=== PATIENT | male | born 1935 | race Caucasian/White ===

== ENCOUNTER 2020-03-06 10:40 | Observation (INO) ==
[2020-03-06] MEDS ORDERED: DiphenhydrAMINE HCL 50 MG/ML VIAL IV STA (11:07)
[2020-03-06] MEDS ORDERED: methylPREDNISolone 125 MG/2 ML VIAL IV STA (11:07)
[2020-03-06] MEDS ORDERED: FAMOTIDINE 20 MG in SYRINGE 3 ML IV STA (11:07)
[2020-03-06] MEDS ORDERED: SODIUM CHLORIDE 0.9% 500 ML IV ONE (11:07)
[2020-03-06 11:32] LABS: Basophils # (auto) 0.02 K/uL (0-0.2); Basophils % (auto) 0.3 %; Eosinophils # (auto) 0.12 K/uL (0-0.5); Eosinophils % (auto) 1.9 %; Hematocrit (blood only) 39.2 % (42-52); Hemoglobin 12.9 g/dL (14.0-18.0); Lymphocytes # (auto) 1.38 K/uL (1.2-3.4); Lymphocytes % (auto) 22.1 %; Mean Corpuscular Hemoglobin 30.6 pg (25-34); Mean Corpuscular Hgb Conc 32.9 g/dL (32-36); Mean Corpuscular Volume 92.9 fL (80-100); Mean Platelet Volume 10.5 fL (7.4-10.4); Monocytes # (auto) 0.48 K/uL (0.11-0.59); Monocytes % (auto) 7.7 %; Neutrophils # (auto) 4.25 K/uL (1.4-6.5); Platelet Count 204 K/uL (130-400); RDW Coefficient of Variation 13.6 % (11.5-14.5); Red Blood Count 4.22 M/uL (4.7-6.1); White Blood Count 6.25 K/uL (4.8-10.8)
[2020-03-06 11:41] LABS: Appearance Urine Clear (Clear); Bacteria Urine Automated Negative (Negative); Bilirubin Urine Negative (Negative); Blood Urine Negative (Negative); Color Urine Yellow; Epithelial Cell Urine Auto 0-5 /lpf (0-5); Glucose Urine UA 3+ (Negative); Ketones Urine Trace (Negative); Leukocyte Esterase Urine Negative (Negative); Nitrite Urine Negative (Negative); Protein Urine Trace (Negative); RBC Urine Automated 0-4 /hpf (0-4); Specific Gravity Urine 1.027 (1.000-1.030); Urobilinogen Urine Negative (Negative)
[2020-03-06 11:43] LABS: Partial Thromboplastin Ratio 0.7; Partial Thromboplastin Time 20.1 Seconds (21.0-31.0); Prothrombin Time 10.9 Seconds (9.0-12.0)
[2020-03-06 11:54] LABS: Alanine Aminotransferase 24 U/L (12-78); Albumin Globulin Ratio 0.9 (0.9-2); Albumin Level 3.5 gm/dl (3.4-5.0); Alkaline Phosphatase 71 U/L (45-117); Aspartate Aminotransferase 24 U/L (15-37); BUN Creatinine Ratio 12.2 (10-20); Bilirubin,Total 0.5 mg/dl (0.2-1); Blood Urea Nitrogen 14 mg/dl (7-18); Calcium 9.2 mg/dl (8.5-10.1); Carbon Dioxide 27 mmol/L (21-32); Chloride 107 mmol/L (98-107); Creatinine Clr Calc Pharmacy 43.5 ml/min; Est GFR (African American) 68.1; Est GFR (Non-African American) 58.7; Globulin 4.1 gm/dl (2.5-4.0); Glucose 173 mg/dl (70-99); Magnesium 1.6 mg/dl (1.8-2.4); Potassium 4.5 mmol/L (3.5-5.1); Sodium 139 mmol/L (136-145); Total Protein 7.6 gm/dl (6.4-8.2); Troponin I < 0.015 ng/ml (0-0.045)
[2020-03-06] MEDS ORDERED: FAMOTIDINE 20MG/5ML IV PUSH IV ONE (11:55)
--- NOTE | 2020-03-06 12:00 | XRay Report ---
XR chest 1V portable HISTORY: 84 years-old Male Pt c/o AMS acutely altered mental status COMPARISON: CT abdomen pelvis 03/03/2020 TECHNIQUE: Portable AP view of the chest FINDINGS: Cardiomegaly. Prior median sternotomy. Left subclavian pacer. Minimal bibasilar atelectasis, left gre ater than right. No pneumothorax, large pleural effusion, overt pulmonary edema or airspace consolida tion typical for pneumonia. Degenerative changes of the shoulders and spine. IMPRESSION: Cardiomegaly without acute process. ACT 112: Negative or not required by law. The above report was generated using voice recognition software. It may contain grammatical, syntax o r spelling errors. Electronically signed by: Jasen Garcia M.D. 03/06/2020 11:59 AM
[2020-03-06] MEDS ORDERED: MAGNESIUM SULFATE / D5W 1 GM/100 ML BAG IV STA (12:04)
[2020-03-06] MEDS ORDERED: OPTIRAY 320 125ml IV PRN (12:23)
--- NOTE | 2020-03-06 12:43 | CT Scan Report ---
CT SCAN OF THE BRAIN WITHOUT IV CONTRAST CLINICAL HISTORY: Strokelike symptoms. Change in mental status. COMPARISON STUDY: No priors. TECHNIQUE: Unenhanced axial CT scan of the brain is performed from the vertex to the skull base. A do se lowering technique was utilized adhering to the principles of ALARA. CT DOSE: 1101.86 mGy.cm FINDINGS: Brain parenchyma: There are age-related involutional changes noting mild to moderate subcortical and periventricular microangiopathic change. There is no hemorrhage, mass effect, or evidence of acute t erritorial ischemia by CT criteria. Lgoan-white matter differentiation is preserved. No extra-axial fl uid collection is seen. Ventricles, sulci, cisterns: Prominent secondary to involutional change. Intracranial vasculature: There is atherosclerotic calcification of the cavernous carotid and vertebr al arteries. Calvarium: Unremarkable. Sinuses and mastoids: Trace mucosal thickening is seen in the left maxillary antrum. The remaining vi sualized paranasal sinuses are clear. The mastoid air cells are well pneumatized. Orbits: The bony orbits are grossly intact. There are bilateral ocular lens implants. IMPRESSION: There is no hemorrhage, mass effect, or evidence of acute territorial ischemia by CT dez way. ACT 112: Negative or not required by law. Electronically signed by: Art Platt M.D. 03/06/2020 12:42 PM
--- NOTE | 2020-03-06 12:43 | CT Scan Report ---
NECK CTA HISTORY: Confusion. Stroke evaluation TECHNIQUE: Multiaxial CT images of the neck were performed following the intravenous administration o f contrast to evaluate the major cervical vessels. Maximum intensity projection images were also obta ined. All measurements were calculated based on NASCET criteria. A dose lowering technique was utili zed adhering to the principles of ALARA. COMPARISON STUDY: None. FINDINGS: The aortic arch and proximal great vessels are widely patent. There is no significant sten osis, occlusion, or dissection identified within the bilateral common carotid or vertebral arteries. Left-sided pacemaker wires and poststernotomy changes are noted. There is a 4.1 cm left thyroid nodul e. There is also a 1.7 cm substernal midline nodule which is also likely of thyroid origin. Mild calc ified plaque at the aortic arch/proximal great vessels. Mild calcified plaque within the proximal patience ateral internal carotid arteries. This results in up to 50% focal stenosis at the proximal left inter nal carotid artery and 20% stenosis of the proximal right internal carotid artery. IMPRESSION: 1. Mild calcified plaque within the bilateral carotid bifurcations. This results in 50% focal stenosi s of the proximal left internal carotid artery and 20% stenosis of the proximal right and throughout carotid artery. 2. A 4.1 cm left thyroid nodule as well as a 1.7 cm substernal area nodule. ACT 112: Negative or not required by law. Electronically signed by: Javi Hernandez M.D. 03/06/2020 12:42 PM
--- NOTE | 2020-03-06 12:44 | CT Scan Report ---
CT angio head w con CLINICAL HISTORY: 84 years-old Male with Stroke evaluation . Acute strokelike symptoms COMPARISON STUDY: Head CT of same day TECHNIQUE: Following the IV administration of 119 cc of Optiray 320, CT angiogram of the brain was pe rformed from the skull base to the vertex. Images are reviewed in the axial, sagittal, and coronal pl anes. 3-D MIPS images are created and assessed. IV contrast was administered without complication. Al l measurements were obtained according to NASCET criteria. A dose lowering technique was utilized adh ering to the principles of ALARA. FINDINGS: CT ANGIOGRAM OF THE BRAIN: The imaged bilateral internal carotid arteries are patent. Moderate calcified plaque of the cavernous and supraclinoid segments. The bilateral anterior and middle cerebral arteries are also patent. The vertebrobasilar system and posterior cerebral arteries are patent with mild multifocal luminal narrow ing of the posterior cerebral arteries. There is no aneurysm, high-grade stenosis, or proximal branch occlusion identified. Dural sinuses appear patent. Prior bilateral lens replacement. Age-related inv olutional changes. Minimal mucosal thickening of the maxillary sinuses and ethmoid air cells. IMPRESSION: Unremarkable CTA of the head without aneurysm, dissection, high-grade stenosis or proxima l branch occlusion. ACT 112: Negative or not required by law. The above report was generated using voice recognition software. It may contain grammatical, syntax o r spelling errors. Electronically signed by: Jasen Garcia M.D. 03/06/2020 12:43 PM
--- NOTE | 2020-03-06 12:50 | Electrocardiogram Report ---
Test Reason : Blood Pressure : / mmHG Vent. Rate : 062 BPM Atrial Rate : 062 BPM P-R Int : 154 ms QRS Dur : 202 ms QT Int : 458 ms P-R-T Axes : 016 -58 124 degrees QTc Int : 464 ms Poor data quality, interpretation may be adversely affected Atrial-sensed ventricular-paced rhythm Abnormal ECG When compared with ECG of 03-MAR-2020 14:12, Vent. rate has increased BY 2 BPM Confirmed by Ruiz Wheeler ([id number]) on 03/06/2020 12:50:13 PM Referred By: Confirmed By:Ruiz Wheeler
[2020-03-06 12:52] LABS: Lyme Ab IgM w/WB Rflx Negative (Negative)
[2020-03-06] MEDS ORDERED: cefTRIAXone SODIUM 2,000 MG/70 ML BAG IV STA (13:09)
[2020-03-06 13:16] LABS: Lyme Ab IgG w/WB Rflx Positive (Negative)
[2020-03-06] MEDS ORDERED: DOXYCYCLINE HYCLATE 100 MG CAP PO STA (13:27)
--- NOTE | 2020-03-06 14:38 | History & Physical Report ---
Date of Service March 06, 2020 Assessment & Plan (1) Altered mental status: Pt is 84 y/o M with PMH CAD s/p CABG, stent, PAF s/p watchman procedure in 2018 no longer on Coumadin, h/o carotid artery stenosis with 70% stenosis of LICA with failed previous attempt at stent now on aspirin and Plavix, SSS s/p pacemaker, HTN, HLD, DM II, h/o thyroid nodule, COPD, anxiety, depression, insomnia, h/o bladder stimulator for urinary incontinence placed in 2004, inguinal hernia presented to ER with c/o increased agitation and confusion x 2 weeks. 02/13/2020 Zoloft and Trazodone were started and lorazepam was discontinued. Reports only took Zoloft for approx 2 weeks and stopped. Lorazepam restarted by PCP on 03/01/2020 secondary to pt's increased anxiety and agitation. Pt also taking hydrocodone for lower abdominal pain from hernia and bladder stimulator. In ER pt afebrile, vitals stable. No leukocytosis, magnesium: 1.6, otherwise no significant electrolyte abnormality, UA not consistent with UTI CT HEAD: There is no hemorrhage, mass effect, or evidence of acute territorial ischemia by CT criteria. CTA HEAD: Unremarkable CTA of the head without aneurysm, dissection, high-grade stenosis or proximal branch occlusion. CTA NECK:1. Mild calcified plaque within the bilateral carotid bifurcations. This results in 50% focal stenosis of the proximal left internal carotid artery and 20% stenosis of the proximal right and throughout carotid artery. 2. A 4.1 cm left thyroid nodule as well as a 1.7 cm substernal area nodule. CXR: Cardiomegaly without acute process. CT's head without acute finding of stroke. No focal deficits on exam. Will hold on MRI at this time as pt has pacemaker. Symptoms may be secondary to medication withdrawal of ativan, medication interaction with ativan, hydrocodone or new medication side effect. No signs of acute infection at this time In ER pt currently calm and cooperative and appears oriented tox screen pending Continue pt's ativan. Will continue hydrocodone prn with careful spacing to try to avoid ativan and hydrocodone being given similar times PT/OT consult Will continue pt's statin, Plavix and aspirin Monitor for further AMS, delirium If worsening symptoms consider neurology consult (2) Hypomagnesemia: Magnesium: 1.6 In ER given magnesium 1GM IV Monitor magnesium and BMP in am (3) Rash: Pt with noted erythematous, non-pruritic rash to back and chest when in ER Pt with h/o Lyme disease in 2014 and had reported bulls-eye rash at that time Today in ER given Rocephin and doxycycline in case this was tick borne related rash At this time rash does not appear to be consistent with erythema migrans or consistent with other tick borne illnesses. Pt without any fevers, myalgias, arthralgias. No leukocytosis or leukopenia, no thrombopenia and normal LFTs Lyme IGG positive with Western blot pending. Anaplasmosis PCR pending Pt received solumedrol, benadryl, pepcid in ER for the contrast CT as has h/o hives with IVP dye and since rash has improved Rash may be drug reaction Continue to monitor rash and if reoccurs consider secondary to new medication he is on (trazodone, pt no longer taking zoloft) (4) Anxiety and depression: Recent med changes with d/c Ativan on 02/13/2020 (Unsure if pt had some remaining from prior prescription and was still taking, but fairly sure pt did not have any for approx 2 weeks). Was restarted 03/01/2020 secondary to increased anxiety and agitation Trazodone and Zoloft started on 02/13/2020. Took Zoloft for 2 weeks and self discontinued. Continue ativan prn, continue trazodone for now (5) Abdominal hernia: H/O inguinal hernia with lower abdominal pain. Following with general surgery. Consideration of hernia repair in the future Continue hydrocodone prn (6) CAD (coronary artery disease): S/P Stent and CABG No CP or SOB Continue aspirin, atorvastatin, metoprolol (7) SSS (sick sinus syndrome): S/P pacemaker Paced rhythm on EKG (8) Paroxysmal atrial fibrillation: s/p watchman procedure in 2018 no longer on Coumadin Continue metoprolol (9) Diabetes mellitus, type II: A1c: 6.8 on 02/14/2020 Hold metformin Novolog sliding scale per protocol (10) COPD (chronic obstructive pulmonary disease): No signs of exacerbation Continue home inhalers (11) HTN (hypertension): Stable Continue amlodipine, metoprolol (12) Carotid stenosis: h/o carotid artery stenosis with 70% stenosis of LICA with failed previous attempt at stent now on aspirin and Plavix Todays CTA neck: Mild calcified plaque within the bilateral carotid bifurcations. This results in 50% focal stenosis of the proximal left internal carotid artery and 20% stenosis of the proximal right and throughout carotid artery. Continue aspirin and Plavix (13) Thyroid nodule: Known thyroid nodule Today's CTA neck: 4.1 cm left thyroid nodule as well as a 1.7 cm substernal area nodule (14) Urinary incontinence: H/O urinary incontinence with bladder stimulator placed in 2004. Reported stimulator no longer working. Has upcoming appointment with urology in [place] next week -Pt is able to urinate DVT Prophylaxis -Lovenox SQ DNR/DNI as per discussion with pt Follows with Dr Joey Gutierrez for routine care Pt was seen and care coordinated with Dr Rodas. See addendum History of Present Illness Chief Complaint: AMS Primary Care Provider: Kori Gutierrez MD Pt is 84 y/o M with PMH CAD s/p CABG, stent, PAF s/p watchman procedure in 2017 no longer on coumadin, h/o carotid artery stenosis with 70% stenosis of LICA with failed previous attempt at stent now on aspirin and Plavix, SSS s/p pacemaker, HTN, HLD, DM II, h/o thyroid nodule, COPD, anxiety, depression, insomnia, h/o bladder stimulator for urinary incontinence placed in 2004, inguinal hernia presented to ER with c/o altered mental status. History assistance from pt's daughter. Pt with reported increased anxiety and depression since staying at home with the current pandemic. on 02/13/2020 Zoloft and Trazodone were started and lorazepam was discontinued. Daughter is unsure if pt had any lorazepam left over but does believe pt hasn't take for at least two weeks until it was restarted by PCP on 03/01/2020 secondary to pt's increased anxiety and agitation. Reports only took zoloft for approx 2 weeks and stopped. Daughter reports PCP was unaware that pt had been taking lorazepam 1-2 tabs daily and reports has been on for 30 years. Pt also taking hydrocodone for lower abdominal pain from hernia and bladder stimulator. Pt to have upcoming appointment with urology as stimulator no longer working. Pt able to urinate. Did count his pills and he has only taken 8 hydrocodone pills in the last 6 days. Unsure if pt taking lorazepam and hydrocodone too close together. Reports past 2 weeks pt has been more agitated and accusing of having an affair and being very agitated with which is very unusual. Yesterday reports thought pt may have had some slurred speech but pt had no extremity weakness, no facial drooping. Daughter states noticed decline over past 2 weeks and hasn't been able to have full conversation with pt. Have been taking temperature regularly at home and no fevers reported. Denies cough, SOB, CP, N/V/D. Was unaware of any rash however when took pt's shirt off in ER today noticed a red rash to back and upper chest that was non-pruritic. H/O lyme disease in 2014 requiring hospitalization at [facility]. Denies any known recent tick bites or insect bites. Pt has been staying mostly indoors. Denies ill contacts. Denies SCHMITT, dizziness, syncope, vision changes, neck pain, CP, SOB, orthopnea, palpit ations, cough, sore throat, choking, otalgia, rhinorrhea, paresthesias, weakness, extremity weakness, extremity edema, dysuria, hematuria. Allergies Allergy/AdvReac Type Severity Reaction Status Date / Time isosorbide Allergy Severe GI SYMPTOMS Verified 03/06/20 12:28 IODINE CONTRAST Allergy Severe HIVES Uncoded 03/06/20 12:28 SULFA Allergy Severe RASH Uncoded 03/06/20 12:28 Home Medications Home Medications Medication Instructions Recorded Confirmed Type albuterol sulfate 2.5 mg INHALATION Q4H PRN 03/03/20 03/06/20 History amlodipine 5 mg PO DAILY 03/03/20 03/06/20 History aspirin [Aspirin Low Dose] 81 mg PO DAILY 03/03/20 03/06/20 History atorvastatin 20 mg PO PM 03/03/20 03/06/20 History budesonide-formoterol [Symbicort] 2 puff INHALATION BID 03/03/20 03/06/20 History clopidogrel 75 mg PO DAILY 03/03/20 03/06/20 History fluticasone propionate 2 spray INTRANASAL DAILY 03/03/20 03/06/20 History hydrocodone-acetaminophen 1 tab PO Q8H PRN 03/03/20 03/06/20 History lorazepam 1 mg PO Q8H PRN 03/03/20 03/06/20 History metformin 500 mg PO BID 03/03/20 03/06/20 History metoprolol tartrate 50 mg PO BID 03/03/20 03/06/20 History omeprazole 20 mg PO BID 03/03/20 03/06/20 History sertraline 25 mg PO DAILY 03/06/20 03/06/20 History trazodone 50 mg PO DAILY 03/06/20 03/06/20 History Past Med/Surg History Medical History (Updated 03/06/20 @ 16:11 by Zuly Mays PA-C) Abdominal hernia Anxiety and depression Bronchiectasis CAD (coronary artery disease) Carotid stenosis COPD (chronic obstructive pulmonary disease) Diabetes (Inactive) Diabetes mellitus, type II GERD (gastroesophageal reflux disease) Heart disease (Inactive) HLD (hyperlipidemia) HTN (hypertension) Insomnia Pacemaker Paroxysmal atrial fibrillation SSS (sick sinus syndrome) Thyroid nodule Surgical History (Updated 03/06/20 @ 15:12 by Zuly Mays PA-C) History of bladder surgery Has bladder stimulator History of heart artery stent Hx of CABG Social History (Updated 03/03/20 @ 12:53 by Robbie Moses MD) Smoking Status: Never smoker Hx Alcohol Use: No Hx Substance Use: No Preferred Language: Fijian Communication Ability: Effective Beliefs That Will Affect Care: None Current Living Situation: Spouse Current [facility] Situation Comment[email or web address] current occupational status: retired Other Information That Helps Us Care for You: No Feels Safe at Home: Yes Safety Concerns: Feels Safe At This Time Review of Systems Review of Systems: All systems reviewed & are unremarkable except as noted in HPI & below Physical Exam Physical Exam: General: no distress, WDWN Head: normocephalic, atraumatic Eyes: Very Hard of hearing, PERRL, EOM's intact, conjunctiva non-injected, anicteric ENT: normal inspection external ears, nose, mucous membranes moist Neck: supple, trachea midline Lungs: clear, no respiratory distress, no wheezing/rhonchi/rales CV: RRR, no murmur, no pretibial edema Abd: normal BS, soft, non-tender Ext: no cyanosis, no calf tenderness, able to move extremities, sensation to light touch intact Neuro: A&O to person, place, knows president, no focal deficits noted, normal affect Skin: warm, dry, faint pink macules to upper back, no significant rash to chest and no rash noted to extremities Results & Data Results & Data ([facility]) Vital Signs (Past 12 Hours) Vital Signs Temp Pulse Pulse Resp BP BP Pulse Ox 03/06/20 14:24 60 16 147/78 H 93 03/06/20 13:31 60 16 163/64 H 95 03/06/20 12:04 60 22 120/70 97 03/06/20 10:49 36.5 C 61 16 125/72 98 Laboratory Results Short CBC 03/06/20 Range/Units 11:22 WBC 6.25 (4.8-10.8) K/uL Hgb 12.9 L (14.0-18.0) g/dL Hct 39.2 L (42-52) % Plt Count 204 (130-400) K/uL BMP 03/06/20 11:22 Sodium 139 Potassium 4.5 Chloride 107 Carbon Dioxide 27 BUN 14 Creatinine 1.14 Glucose 173 H Calcium 9.2 Cardiac Enzymes 03/06/20 Range/Units 11:22 Troponin I < 0.015 (0-0.045) ng/ml Liver Function 03/06/20 Range/Units 11:22 Total Bilirubin 0.5 (0.2-1) mg/dl AST 24 (15-37) U/L ALT 24 (12-78) U/L Alkaline Phosphatase 71 (45-117) U/L Albumin 3.5 (3.4-5.0) gm/dl Urine 03/06/20 Range/Units 11:22 Urine Color Yellow Urine Appearance Clear (Clear) Urine pH 5.0 (4.5-7.5) Ur Specific [place] 1.027 (1.000-1.030) Urine Protein Trace H (Negative) Urine Glucose (UA) 3+ H (Negative) Diagnostic Findings CT HEAD: IMPRESSION: There is no hemorrhage, mass effect, or evidence of acute territorial ischemia by CT criteria. CTA HEAD: IMPRESSION: Unremarkable CTA of the head without aneurysm, dissection, high- grade stenosis or proximal branch occlusion. CTA NECK: IMPRESSION: 1. Mild calcified plaque within the bilateral carotid bifurcations. This results in 50% focal stenosis of the proximal left internal carotid artery and 20% stenosis of the proximal right and throughout carotid artery. 2. A 4.1 cm left thyroid nodule as well as a 1.7 cm substernal area nodule. CXR: IMPRESSION: Cardiomegaly without acute process. ECG Findings: + paced rhythm Supervising Physician Co-Signing Physician Notes I saw this patient with the physician delivery driver assistant, I participated in the history, physical, review of systems, and physical exam. I reviewed the medications with the patient and the physician delivery driver assistant and helped reconcile the medications. I helped take a detailed family and social history as well. I formulated the assessment and plan personally with the physician delivery driver assistant and went over it with the patient. ROS-No Headache, No Visual Changes, No Nausea, No Vomiting, No Fever, No Chills, No Neck Pain or Stiffness, No Chest Pain, No Palpitations, No SOB, No VALE, No Cough, No Sputum, No Wheezing, No Abdominal Pain, No Diarrhea, No Hematemesis, No Hemoptysis, No Unexpected Weight Loss, No Flank pain, No Melena, No Hematochezia, No Frequency, No Urgency, No Burning, No Hematuria, No Rashes, No Diaphoresis. Appetite is Normal Physical Exam Gen-AAO x 3, NAD, Afebrile Head-NCAT, EOMI, PERRLA, Anicteric Sclera, No Posterior Pharyngeal Erythema Neck-Supple, No JVD, No Thyromegaly, No Masses, No LAD, No Bruits Lungs-Clear to Auscultation Bilaterally, No Rales, No Rhonchi, No Wheezing, No Crepitus Chest-No S4, +S1, +S2, No S3, No Murmurs, No Rubs, No Gallops, No Ectopy Abdomen-Soft, Bowel Sounds Present, Non Tender, Non Distended, No Hepatomegaly, No Splenomegaly, No Palpable Masses, No Rebound, No Rigidity, No Guarding Musculoskeletal-Full Range of Motion Bilaterally, No CVAT Extremities-No Cyanosis, No Clubbing, No Edema Nuero-Cranial Nerves II-XII grossly intact, Motor WNL, DTRs WNL, Strength WNL, Non Focal Psych-Normal Mood
[2020-03-06] MEDS ORDERED: ALBUTEROL 0.083% NEBU SOLN 3 ML VIAL INH PRN (15:52)
[2020-03-06] MEDS ORDERED: GLUCOSE 40% GEL 15 GM TUBE PO PRN (15:52)
[2020-03-06] MEDS ORDERED: ACETAMINOPHEN 325 MG TAB PO PRN (15:52)
[2020-03-06] MEDS ORDERED: GLUCAGON FOR INJ 1 MG VIAL SQ PRN (15:52)
[2020-03-06] MEDS ORDERED: DEXTROSE 50% 50 ML SYRINGE IV PRN (15:52)
[2020-03-06] MEDS ORDERED: CARBOHYDRATES FOR HYPOGLYCEMIA PO PRN (15:52)
[2020-03-06] MEDS ORDERED: GLUCOSE 10 TABS/TUBE PO PRN (15:52)
[2020-03-06] MEDS ORDERED: POLYETHYLENE (MIRALAX) 17 GM PACK PO PRN (15:52)
[2020-03-06] MEDS ORDERED: HYDROCODONE/ACETAMOPHEN 5/325MG TAB PO PRN (16:18)
[2020-03-06] MEDS ORDERED: LORazepam 1 MG TAB PO PRN (16:19)
[2020-03-06] MEDS: INSULIN ASPART 100 UNITS/ML 3 ML PEN SC SCH ×2 (17:37→21:18)
[2020-03-06 18:41] LABS: Amphetamines+Metham, Urine Neg (Neg); Barbiturates, Urine Neg (Neg); Benzodiazepine, Urine Neg (Neg); Cocaine, Urine Neg (Neg); MDMA (Ecstacy), Urine Neg (Neg); Methadone, Urine Neg (Neg); Opiate, Urine Pos (Neg); Phencyclidine, Urine Neg (Neg)
[2020-03-06] MEDS: PANTOprazole 40 MG TAB PO SCH (20:23)
[2020-03-06] MEDS: METOPROLOL TARTRATE 50 MG TAB PO SCH (20:23)
[2020-03-06] MEDS ORDERED: TRAZODONE HCL 50 MG TAB PO SCH (21:00)
[2020-03-06] MEDS ORDERED: ENOXAPARIN INJ 30 MG/0.3 ML SYR SQ SCH (21:00)
[2020-03-06] MEDS ORDERED: ATORVASTATIN 20 MG TAB PO SCH (21:00)
[2020-03-07] MEDS: PANTOprazole 40 MG TAB PO SCH (07:30)
[2020-03-07] MEDS: METOPROLOL TARTRATE 50 MG TAB PO SCH (07:30)
[2020-03-07 08:12] LABS: Hematocrit (blood only) 37.2 % (42-52); Hemoglobin 12.2 g/dL (14.0-18.0); Mean Corpuscular Hemoglobin 29.8 pg (25-34); Mean Corpuscular Hgb Conc 32.8 g/dL (32-36); Mean Platelet Volume 9.3 fL (7.4-10.4); Platelet Count 252 K/uL (130-400); RDW Coefficient of Variation 13.4 % (11.5-14.5); RDW Standard Deviation 44.4 fL (36.4-46.3); Red Blood Count 4.09 M/uL (4.7-6.1); White Blood Count 8.63 K/uL (4.8-10.8)
[2020-03-07 08:48] LABS: BUN Creatinine Ratio 15.7 (10-20); Calcium 9.2 mg/dl (8.5-10.1); Creatinine Clr Calc Pharmacy 43.1 ml/min; Est GFR (African American) 67.4; Est GFR (Non-African American) 58.1; Magnesium 1.9 mg/dl (1.8-2.4); Potassium 4.3 mmol/L (3.5-5.1)
[2020-03-07] MEDS: INSULIN ASPART 100 UNITS/ML 3 ML PEN SC SCH ×3 (08:52→16:53)
[2020-03-07] MEDS ORDERED: CLOPIDOGREL BISULFATE 75 MG TAB PO SCH (09:00)
[2020-03-07] MEDS ORDERED: SERTRALINE HCL 50 MG TABLET PO SCH (09:00)
[2020-03-07] MEDS ORDERED: FLUTICASONE/VILANTEROL 100/25MCG 14 PUFFS/INHALER INH SCH (09:00)
[2020-03-07] MEDS ORDERED: ASPIRIN 81 MG ECTAB PO SCH (09:00)
[2020-03-07] MEDS ORDERED: AMLODIPINE BESYLATE 5 MG TAB PO SCH (09:00)
[2020-03-07] MEDS ORDERED: FLUTICASONE PROPIONATE NA SPR 16 GM BTL NAE SCH (09:00)
--- NOTE | 2020-03-07 10:37 | Emergency Department Note ---
History of Present Illness General Chief complaint: Confusion Stated complaint: SENT BY FOR CT HEAD CONFUSION, Time Seen by Provider: 03/06/20 10:57 Source: patient, family (daughter), RN notes reviewed and old records reviewed Mode of arrival: ambulatory Limitations: altered mental status History of Present Illness Provider complaint: Altered mental status Onset (ago): week(s) 2 Maximum Pain Intensity: 5 Associated symptoms: + confusion and + other (rash); no chest pain, no diaphoresis, no fever/chills, no headaches, no nausea/vomiting and no shortness of breath Treatments prior to arrival: none This is an 84-year-old male who presents the emergency department complaining of altered mental status. The patient was at a routine cardiology appointment today which she was going to for a hernia repair. The mine production engineer was concerned about the patient's change in mentation therefore sent the patient to the emergency department. Patient's daughter relates that he had multiple medication changes about 2 weeks ago including being taking off lorazepam and being started on 2 psychiatric medications. Since that time the patient has become increasingly agitated. In addition the patient has a diffuse rash present on his chest extremities and back. The patient does have a history of Lyme disease. Patient denies any pain. Home Medications Home Medications Medication Instructions Recorded Confirmed Type albuterol sulfate 2.5 mg INHALATION Q4H PRN 03/03/20 03/06/20 History amlodipine 5 mg PO DAILY 03/03/20 03/06/20 History aspirin [Aspirin Low Dose] 81 mg PO DAILY 03/03/20 03/06/20 History atorvastatin 20 mg PO PM 03/03/20 03/06/20 History budesonide-formoterol [Symbicort] 2 puff INHALATION BID 03/03/20 03/06/20 History clopidogrel 75 mg PO DAILY 03/03/20 03/06/20 History fluticasone propionate 2 spray INTRANASAL DAILY 03/03/20 03/06/20 History hydrocodone-acetaminophen 1 tab PO Q8H PRN 03/03/20 03/06/20 History lorazepam 1 mg PO Q8H PRN 03/03/20 03/06/20 History metformin 500 mg PO BID 03/03/20 03/06/20 History metoprolol tartrate 50 mg PO BID 03/03/20 03/06/20 History omeprazole 20 mg PO BID 03/03/20 03/06/20 History sertraline 25 mg PO DAILY 03/06/20 03/06/20 History trazodone 50 mg PO DAILY 03/06/20 03/06/20 History Allergies Allergy/AdvReac Type Severity Reaction Status Date / Time isosorbide Allergy Severe GI SYMPTOMS Verified 03/06/20 12:28 IODINE CONTRAST Allergy Severe HIVES Uncoded 03/06/20 12:28 SULFA Allergy Severe RASH Uncoded 03/06/20 12:28 Past Med/Surg History Medical History Abdominal hernia Anxiety and depression Bronchiectasis CAD (coronary artery disease) Carotid stenosis COPD (chronic obstructive pulmonary disease) Diabetes (Inactive) Diabetes mellitus, type II GERD (gastroesophageal reflux disease) Heart disease (Inactive) HLD (hyperlipidemia) HTN (hypertension) Insomnia Pacemaker Paroxysmal atrial fibrillation SSS (sick sinus syndrome) Thyroid nodule Surgical History History of bladder surgery Has bladder stimulator History of heart artery stent Hx of CABG Social History Smoking Status: Never smoker Hx Alcohol Use: No Hx Substance Use: No Preferred Language: Bengali Communication Ability: Effective Beliefs That Will Affect Care: None Current Living Situation: Spouse Current Living Situation Comment: [facility] [employer] current occupational status: retired Other Information That Helps Us Care for You: No Feels Safe at Home: Yes Safety Concerns: Feels Safe At This Time Review of Systems A total of 10 systems reviewed and were otherwise negative Physical Exam Vital Signs Vital Signs - 24 hr 03/06/20 12:04 03/06/20 13:31 Pulse Rate [Left Finger] 60 60 Respiratory Rate 22 16 Blood Pressure [Left Arm] 120/70 163/64 H Blood Pressure Mean [Left Arm] 86 97 Pulse Oximetry 97 95 Oxygen Delivery Method Room Air VITAL SIGNS - Vital signs and nursing notes were reviewed. GENERAL - 84-year-old male appearing stated age who is in no acute distress. Communicates well with provider and answers questions appropriately. SKIN - diffuse petechial like rash to back and front HEAD - NC/AT. EYES - PERRL with EOMI bilaterally. Sclera anicteric. Palpebral conjunctiva pink and moist with no injection noted. EARS - No deformities of external structures noted on gross examination bilaterally. No pain elicited with palpation of the tragus bilaterally. External auditory canals without discharge or otorrhea. Tympanic membranes pearly logan without retraction or bulging. No fluid or purulent material visualized behind the TM. Handle of malleus, umbo, cone of light, pars tensa/flaccid all easily visualized. NOSE - Midline and without cyanosis. No epistaxis or purulent drainage noted. Septum midline without deviation or septal hematoma noted. MOUTH/OROPHARYNX - Without perioral cyanosis. Buccal mucosa pink and moist and without leukoplakia. Tongue midline with equal elevation of palate bilaterally. No tonsillar hypertrophy, erythema, or exudates noted. dentition noted. NECK - Neck with FROM. Supple to palpation. lymphadenopathy noted. No nuchal rigidity. LUNGS - Chest wall symmetric without accessory muscle use, intercostals retractions, or central cyanosis. Normal vesicular breath sounds CTA B/L. No wheezes, rales, or rhonchi appreciated. CARDIAC - RRR with S1/S2. No murmur, rubs, or gallops appreciated. ABDOMEN - Abdominal contour without pulsations or visible masses. BS normoactive all four quadrants. No tenderness, palpable masses, hepatosplenomegaly, or ascites noted. EXTREMITIES - No clubbing or peripheral cyanosis. No pretibial edema present. +3/5 radial, posterior tibial, and dorsalis pedis pulses palpated throughout. +5/5 strength noted in UE/LE bilaterally. NEUROLOGIC - Cranial nerves II through XII grossly intact. Sensory intact to light touch throughout. Patellar reflexes +2/4. PSYCH - A&Ox3 and cooperates fully with examiner. Pt is very pleasant and interacts well with examiner. Course Administered Medications Acetaminophen (Tylenol) 650 mg PO Q4H PRN PRN Reason: Pain or Fever Stop: 04/05/20 15:51 Last Admin: 03/07/20 07:31 Dose: 650 mg Documented by: [id number] Hydrocodone Bitart/Acetaminophen ([place] 5/325) 1 tab PO Q8H PRN PRN Reason: Pain Stop: 03/20/20 16:17 Last Admin: 03/06/20 23:15 Dose: 1 tab Documented by: [id number] Albuterol (Ventolin 0.083% 2.5mg/3ml) 2.5 mg INH Q4H PRN PRN Reason: Shortness Of Breath Or Wheezing Stop: 04/05/20 15:51 Last Admin: 03/06/20 20:37 Dose: 2.5 mg Documented by: [id number] Amlodipine Besylate (Norvasc) 5 mg PO DAILY [facility] Stop: 04/06/20 08:59 Last Admin: 03/07/20 07:30 Dose: 5 mg Documented by: [id number] Aspirin (Ecotrin Ectab) 81 mg PO DAILY [facility] Stop: 04/06/20 08:59 Last Admin: 03/07/20 07:29 Dose: 81 mg Documented by: [id number] Atorvastatin Calcium (Lipitor) 20 mg PO PM [facility] Stop: 04/05/20 20:59 Last Admin: 03/06/20 20:23 Dose: 20 mg Documented by: [id number] Clopidogrel Bisulfate (Plavix) 75 mg PO DAILY [facility] Stop: 04/06/20 08:59 Last Admin: 03/07/20 07:30 Dose: 75 mg Documented by: [id number] Enoxaparin Sodium (Lovenox) 30 mg SQ Q24H [facility] Stop: 04/05/20 15:51 Last Admin: 03/06/20 20:23 Dose: 30 mg Documented by: [id number] Fluticasone Propionate (Flonase) 2 sprays ALEXUS DAILY [facility] Stop: 04/06/20 08:59 Last Admin: 03/07/20 07:29 Dose: 2 sprays Documented by: [id number] Fluticasone/Vilanterol (Breo Ellipta 100/25 Mcg Inh) 1 puffs INH DAILY [facility] Stop: 04/06/20 08:59 Last Admin: 03/07/20 07:29 Dose: 1 puffs Documented by: [id number] Insulin Aspart (Novolog Flexpen) 0 units SC ACHS [facility] Stop: 04/05/20 16:29 Last Admin: 03/07/20 08:52 Dose: 4 units Documented by: [id number] Cosigned by: [id number] Admin: 03/06/20 21:18 Dose: 1 units Documented by: [id number] Cosigned by: [id number] Admin: 03/06/20 17:37 Dose: 2 units Documented by: [id number] Cosigned by: [id number] Metoprolol Tartrate (Lopressor) 50 mg PO BID [facility] Stop: 04/05/20 20:59 Last Admin: 03/07/20 07:30 Dose: 50 mg Documented by: [id number] Admin: 03/06/20 20:23 Dose: 50 mg Documented by: [id number] Pantoprazole Sodium (Protonix) 40 mg PO BID [facility] Stop: 04/05/20 20:59 Last Admin: 03/07/20 07:30 Dose: 40 mg Documented by: [id number] Admin: 03/06/20 20:23 Dose: 40 mg Documented by: [id number] Sertraline HCl (Zoloft) 25 mg PO DAILY [facility] Stop: 04/06/20 08:59 Last Admin: 03/07/20 07:30 Dose: 25 mg Documented by: [id number] Trazodone HCl (Desyrel) 50 mg PO HS [facility] Stop: 04/05/20 20:59 Last Admin: 03/06/20 20:22 Dose: 50 mg Documented by: [id number] Discontinued Medications Diphenhydramine HCl (Benadryl) 25 mg IV NOW STA Stop: 03/06/20 11:08 Last Admin: 03/06/20 11:57 Dose: 25 mg Documented by: [id number] Diphenhydramine HCl (Benadryl Capsule) 25 mg PO NOW ONE Stop: 03/07/20 04:16 Last Admin: 03/07/20 04:30 Dose: Not Given Documented by: [id number] Diphenhydramine HCl (Benadryl Capsule) Confirm Administered Dose 25 mg .ROUTE .STK-MED ONE Stop: 03/07/20 04:25 Last Admin: 03/07/20 04:30 Dose: 25 mg Documented by: [id number] Doxycycline Hyclate (Vibramycin) 100 mg PO NOW STA Stop: 03/06/20 13:28 Last Admin: 03/06/20 13:52 Dose: 100 mg Documented by: [id number] Famotidine (Pepcid 20mg Iv Push) Confirm Administered Dose 20 mg IV .STK-MED ONE Stop: 03/06/20 11:56 Last Admin: 03/06/20 11:57 Dose: 20 mg Documented by: [id number] Famotidine 20 mg/ Syringe 5 mls @ 2.5 mls/min IV NOW STA Stop: 03/06/20 11:08 Last Admin: 03/06/20 11:57 Dose: Not Given Documented by: [id number] Sodium Chloride (Nss) 500 mls @ 999 mls/hr IV .Q31M ONE Stop: 03/06/20 11:37 Last Infusion: 03/06/20 12:30 Dose: 0 mls/hr Documented by: [id number] Admin: 03/06/20 11:58 Dose: 999 mls/hr Documented by: [id number] Magnesium Sulfate/Dextrose (Magnesium Sulfate / D5w) 1 gm in 100 mls @ 100 mls/hr IV NOW STA Stop: 03/06/20 13:03 Last Infusion: 03/06/20 13:03 Dose: 0 mls/hr Documented by: [id number] Admin: 03/06/20 12:08 Dose: 100 mls/hr Documented by: [id number] Ceftriaxone Sodium (Rocephin) 2,000 mg in 70 mls @ 140 mls/hr IV NOW STA Stop: 03/06/20 13:38 Last Infusion: 03/06/20 14:10 Dose: 0 mls/hr Documented by: [id number] Admin: 03/06/20 13:35 Dose: 140 mls/hr Documented by: [id number] Ioversol (Optiray 320 125ml) 119 ml IV ONCE PRN PRN Reason: Interaction Checking Stop: 03/10/20 12:22 Last Admin: 03/06/20 12:23 Dose: 119 ml Documented by: [id number] Methylprednisolone (Solumedrol) 125 mg IV NOW STA Stop: 03/06/20 11:08 Last Admin: 03/06/20 11:57 Dose: 125 mg Documented by: [id number] Medical Decision Making Differential Diagnosis Infection, dehydration, metabolic abnormality, hypo/hyperglycemia, electrolyte disturbance, anemia, hypoxia, cardiac sources, intracerebral event, toxicologic, neurologic, as well as other pathologies. Medical Records Attestation: I reviewed the patient's medical records. Home Medications Current Medication List: was personally reviewed by me Laboratory Data Attestation: I reviewed the patient's lab results. Result diagrams: 03/07/20 07:42 03/07/20 07:42 Lab Results 03/06/20 03/06/20 03/06/20 Range/Units 11:22 11:22 11:22 WBC 6.25 (4.8-10.8) K/uL RBC 4.22 L (4.7-6.1) M/uL Hgb 12.9 L (14.0-18.0) g/dL Hct 39.2 L (42-52) % MCV 92.9 (80-100) fL MCH 30.6 (25-34) pg MCHC 32.9 (32-36) g/dL RDW Std Deviation 46.0 (36.4-46.3) fL RDW Coeff of Ashley 13.6 (11.5-14.5) % Plt Count 204 (130-400) K/uL MPV 10.5 H (7.4-10.4) fL Immature Gran % (Auto) 0.0 % Neut % (Auto) 68.0 % Lymph % (Auto) 22.1 % [place] % (Auto) 7.7 % Eos % (Auto) 1.9 % Baso % (Auto) 0.3 % Neut # (Auto) 4.25 (1.4-6.5) K/uL Lymph # (Auto) 1.38 (1.2-3.4) K/uL [place] # (Auto) 0.48 (0.11-0.59) K/uL Eos # (Auto) 0.12 (0-0.5) K/uL Baso # (Auto) 0.02 (0-0.2) K/uL Immature Gran # (Auto) 0.00 (0.00-0.02) K/uL PT 10.9 (9.0-12.0) Seconds INR 1.0 (0.9-1.1) APTT 20.1 L (21.0-31.0) Seconds PTT Ratio 0.7 Sodium (136-145) mmol/L Potassium (3.5-5.1) mmol/L Chloride (98-107) mmol/L Carbon Dioxide (21-32) mmol/L Anion Gap (3-11) BUN (7-18) mg/dl Creatinine (0.6-1.4) mg/dl Est Cr Clr Drug Dosing ml/min Est GFR ( Amer) Est GFR (Non-Af Amer) BUN/Creatinine Ratio (10-20) Glucose (70-99) mg/dl POC Glucose (70-99) mg/dl Calcium (8.5-10.1) mg/dl Magnesium (1.8-2.4) mg/dl Total Bilirubin (0.2-1) mg/dl AST (15-37) U/L ALT (12-78) U/L Alkaline Phosphatase (45-117) U/L Troponin I (0-0.045) ng/ml Total Protein (6.4-8.2) gm/dl Albumin (3.4-5.0) gm/dl Globulin (2.5-4.0) gm/dl Albumin/Globulin Ratio (0.9-2) Specimen Hemolysis Urine Color Urine Appearance (Clear) Urine pH (4.5-7.5) Ur Specific [employer] (1.000-1.030) Urine Protein (Negative) Urine Glucose (UA) (Negative) Urine Ketones (Negative) Urine Blood (Negative) Urine Nitrite (Negative) Urine Bilirubin (Negative) Urine Urobilinogen (Negative) Ur Leukocyte Esterase (Negative) Urine WBC (Auto) (0-5) /hpf Urine RBC (Auto) (0-4) /hpf U Hyaline Cast (Auto) (0-5) /lpf U Epithel Cells (Auto) (0-5) /lpf Urine Bacteria (Auto) (Negative) Urine Opiates Screen (Neg) Ur Methadone, Qual (Neg) Urine Barbiturates (Neg) Ur Phencyclidine (PCP) (Neg) U Amphetamin/Meth Scrn (Neg) MDMA (Ecstasy) Screen (Neg) U Benzodiazepines Scrn (Neg) Ur Cocaine Metabolite (Neg) U Marijuana (THC) Screen (Neg) Lyme Disease IgG Ab Positive A (Negative) Lyme Disease IgM Ab Negative (Negative) 03/06/20 03/06/20 03/06/20 Range/Units 11:22 11:22 11:28 WBC (4.8-10.8) K/uL RBC (4.7-6.1) M/uL Hgb (14.0-18.0) g/dL Hct (42-52) % MCV (80-100) fL MCH (25-34) pg MCHC (32-36) g/dL RDW Std Deviation (36.4-46.3) fL RDW Coeff of Ashley (11.5-14.5) % Plt Count (130-400) K/uL MPV (7.4-10.4) fL Immature Gran % (Auto) % Neut % (Auto) % Lymph % (Auto) % [place] % (Auto) % Eos % (Auto) % Baso % (Auto) % Neut # (Auto) (1.4-6.5) K/uL Lymph # (Auto) (1.2-3.4) K/uL [place] # (Auto) (0.11-0.59) K/uL Eos # (Auto) (0-0.5) K/uL Baso # (Auto) (0-0.2) K/uL Immature Gran # (Auto) (0.00-0.02) K/uL PT (9.0-12.0) Seconds INR (0.9-1.1) APTT (21.0-31.0) Seconds PTT Ratio Sodium 139 (136-145) mmol/L Potassium 4.5 (3.5-5.1) mmol/L Chloride 107 (98-107) mmol/L Carbon Dioxide 27 (21-32) mmol/L Anion Gap 5.0 (3-11) BUN 14 (7-18) mg/dl Creatinine 1.14 (0.6-1.4) mg/dl Est Cr Clr Drug Dosing 43.5 ml/min Est GFR ( Amer) 68.1 Est GFR (Non-Af Amer) 58.7 BUN/Creatinine Ratio 12.2 (10-20) Glucose 173 H (70-99) mg/dl POC Glucose 170 H (70-99) mg/dl Calcium 9.2 (8.5-10.1) mg/dl Magnesium 1.6 L (1.8-2.4) mg/dl Total Bilirubin 0.5 (0.2-1) mg/dl AST 24 (15-37) U/L ALT 24 (12-78) U/L Alkaline Phosphatase 71 (45-117) U/L Troponin I < 0.015 (0-0.045) ng/ml Total Protein 7.6 (6.4-8.2) gm/dl Albumin 3.5 (3.4-5.0) gm/dl Globulin 4.1 H (2.5-4.0) gm/dl Albumin/Globulin Ratio 0.9 (0.9-2) Specimen Hemolysis Urine Color Yellow Urine Appearance Clear (Clear) Urine pH 5.0 (4.5-7.5) Ur Specific [employer] 1.027 (1.000-1.030) Urine Protein Trace H (Negative) Urine Glucose (UA) 3+ H (Negative) Urine Ketones Trace H (Negative) Urine Blood Negative (Negative) Urine Nitrite Negative (Negative) Urine Bilirubin Negative (Negative) Urine Urobilinogen Negative (Negative) Ur Leukocyte Esterase Negative (Negative) Urine WBC (Auto) 1-5 (0-5) /hpf Urine RBC (Auto) 0-4 (0-4) /hpf U Hyaline Cast (Auto) 1-5 (0-5) /lpf U Epithel Cells (Auto) 0-5 (0-5) /lpf Urine Bacteria (Auto) Negative (Negative) Urine Opiates Screen (Neg) Ur Methadone, Qual (Neg) Urine Barbiturates (Neg) Ur Phencyclidine (PCP) (Neg) U Amphetamin/Meth Scrn (Neg) MDMA (Ecstasy) Screen (Neg) U Benzodiazepines Scrn (Neg) Ur Cocaine Metabolite (Neg) U Marijuana (THC) Screen (Neg) Lyme Disease IgG Ab (Negative) Lyme Disease IgM Ab (Negative) 03/06/20 Range/Units 12:35 WBC (4.8-10.8) K/uL RBC (4.7-6.1) M/uL Hgb (14.0-18.0) g/dL Hct (42-52) % MCV (80-100) fL MCH (25-34) pg MCHC (32-36) g/dL RDW Std Deviation (36.4-46.3) fL RDW Coeff of Ashley (11.5-14.5) % Plt Count (130-400) K/uL MPV (7.4-10.4) fL Immature Gran % (Auto) % Neut % (Auto) % Lymph % (Auto) % [place] % (Auto) % Eos % (Auto) % Baso % (Auto) % Neut # (Auto) (1.4-6.5) K/uL Lymph # (Auto) (1.2-3.4) K/uL [place] # (Auto) (0.11-0.59) K/uL Eos # (Auto) (0-0.5) K/uL Baso # (Auto) (0-0.2) K/uL Immature Gran # (Auto) (0.00-0.02) K/uL PT (9.0-12.0) Seconds INR (0.9-1.1) APTT (21.0-31.0) Seconds PTT Ratio Sodium (136-145) mmol/L Potassium (3.5-5.1) mmol/L Chloride (98-107) mmol/L Carbon Dioxide (21-32) mmol/L Anion Gap (3-11) BUN (7-18) mg/dl Creatinine (0.6-1.4) mg/dl Est Cr Clr Drug Dosing ml/min Est GFR ( Amer) Est GFR (Non-Af Amer) BUN/Creatinine Ratio (10-20) Glucose (70-99) mg/dl POC Glucose (70-99) mg/dl Calcium (8.5-10.1) mg/dl Magnesium (1.8-2.4) mg/dl Total Bilirubin (0.2-1) mg/dl AST (15-37) U/L ALT (12-78) U/L Alkaline Phosphatase (45-117) U/L Troponin I (0-0.045) ng/ml Total Protein (6.4-8.2) gm/dl Albumin (3.4-5.0) gm/dl Globulin (2.5-4.0) gm/dl Albumin/Globulin Ratio (0.9-2) Specimen Hemolysis Urine Color Urine Appearance (Clear) Urine pH (4.5-7.5) Ur Specific [employer] (1.000-1.030) Urine Protein (Negative) Urine Glucose (UA) (Negative) Urine Ketones (Negative) Urine Blood (Negative) Urine Nitrite (Negative) Urine Bilirubin (Negative) Urine Urobilinogen (Negative) Ur Leukocyte Esterase (Negative) Urine WBC (Auto) (0-5) /hpf Urine RBC (Auto) (0-4) /hpf U Hyaline Cast (Auto) (0-5) /lpf U Epithel Cells (Auto) (0-5) /lpf Urine Bacteria (Auto) (Negative) Urine Opiates Screen Pos H (Neg) Ur Methadone, Qual Neg (Neg) Urine Barbiturates Neg (Neg) Ur Phencyclidine (PCP) Neg (Neg) U Amphetamin/Meth Scrn Neg (Neg) MDMA (Ecstasy) Screen Neg (Neg) U Benzodiazepines Scrn Neg (Neg) Ur Cocaine Metabolite Neg (Neg) U Marijuana (THC) Screen Neg (Neg) Lyme Disease IgG Ab (Negative) Lyme Disease IgM Ab (Negative) Imaging Data Radiologist's Impression: [place], [place] [phone] CT Scan Report Patient: INDIO GEORGEAdmit Date: 03/06/20 MR#: [id number]: Aurelia ROBLES Acct ID:[id number]: [address] [facility] Zip: [place] [address] Age: 84Location: ED Sex: M Room/Bed: Att Phy:Diagnosis: SENT BY FOR CT HEAD CONFUSION, Maura Phy: Kori Clarke, MDService Date: 03/06/20 Fam Phy:Interpreting Phy: Art Platt MD Admit Phy: Ordering Phy: Mayco Hernandez MD cc: ~ CT SCAN OF THE BRAIN WITHOUT IV CONTRAST CLINICAL HISTORY: Strokelike symptoms. Change in mental status. COMPARISON STUDY: No priors. TECHNIQUE: Unenhanced axial CT scan of the brain is performed from the vertex to the skull base. A dose lowering technique was utilized adhering to the principles of ALARA. CT DOSE: 1101.86 mGy.cm FINDINGS: Brain parenchyma: There are age-related involutional changes noting mild to moderate subcortical and periventricular microangiopathic change. There is no hemorrhage, mass effect, or evidence of acute territorial ischemia by CT criteria. Logan-white matter differentiation is preserved. No extra-axial fluid collection is seen. Ventricles, sulci, cisterns: Prominent secondary to involutional change. Intracranial vasculature: There is atherosclerotic calcification of the cavernous carotid and vertebral arteries. Calvarium: Unremarkable. Sinuses and mastoids: Trace mucosal thickening is seen in the left maxillary antrum. The remaining visualized paranasal sinuses are clear. The mastoid air ce lls are well pneumatized. Orbits: The bony orbits are grossly intact. There are bilateral ocular lens implants. IMPRESSION: There is no hemorrhage, mass effect, or evidence of acute territorial ischemia by CT criteria. ACT 112: Negative or not required by law. Electronically signed by: Art Platt M.D. 03/06/2020 12:42 PM Dictated: 03/06/20 1239 Transcribed: 03/06/20 1239 [place], [place] [phone] CT Scan Report Patient: INDIO GEORGEAdmit Date: 03/06/20 MR#: [id number]: Aurelia ROBLES Acct ID:[id number]: [address] Date: 5City Zip: [place] [address] Age: 84Location: ED Sex: M Room/Bed: Att Phy:Diagnosis: SENT BY DR FOR CT HEAD CONFUSION, Maura Phy: Kori Clarke, MDService Date: 03/06/20 Fam Phy:Interpreting Phy: Ivan Garcia Admit Phy: Ordering Phy: Mayco Hernandez MD cc: ~ CT angio head w con CLINICAL HISTORY: 84 years-old Male with Stroke evaluation . Acute strokelike symptoms COMPARISON STUDY: Head CT of same day TECHNIQUE: Following the IV administration of 119 cc of Optiray 320, CT angiogram of the brain was performed from the skull base to the vertex. Images are reviewed in the axial, sagittal, and coronal planes. 3-D MIPS images are created and assessed. IV contrast was administered without complication. All measurements were obtained according to NASCET criteria. A dose lowering technique was utilized adhering to the principles of ALARA. FINDINGS: CT ANGIOGRAM OF THE BRAIN: The imaged bilateral internal carotid arteries are patent. Moderate calcified plaque of the cavernous and supraclinoid segments. The bilateral anterior and mi ddle cerebral arteries are also patent. The vertebrobasilar system and posterior cerebral arteries are patent with mild multifocal luminal narrowing of the posterior cerebral arteries. There is no aneurysm, high-grade stenosis, or proximal branch occlusion identified. Dural sinuses appear patent. Prior bilateral lens replacement. Age-related involutional changes. Minimal mucosal thickening of the maxillary sinuses and ethmoid air cells. IMPRESSION: Unremarkable CTA of the head without aneurysm, dissection, high- grade stenosis or proximal branch occlusion. ACT 112: Negative or not required by law. The above report was generated using voice recognition software. It may contain grammatical, syntax or spelling errors. Electronically signed by: Jasen Garcia M.D. 03/06/2020 12:43 PM Dictated: 03/06/20 1238 Transcribed: 03/06/20 1238 [facility], [place] [phone] CT Scan Report Patient: INDIO GEORGEAdmit Date: 03/06/20 MR#: [id number]: Aurelia ROBLES Acct ID:[id number]: [address] Date: 5City Zip: [place] [id number] Age: 84Location: ED Sex: M Room/Bed: Att Phy:Diagnosis: SENT BY DR FOR CT HEAD CONFUSION, Maura Phy: Kori Clarke, MDService Date: 03/06/20 Fam Phy:Interpreting Phy: Javi Hernandez MD Admit Phy: Ordering Phy: Mayco Hernandez MD cc: ~ NECK CTA HISTORY: Confusion. Stroke evaluation TECHNIQUE: Multiaxial CT images of the neck were performed following the intravenous administration of contrast to evaluate the major cervical vessels. Maximum intensity projection images were also obtained. All measurements were calculated based on NASCET criteria. A dose lowering technique was utilized adhering to the principles of ALARA. COMPARISON STUDY: None. FINDINGS: The aortic arch and proximal great vessels are widely patent. There is no significant stenosis, occlusion, or dissection identified within the bilateral common carotid or vertebral arteries. Left-sided pacemaker wires and poststernotomy changes are noted. There is a 4.1 cm left thyroid nodule. There is also a 1.7 cm substernal midline nodule which is also likely of thyroid origin. Mild calcified plaque at the aortic arch/proximal great vessels. Mild calcified plaque within the proximal bilateral internal carotid arteries. This results in up to 50% focal stenosis at the proximal left internal carotid artery and 20% stenosis of the proximal right internal carotid artery. IMPRESSION: 1. Mild calcified plaque within the bilateral carotid bifurcations. This results in 50% focal stenosis of the proximal left internal carotid artery and 20% stenosis of the proximal right and throughout carotid artery. 2. A 4.1 cm left thyroid nodule as well as a 1.7 cm substernal area nodule. ACT 112: Negative or not required by law. Electronically signed by: Javi Hernandez M.D. 03/06/2020 12:42 PM Dictated: 03/06/20 1236 Transcribed: 03/06/20 1236 [facility], [place] [phone] XRay Report Patient: INDIO GEORGEAdmit Date: 03/06/20 MR#: [id number]: [id number] Acct ID:[id number]: [address] [facility] Zip: [place] [address] Age: 84Location: ED Sex: M Room/Bed: Att Phy:Diagnosis: SENT BY DR FOR CT HEAD CONFUSION, Maura Phy: Kori Clarke MDService Date: 03/06/20 Fam Phy:Interpreting Phy: Ivan Garcia Admit Phy: Ordering Phy: Mayco Hernandez MD cc: ~ XR chest 1V portable HISTORY: 84 years-old Male Pt c/o AMS acutely altered mental status COMPARISON: CT abdomen pelvis 03/03/2020 TECHNIQUE: Portable AP view of the chest FINDINGS: Cardiomegaly. Prior median sternotomy. Left subclavian pacer. Minimal bibasilar atelectasis, left greater than right. No pneumothorax, large pleural effusion, overt pulmonary edema or airspace consolidation typical for pneumonia. Degenerative changes of the shoulders and spine. IMPRESSION: Cardiomegaly without acute process. ACT 112: Negative or not required by law. The above report was generated using voice recognition software. It may contain grammatical, syntax or spelling errors. Electronically signed by: Jasen Garcia M.D. 03/06/2020 11:59 AM Dictated: 03/06/20 1158 Transcribed: 03/06/20 1158 ECG Data Attestation: I personally reviewed and interpreted this ECG as follows: Indication: + SOB/dyspnea Rate (beats per minute): 62 Rhythm: + other (paced rhythm) ECG Intervals/blocks: + Normal QT-c (464) ECG Freedom: + Normal ECG ST segments: no ST depression and no ST elevation Comparison ECG Date: from (03/03/2020) Change: no significant change MDM Narrative Patient was seen and evaluated as above in room B9. Review was performed of nursing notes and vital signs. I did review pertinent previous visits and patient history. After obtaining a thorough history and physical examination the above work up was performed. This is an 84-year-old male who has a history of Lyme encephalopathy who presents emergency department agitated after several medication changes were made approximately 2 weeks ago. The patient has a diffuse rash on his body therefore was started on IV Rocephin and will be continued on doxycycline. Because the patient continues to be altered I did discuss the case with the hospitalist service who did agree to admit the patient. Patient family are in agreement with the treatment plan. An order was placed for continuous cardiac monitoring. The monitor shows a rate of 60 with paced rhythm. The patient was evaluated during the global COVID-19 pandemic, and that diagnosis was suspected/considered upon their initial presentation. Their evaluation, treatment and testing was consistent with current guidelines for patients who present with complaints or symptoms that may be related to COVID- 19. Impression & Plan Altered mental status, Rash, Pacemaker Discharge Plan Visit Data *Final* Discharge Date/Time: 03/06/20 14:52 Chief Complaint: Confusion Stated Complaint: SENT BY FOR CT HEAD CONFUSION, ED Provider: Mayco Hernandez Discharge Problem: Altered mental status, Rash, Pacemaker Patient Disposition: Admitted As Inpatient Discharge Instructions Interventions: ED Discharge Assessment Last Done: 03/06/20 14:52 Discharge Problem: Altered mental status Qualifiers: Altered mental status type: unspecified Qualified Code(s): R41.82 - Altered mental status, unspecified
--- NOTE | 2020-03-07 14:53 | Discharge Summary ---
Date of Service March 07, 2020 Admission HPI Per Admitting Provider Pt is 84 y/o M with PMH CAD s/p CABG, stent, PAF s/p watchman procedure in 2018 no longer on coumadin, h/o carotid artery stenosis with 70% stenosis of LICA with failed previous attempt at stent now on aspirin and Plavix, SSS s/p pacemaker, HTN, HLD, DM II, h/o thyroid nodule, COPD, anxiety, depression, insomnia, h/o bladder stimulator for urinary incontinence placed in 2004, inguinal hernia presented to ER with c/o altered mental status. History assistance from pt's daughter. Pt with reported increased anxiety and depression since staying at home with the current pandemic. on 02/13/2020 Zoloft and Trazodone were started and lorazepam was discontinued. Daughter is unsure if pt had any lorazepam left over but does believe pt hasn't take for at least two weeks until it was restarted by PCP on 03/01/2020 secondary to pt's increased anxiety and agitation. Reports only took zoloft for approx 2 weeks and stopped. Daughter reports PCP was unaware that pt had been taking lorazepam 1-2 tabs daily and reports has been on for 30 years. Pt also taking hydrocodone for lower abdominal pain from hernia and bladder stimulator. Pt to have upcoming appointment with urology as stimulator no longer working. Pt able to urinate. Did count his pills and he has only taken 8 hydrocodone pills in the last 6 days. Unsure if pt taking lorazepam and hydrocodone too close together. Reports past 2 weeks pt has been more agitated and accusing of having an affair and being very agitated with which is very unusual. Yesterday reports thought pt may have had some slurred speech but pt had no extremity weakness, no facial drooping. Daughter states noticed decline over past 2 weeks and hasn't been able to have full conversation with pt. Have been taking temperature regularly at home and no fevers reported. Denies cough, SOB, CP, N/V/D. Was unaware of any rash however when took pt's shirt off in ER today noticed a red rash to back and upper chest that was non-pruritic. H/O lyme disease in 2014 requiring hospitalization at [facility]. Denies any known recent tick bites or insect bites. Pt has been staying mostly indoors. Denies ill contacts. Denies SCHMITT, dizziness, syncope, vision changes, neck pain, CP, SOB, orthopnea, palpitations, cough, sore throat, choking, otalgia, rhinorrhea, paresthesias, weakness, extremity weakness, extremity edema, dysuria, hematuria. Admission Exam Per Admitting Provider General: no distress, WDWN Head: normocephalic, atraumatic Eyes: Very Hard of hearing, PERRL, EOM's intact, conjunctiva non-injected, anicteric ENT: normal inspection external ears, nose, mucous membranes moist Neck: supple, trachea midline Lungs: clear, no respiratory distress, no wheezing/rhonchi/rales CV: RRR, no murmur, no pretibial edema Abd: normal BS, soft, non-tender Ext: no cyanosis, no calf tenderness, able to move extremities, sensation to light touch intact Neuro: A&O to person, place, knows president, no focal deficits noted, normal affect Skin: warm, dry, faint pink macules to upper back, no significant rash to chest and no rash noted to extremities Principal Diagnosis PolyRx Discharge Exam See below Discharge Data Allergies Allergy/AdvReac Type Severity Reaction Status Date / Time isosorbide Allergy Severe GI SYMPTOMS Verified 03/06/20 12:28 IODINE CONTRAST Allergy Severe HIVES Uncoded 03/06/20 12:28 SULFA Allergy Severe RASH Uncoded 03/06/20 12:28 Consultations 03/06/20 13:38 ED Decision to Admit Stat 03/06/20 15:52 Consult Case Management - Discharge Planning Routine Ordered Studies 03/06/20 11:07 CT angio head w con Stat CT angio neck with con Stat CT head/brain wo con Stat Current Diagnoses Nontoxic single thyroid nodule (03/06/20) Type 2 diabetes mellitus without complications (03/06/20) Hypomagnesemia (03/06/20) Major depressive disorder, single episode, unspecified (03/06/20) Anxiety disorder, unspecified (03/06/20) Essential (primary) hypertension (03/06/20) Atherosclerotic heart disease of [place] coronary artery without angina pectoris (03/06/20) Paroxysmal atrial fibrillation (03/06/20) Sick sinus syndrome (03/06/20) Occlusion and stenosis of unspecified carotid artery (03/06/20) Chronic obstructive pulmonary disease, unspecified (03/06/20) Unspecified abdominal hernia without obstruction or gangrene (03/06/20) Rash and other nonspecific skin eruption (03/06/20) Unspecified urinary incontinence (03/06/20) Altered mental status, unspecified (03/06/20) Allergies isosorbide Allergy (Severe, Verified 03/06/20 12:28) GI SYMPTOMS IODINE CONTRAST Allergy (Severe, Uncoded 03/06/20 12:28) HIVES SULFA Allergy (Severe, Uncoded 03/06/20 12:28) RASH Height/Weight/Isolation Height 5 ft 6 in Weight 67.1 kg Chemistry 03/06/20 03/07/20 11:22 07:42 Sodium 139 137 Potassium 4.5 4.3 Chloride 107 103 Carbon Dioxide 27 26 Anion Gap 5.0 8.0 BUN 14 18 Creatinine 1.14 1.15 Glucose 173 H 151 H Urinalysis 03/06/20 11:22 Urine Color Yellow Urine Appearance Clear Urine pH 5.0 Ur Specific [place] 1.027 Urine Protein Trace H Urine Glucose (UA) 3+ H Urine Ketones Trace H Urine Blood Negative Urine Nitrite Negative Urine Bilirubin Negative Hospital Course (1) Altered mental status: Pt is 84 y/o M with PMH CAD s/p CABG, stent, PAF s/p watchman procedure in 2018 no longer on Coumadin, h/o carotid artery stenosis with 70% stenosis of LICA with failed previous attempt at stent now on aspirin and Plavix, SSS s/p pacemaker, HTN, HLD, DM II, h/o thyroid nodule, COPD, anxiety, depression, insomnia, h/o bladder stimulator for urinary incontinence placed in 2004, inguinal hernia presented to ER with c/o increased agitation and confusion x 2 weeks. 02/13/2020 Zoloft and Trazodone were started and lorazepam was discontinued. Reports only took Zoloft for approx 2 weeks and stopped. Lorazepam restarted by PCP on 03/01/2020 secondary to pt's increased anxiety and agitation. Pt also taking hydrocodone for lower abdominal pain from hernia and bladder stimulator. In ER pt afebrile, vitals stable. No leukocytosis, magnesium: 1.6, otherwise no significant electrolyte abnormality, UA not consistent with UTI CT HEAD: There is no hemorrhage, mass effect, or evidence of acute territorial ischemia by CT criteria. CTA HEAD: Unremarkable CTA of the head without aneurysm, dissection, high-grade stenosis or proximal branch occlusion. CTA NECK:1. Mild calcified plaque within the bilateral carotid bifurcations. This results in 50% focal stenosis of the proximal left internal carotid artery and 20% stenosis of the proximal right and throughout carotid artery. 2. A 4.1 cm left thyroid nodule as well as a 1.7 cm substernal area nodule. Thyrpoid nodules are being monitored CXR: Cardiomegaly without acute process. CT's head without acute finding of stroke. No focal deficits on exam. Will hold on MRI at this time as pt has pacemaker. Symptoms may be secondary to medication withdrawal of ativan, medication interaction with ativan, hydrocodone or new medication side effect. No signs of acute infection at this time In ER pt currently calm and cooperative and appears oriented Continue pt's ativan. Will continue hydrocodone prn with careful spacing to try to avoid ativan and hydrocodone being given similar times DC today- stets he's 100% better Meds likely cause of AMS (2) Hypomagnesemia: Magnesium: 1.6 In ER given magnesium 1GM IV (3) Rash: Pt with noted erythematous, non-pruritic rash to back and chest when in ER Pt with h/o Lyme disease in 2014 and had reported bulls-eye rash at that time Today in ER given Rocephin and doxycycline in case this was tick borne related rash At this time rash does not appear to be consistent with erythema migrans or consistent with other tick borne illnesses. Pt without any fevers, myalgias, arthralgias. No leukocytosis or leukopenia, no thrombopenia and normal LFTs Lyme IGG positive with Western blot pending. Anaplasmosis PCR pending Pt received solumedrol, benadryl, pepcid in ER for the contrast CT as has h/o hives with IVP dye and since rash has improved (4) Anxiety and depression: Recent med changes with d/c Ativan on 02/13/2020 (Unsure if pt had some remaining from prior prescription and was still taking, but fairly sure pt did not have any for approx 2 weeks). Was restarted 03/01/2020 secondary to increased anxiety and agitation Trazodone and Zoloft started on 02/13/2020. Took Zoloft for 2 weeks and self discontinued. Continue ativan prn, continue trazodone for now (5) Abdominal hernia: H/O inguinal hernia with lower abdominal pain. Following with general surgery. Consideration of hernia repair in the future Continue hydrocodone prn (6) CAD (coronary artery disease): S/P Stent and CABG No CP or SOB Continue aspirin, atorvastatin, metoprolol (7) SSS (sick sinus syndrome): S/P pacemaker Paced rhythm on EKG (8) Paroxysmal atrial fibrillation: s/p watchman procedure in 2018 no longer on Coumadin Continue metoprolol (9) Diabetes mellitus, type II: A1c: 6.8 on 02/14/2020 Hold metformin Novolog sliding scale per protocol (10) COPD (chronic obstructive pulmonary disease): No signs of exacerbation Continue home inhalers (11) HTN (hypertension): Stable Continue amlodipine, metoprolol (12) Carotid stenosis: h/o carotid artery stenosis with 70% stenosis of LICA with failed previous a ttempt at stent now on aspirin and Plavix Todays CTA neck: Mild calcified plaque within the bilateral carotid bifurcations. This results in 50% focal stenosis of the proximal left internal carotid artery and 20% stenosis of the proximal right and throughout carotid artery. Continue aspirin and Plavix (13) Thyroid nodule: Known thyroid nodule Today's CTA neck: 4.1 cm left thyroid nodule as well as a 1.7 cm substernal area nodule (14) Urinary incontinence: H/O urinary incontinence with bladder stimulator placed in 2004. Reported stimulator no longer working. Has upcoming appointment with urology in [place] next week -Pt is able to urinate DVT Prophylaxis -Lovenox SQ DNR/DNI as per discussion with pt Follows with Dr Joey Gutierrez for routine care ROS-No Headache, No Visual Changes, No Nausea, No Vomiting, No Fever, No Chills, No Neck Pain or Stiffness, No Chest Pain, No Palpitations, No SOB, No VALE, No Cough, No Sputum, No Wheezing, No Abdominal Pain, No Diarrhea, No Hematemesis, No Hemoptysis, No Unexpected Weight Loss, No Flank pain, No Melena, No Hematochezia, No Frequency, No Urgency, No Burning, No Hematuria, No Rashes, No Diaphoresis. Appetite is Normal Physical Exam Gen-AAO x 3, NAD, Afebrile Head-NCAT, EOMI, PERRLA, Anicteric Sclera, No Posterior Pharyngeal Erythema Neck-Supple, No JVD, No Thyromegaly, No Masses, No LAD, No Bruits Lungs-Clear to Auscultation Bilaterally, No Rales, No Rhonchi, No Wheezing, No Crepitus Chest-No S4, +S1, +S2, No S3, No Murmurs, No Rubs, No Gallops, No Ectopy Abdomen-Soft, Bowel Sounds Present, Non Tender, Non Distended, No Hepatomegaly, No Splenomegaly, No Palpable Masses, No Rebound, No Rigidity, No Guarding Musculoskeletal-Full Range of Motion Bilaterally, No CVAT Extremities-No Cyanosis, No Clubbing, No Edema Nuero-Cranial Nerves II-XII grossly intact, Motor WNL, DTRs WNL, Strength WNL, Non Focal Psych-Normal Mood Total Time Total Time Spent Total Time Spent (In Minutes): 45 mins Total Time Includes: Examination of the Patient, Discharge Planning, Medication Reconciliation and Communication With Other Providers Discharge Plan Discharge Items Patient Disposition: Home - Self-Care Reason For Visit: AMS Discharge Diagnosis: PolyRx Condition on Discharge: Good Health Concerns: taking anxiety meds close to pain meds Activity: Resume your previous activity Lifting: None and Gradually increase as tolerated Bathing: No limitations Sexual Activity: When tolerated Exercise/Sports: Rest today Driving/Machine Use: none Weightbearing: Full weightbearing Non-emergency contact: Primary Care Provider Call non-emergency contact if: you have any medication questions Follow-up/Referrals: Kori Clarke MD [Primary Care Provider] - Diet: Carb Consistent or DM2 Addtl Attending Provider Instructions: I Stopped Lorazepam in favor of Xanax (Alprazolam). Be careful when you take Alprazolam close to hydrocodone Pending Studies at Discharge: No Stand-Alone Forms: My [employer], Smoking Cessation Medications and DC Order Prescriptions: New alprazolam [Xanax] 0.25 mg tablet 0.25 mg PO BID PRN (Reason: anxiety) Qty: 30 RF: 0 Continued metformin 500 mg Tablet 500 mg PO BID RF: 0 atorvastatin 20 mg tablet 20 mg PO PM RF: 0 albuterol sulfate 2.5 mg /3 mL (0.083 %) Solution For Nebulization 2.5 mg INHALATION Q4H PRN (Reason: Shortness Of Breath Or Wheezing) RF: 0 hydrocodone-acetaminophen 5-325 mg tablet 1 tab PO Q8H PRN (Reason: Pain) RF: 0 clopidogrel 75 mg tablet 75 mg PO DAILY RF: 0 amlodipine 5 mg tablet 5 mg PO DAILY RF: 0 aspirin [Aspirin Low Dose] 81 mg Tablet,Delayed Release (Dr/Ec) 81 mg PO DAILY RF: 0 metoprolol tartrate 50 mg tablet 50 mg PO BID RF: 0 omeprazole 20 mg capsule,delayed release(DR/EC) 20 mg PO BID RF: 0 fluticasone propionate 50 mcg/actuation spray,suspension 2 spray INTRANASAL DAILY RF: 0 budesonide-formoterol [Symbicort] 80-4.5 mcg/actuation Hfa Aerosol Inhaler 2 puff INHALATION BID RF: 0 trazodone 50 mg tablet 50 mg PO DAILY RF: 0 Discontinued lorazepam 1 mg tablet 1 mg PO Q8H PRN (Reason: Anxiety) RF: 0 sertraline 25 mg tablet 25 mg PO DAILY RF: 0 Discharge Orders: Discharge Order (Routine); Ordered 03/07/20 Ordered By: Rafi Rodas Admission Data Admit Date/Time: 03/06/20 14:01 Attending Provider: Rafi Rodas Admit Provider: Rafi Rodas Primary Care Provider: Kori Clarke Other Providers: Rafi Rodas
[2020-03-09 23:59] LABS: Codeine Urine NEGATIVE ng/mL (<50); Hydrocodone Urine NEGATIVE ng/mL (<50); Hydromor Urine NEGATIVE ng/mL (<50); Morphine Urine NEGATIVE ng/mL (<50); Norhydrocodone Conf Ur 90 ng/mL (<50); Noroxycodone Urine NEGATIVE ng/mL (<50); Oxycodone Urine NEGATIVE ng/mL (<50); Oxymorph Urine NEGATIVE ng/mL (<50)
[2020-03-11 18:33] LABS: 18KDIGG Band REACTIVE; 23KDIGG Band REACTIVE; 23KDIGM Band NON-REACTIVE; 28KDIGG Band REACTIVE; 30KDIGG Band NON-REACTIVE; 39KDIGG Band NON-REACTIVE; 39KDIGM Band NON-REACTIVE; 41KDIGG Band REACTIVE; 41KDIGM Band NON-REACTIVE; 45KDIGG Band NON-REACTIVE; 58KDIGG Band NON-REACTIVE; 66KDIGG Band NON-REACTIVE; 93KDIGG Band REACTIVE; Lyme Antibodies, WB IgG POSITIVE (NEGATIVE); Lyme Antibodies, WB IgM NEGATIVE (NEGATIVE)
[2020-03-11 20:39] LABS: Ehrlichia chaff IgG Ab <1:64 (<1:64); Ehrlichia chaff IgM Ab <1:20 (<1:20)
== END 2020-03-07 17:20 | disposition home health service (06) ==
LOC: 2N 10:40 → ED 10:40 → 2N 14:52

== ENCOUNTER 2021-08-27 16:31 | Observation (INO) ==
--- NOTE | 2021-08-27 16:38 | Emergency Department Note ---
Impression & Plan COVID-19, Leukopenia, Weakness, Acute confusion, Pneumonitis ED Provider Note NAME: INDIO GEORGE AGE: 86 SEX: M : 1935 ARRIVES VIA: Ambulance INFORMANT: Patient, ED PROVIDER(S): Robbie Moses MD Chief Complaint: Confusion, decreased responsiveness HPI: Does present from [facility] where he resides with his where reportedly the family had noted that the patient was more confused and slow to respond upon awakening this morning. Last known well last night. No reported trauma or falls. BSG was in the 100s prior to arrival. Patient denies any head pain cough or fever. The patient does have some upper abdominal pain which he states has been there is since before yesterday but is unsure as to the true onset. Patient denies any numbness tingling or focal weakness. The patient has no neck pain. Patient denies any vomiting or diarrhea. The patient states he has had a UTI before but does not believe that he has had similar symptoms. ROS: See HPI for pertinent positives and negatives. A total of 10 systems were reviewed and otherwise negative. Past medical history: See below Surgical history: See below Social history: See below Physical Exam: GENERAL: NAD, wearing glasses, wearing a mask, non-toxic. EYE EXAM: Normal conjunctiva. PERRL, no anisocoria and EOM's grossly intact w/o pain. NECK: Supple, no nuchal rigidity, no adenopathy, non-tender. No signs of meningismus. FROM of the neck with good chin to chest and neck extension. No stridor. LUNGS: Clear to auscultation. Normal chest wall mechanics. HEART: NSR, no MRG. ABDOMEN: Abdomen soft, non-tender, normo-active bowel sounds, no masses, no rebound or guarding. BACK: No CVA TTP. SKIN: No rashes and no bruising. UPPER EXTREMITIES: Upper extremities are grossly normal. LOWER EXTREMITIES: Grossly normal, no edema. NEURO EXAM: Awake and alert, oriented to person but not to year, follows commands, cranial nerves II-XII grossly intact, slow deliberate speech but without obvious dysarthria, moves all 4 extremities on command w/o issue. Good finger to nose, no drift, no sensory deficits. Differential diagnoses: Infection, dehydration, metabolic abnormality, hypo/hyperglycemia, electrolyte disturbance, anemia, hypoxia, cardiac sources, intracerebral event, toxicologic, neurologic, as well as other pathologies. Course: Patient was seen and evaluated the bedside. Full history physical exam was performed. EKG interpreted by me Imaging Studies: See Below Cardiac monitoring: An order was placed for continuous cardiac monitoring. The monitor shows a rate of 65 with paced rhythm. MDM: Patient was seen due to concern for decreased responsiveness and intermittent confusion. Blood work is obtained along with COVID and the patient did have a CT abdomen pelvis and CT of the head completed along with chest x-ray. Patient has mild leukopenia and mild anemia with a hemoglobin 11.7 and normal platelet count. The patient's kidney function is unremarkable. Mild hyponatremia at 134. Magnesium slightly low at 1.6. Patient's urinalysis does not show obvious infection. Patient is COVID-positive. Chest x-ray shows cardiomegaly with interstitial coarsening which may represent atelectasis versus pneumonitis. This may be consistent with the patient's viral COVID illness. CT of the head is negative. CT abdomen pelvis does show again possible pneumonitis. There is no bowel obstruction. Patient does have a left inguinal hernia but without obstruction. No other acute findings noted. Given the patient's confusion and COVID illness I do not think it reasonable to send the patient back to his [facility] as this was the initial reason for the patient's presentation. I did speak with the [facility] hospitalist Dr. Lopez and the patient was to be admitted to the medicine service. I was informed by the unit clerk that the patient's daughter wanted to speak with a physician. I subsequently did speak with the daughter who is the power of trademark attorney. She cannot believe that the patient has COVID as the patient has been by himself with his in his apartment. She wants to know the treatment plan. I stated that the patient did not have an oxygen requirement but that he would be continued on his medications. She was concerned about dehydration and nausea. I stated that fluids and nausea medication could be ordered. The daughter believes that COVID is a conspiracy and stated that she will stay in the hospital regardless of where the patient goes. I tried to explain to the daughter that there were visitor hours and that she could be with him provided he was still in the emergency department but may not be allowed visitation except during certain hours during the day as this was hospital policy. Patient further stated that she thought that this was all "bullshit we have all been going through for the last 2 years." She further was concerned about the patient receiving a rapid test and I stated that initially he received this for confusion and generalized weakness. He had not complained of any upper respiratory symptoms. She stated that she she knows that these are not a good tests. The daughter then stated, "So you're telling me that my mother has COVI D." I stated that I was not insinuating this, and that I do not know the current COVID status of her mother as she was not a patient here. I did speak with the patient's son Santiago in [place] who also stated that he was very "anti- COVID." They wanted to make sure that he did not receive any Regeneron. They are comfortable with him potentially staying for further treatment with IV fluids, antiemetics and monitoring. I did suggest that the patient may benefit from PT and OT if possible. Past Med/Surg History Medical History Anemia HX Anxiety and depression Bronchiectasis MONITORED BY PULM CAD (coronary artery disease) S/p 3 vessel CABG in 1985; s/p two stents - most recent stent 2009 Carotid stenosis On ASA and Plavix- follows with cardio- stable COPD (chronic obstructive pulmonary disease) WELL CONTROLLED, USUALLY WORSE IN WINTER Diabetes mellitus, type II NIDDM DVT (deep venous thrombosis) OVER 10 YRS AGO > FROM AN INJURY > RIGHT LEG GERD (gastroesophageal reflux disease) Hard of hearing GIVING HX HLD (hyperlipidemia) HTN (hypertension) Insomnia Ischemic cardiomyopathy EF previous 30%- did improve to 50% Kidney stones HX AND ALSO HAS SOME CURRENTLY Pacemaker PLACED 2010 SECONDARY TO SSS. LAST CHECKED LAST WEEK AT HOSPITAL PER PT. > [facility] Paroxysmal atrial fibrillation WATCHMAN PUT IN FOR THIS IN 2018 NO CARDIOVERSIONS> NO AC NEEDED Presence of Watchman left atrial appendage closure device 2018> [facility] > DR. CANTU Thyroid nodule Urinary frequency BLADDER STIMULATOR TO BE REPLACED WITHIN NEXT MONTH Surgical History Abdominal hernia WITH REPAIR H/O inguinal hernia repair X2 History of bladder surgery Has bladder stimulator, PLACED 8 YRS AGO> FOLLOWS A DR ANA FRANCO FOR THIS, History of cardiac cath X2, SEE STENT INFO History of cataract surgery BILAT History of colonoscopy History of esophagogastroduodenoscopy (EGD) History of heart artery stent 2 STENTS > LAST ONE OVER 10 YRS AGO History of lithotripsy History of prostate surgery IS UNSURE OF WHAT EXACTLY WAS DONE> YEARS AGO History of tonsillectomy History of tooth extraction Hx of CABG 1985 TRIPLE> FOLLOWS DR. 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 Beliefs That Will Affect Care: None Current Living Situation: Spouse Current Living Situation Comment: [facility] current occupational status: retired Feels Safe at Home: Yes Assistive Devices: Glasses, Hearing Aid - Bilateral and Walker Allergies Allergies Allergy/AdvReac Type Severity Reaction Status Date / Time isosorbide Allergy Severe GI SYMPTOMS Verified 08/27/21 17:48 sertraline [From Zoloft] Allergy Unknown Verified 08/27/21 17:48 IODINE CONTRAST Allergy Severe HIVES Uncoded 08/27/21 17:48 SULFA Allergy Severe RASH Uncoded 08/27/21 17:48 Home Meds Home Medications Medication Instructions Recorded Confirmed albuterol sulfate 2.5 mg INHALATION DIRECTED PRN 03/03/20 08/27/21 amlodipine 5 mg tablet 5 mg PO QAM 03/03/20 08/27/21 atorvastatin 20 mg tablet 20 mg PO PM 03/03/20 08/27/21 clopidogrel 75 mg tablet 75 mg PO QAM 03/03/20 08/27/21 hydrocodone 5 mg-acetaminophen 325 1 tab PO Q8H PRN 03/03/20 08/27/21 mg tablet metformin 500 mg tablet 1,000 mg PO BID 03/03/20 08/27/21 metoprolol tartrate 50 mg tablet 50 mg PO BID 03/03/20 08/27/21 omeprazole 20 mg capsule,delayed 20 mg PO BID 03/03/20 08/27/21 release ascorbic acid (vitamin C) 500 mg 500 mg PO DAILY 08/27/21 08/27/21 tablet (Vitamin C) aspirin 81 mg tablet,delayed 81 mg PO DAILY 08/27/21 08/27/21 release fluticasone furoate 200 1 ea INHALATION DAILY 08/27/21 08/27/21 mcg-vilanterol 25 mcg/dose inhalation powder (Breo Ellipta) lorazepam 1 mg tablet 1 mg PO Q8 PRN 08/27/21 08/27/21 Results & Data (ED) Vital Signs Vital Signs - 24 hr 08/27/21 16:42 08/27/21 16:56 08/27/21 17:00 Temperature 37 C Temperature Source Oral Pulse Rate 74 72 Pulse Rate [Apical] Pulse Rate from SpO2 Sensor Respiratory Rate 18 21 Respiratory Effort / Characteristics Non-Labored Respiratory Depth Normal Blood Pressure 144/74 H 153/71 H Blood Pressure [Right Arm] Blood Pressure Mean 97 98 Blood Pressure Mean [Right Arm] Pulse Oximetry 96 95 Oxygen Delivery Method Room Air Room Air Sepsis Recent Fever Within 48 Hours No Sepsis New/Unexplained Change in Mental Status No Sepsis Action Taken by Nursing No Action Required 08/27/21 17:27 08/27/21 17:30 08/27/21 18:00 Temperature Temperature Source Pulse Rate 70 69 Pulse Rate [Apical] Pulse Rate from SpO2 Sensor 70 Respiratory Rate 25 H 16 Respiratory Effort / Characteristics Respiratory Depth Blood Pressure 115/65 Blood Pressure [Right Arm] Blood Pressure Mean 81 Blood Pressure Mean [Right Arm] Pulse Oximetry 94 Oxygen Delivery Method Room Air Room Air Sepsis Recent Fever Within 48 Hours Sepsis New/Unexplained Change in Mental Status Sepsis Action Taken by Nursing 08/27/21 18:30 08/27/21 19:00 08/27/21 20:00 Temperature Temperature Source Pulse Rate 76 68 Pulse Rate [Apical] 73 Pulse Rate from SpO2 Sensor 73 64 Respiratory Rate 23 22 18 Respiratory Effort / Characteristics Respiratory Depth Blood Pressure 136/70 Blood Pressure [Right Arm] 144/73 H Blood Pressure Mean 92 Blood Pressure Mean [Right Arm] 96 Pulse Oximetry 96 97 95 Oxygen Delivery Method Room Air Room Air Room Air Sepsis Recent Fever Within 48 Hours Sepsis New/Unexplained Change in Mental Status Sepsis Action Taken by Assisted Medications Current Medication List: was personally reviewed by me Laboratory Data Attestation: I reviewed the patient's lab results. Result diagrams: 08/27/21 17:12 08/27/21 17:12 Lab Results 08/27/21 08/27/21 08/27/21 Range/Units 17:12 17:12 17:12 WBC 4.32 L (4.8-10.8) K/uL RBC 3.92 L (4.7-6.1) M/uL Hgb 11.7 L (14.0-18.0) g/dL Hct 35.5 L (42-52) % MCV 90.6 (80-100) fL MCH 29.8 (25-34) pg MCHC 33.0 (32-36) g/dL RDW Std Deviation 44.2 (36.4-46.3) fL RDW Coeff of Ashley 13.4 (11.5-14.5) % Plt Count 159 (130-400) K/uL MPV 10.3 (7.4-10.4) fL Immature Gran % (Auto) 0.0 % Neut % (Auto) 67.1 % Lymph % (Auto) 19.9 % Webster % (Auto) 12.5 % Eos % (Auto) 0.5 % Baso % (Auto) 0.0 % Neut # (Auto) 2.90 (1.4-6.5) K/uL Lymph # (Auto) 0.86 L (1.2-3.4) K/uL Webster # (Auto) 0.54 (0.11-0.59) K/uL Eos # (Auto) 0.02 (0-0.5) K/uL Baso # (Auto) 0.00 (0-0.2) K/uL Immature Gran # (Auto) 0.00 (0.00-0.02) K/uL Sodium 134 L (136-145) mmol/L Potassium 4.0 (3.5-5.1) mmol/L Chloride 100 (98-107) mmol/L Carbon Dioxide 21 (21-32) mmol/L Anion Gap 13 H (3-11) BUN 17 (6-23) mg/dl Creatinine 1.12 (0.6-1.4) mg/dl Est Cr Clr Drug Dosing 43.9 ml/min Est GFR ( Amer) 68.6 ml/min Est GFR (Non-Af Amer) 59.2 ml/min BUN/Creatinine Ratio 15.2 (10-20) Glucose 116 H (70-99) mg/dl Calcium 9.0 (8.5-10.1) mg/dl Magnesium (1.7-2.4) mg/dl Total Bilirubin 0.5 (0.2-1.0) mg/dl AST 26 (13-39) U/L ALT 16 (7-52) U/L Alkaline Phosphatase 57 (34-104) U/L Troponin I 0.03 (0-0.04) ng/ml Total Protein 7.2 (6.0-8.3) gm/dl Albumin 4.2 (3.4-5.0) gm/dl Globulin 3.0 (2.5-4.0) gm/dl Albumin/Globulin Ratio 1.4 (0.9-2) TSH 1.396 (0.300-4.500) uIu/ml Urine Color Urine Appearance (Clear) Urine pH (4.5-7.5) Ur Specific [place] (1.000-1.030) Urine Protein (Negative) Urine Glucose (UA) (Negative) Urine Ketones (Negative) Urine Blood (Negative) Urine Nitrite (Negative) Urine Bilirubin (Negative) Urine Urobilinogen (Negative) Ur Leukocyte Esterase (Negative) Urine WBC (Auto) (0-5) /hpf Urine RBC (Auto) (0-4) /hpf U Hyaline Cast (Auto) (0-5) /lpf U Epithel Cells (Auto) (0-5) /lpf Urine Bacteria (Auto) (Negative) SARS-CoV-2, RNA, NAAT (NEGATIVE) 08/27/21 08/27/21 08/27/21 Range/Units 17:12 17:12 17:31 WBC (4.8-10.8) K/uL RBC (4.7-6.1) M/uL Hgb (14.0-18.0) g/dL Hct (42-52) % MCV (80-100) fL MCH (25-34) pg MCHC (32-36) g/dL RDW Std Deviation (36.4-46.3) fL RDW Coeff of Ashley (11.5-14.5) % Plt Count (130-400) K/uL MPV (7.4-10.4) fL Immature Gran % (Auto) % Neut % (Auto) % Lymph % (Auto) % Webster % (Auto) % Eos % (Auto) % Baso % (Auto) % Neut # (Auto) (1.4-6.5) K/uL Lymph # (Auto) (1.2-3.4) K/uL Webster # (Auto) (0.11-0.59) K/uL Eos # (Auto) (0-0.5) K/uL Baso # (Auto) (0-0.2) K/uL Immature Gran # (Auto) (0.00-0.02) K/uL Sodium (136-145) mmol/L Potassium (3.5-5.1) mmol/L Chloride (98-107) mmol/L Carbon Dioxide (21-32) mmol/L Anion Gap (3-11) BUN (6-23) mg/dl Creatinine (0.6-1.4) mg/dl Est Cr Clr Drug Dosing ml/min Est GFR ( Amer) ml/min Est GFR (Non-Af Amer) ml/min BUN/Creatinine Ratio (10-20) Glucose (70-99) mg/dl Calcium (8.5-10.1) mg/dl Magnesium 1.6 L (1.7-2.4) mg/dl Total Bilirubin (0.2-1.0) mg/dl AST (13-39) U/L ALT (7-52) U/L Alkaline Phosphatase (34-104) U/L Troponin I (0-0.04) ng/ml Total Protein (6.0-8.3) gm/dl Albumin (3.4-5.0) gm/dl Globulin (2.5-4.0) gm/dl Albumin/Globulin Ratio (0.9-2) TSH (0.300-4.500) uIu/ml Urine Color Yellow Urine Appearance Clear (Clear) Urine pH 5.0 (4.5-7.5) Ur Specific [place] 1.010 (1.000-1.030) Urine Protein Trace H (Negative) Urine Glucose (UA) Negative (Negative) Urine Ketones 1+ H (Negative) Urine Blood Negative (Negative) Urine Nitrite Negative (Negative) Urine Bilirubin Negative (Negative) Urine Urobilinogen Negative (Negative) Ur Leukocyte Esterase Negative (Negative) Urine WBC (Auto) 0 (0-5) /hpf Urine RBC (Auto) 0-4 (0-4) /hpf U Hyaline Cast (Auto) 5-10 H (0-5) /lpf U Epithel Cells (Auto) 5-10 H (0-5) /lpf Urine Bacteria (Auto) Negative (Negative) SARS-CoV-2, RNA, NAAT POSITIVE A* (NEGATIVE) Administered Medications Sodium Chloride (Nss 1000ml) 1,000 mls @ 75 mls/hr IV .[id number] ONE Stop: 08/28/21 09:39 Last Admin: 08/27/21 20:51 Dose: 75 mls/hr Documented by: [id number] Discontinued Medications Sodium Chloride (Nss 1000ml) 500 mls @ 999 mls/hr IV .[id number] ONE Stop: 08/27/21 21:13 Last Infusion: 08/27/21 21:36 Dose: 0 mls/hr Documented by: [id number] Admin: 08/27/21 20:51 Dose: 999 mls/hr Documented by: [id number] Ondansetron HCl (Ondansetron Inj 2 Mg/Ml 2 Ml Vial) 4 mg IV NOW STA Stop: 08/27/21 20:44 Last Admin: 08/27/21 20:51 Dose: 4 mg Documented by: [id number] Imaging Data Radiologist's Impression: Abdomen/Pelvis CT 08/27/21 16:[address] WITHOUT CONTRAST HISTORY: Acute upper abdominal pain. COVID Positive. upper ab pain TECHNIQUE: Multiaxial CT images of the abdomen and pelvis were performed without contrast. A dose lowering technique was utilized adhering to the principles of ALARA. COMPARISON STUDY: CT abdomen and pelvis 03/03/2020 FINDINGS: Prior median sternotomy. Moderate cardiomegaly with partially imaged pacer leads. Mild bibasilar groundglass densities. Limited study secondary to upper Ailyn positioning and lack of contrast. No pneumatosis or pneumoperitoneum. The unenhanced spleen, mildly atrophic pancreas, gallbladder and adrenal glands are unremarkable. Liver also appears to be within normal limits. Mild nonspecific bilateral perinephric stranding. There are a few punctate nonobstructing calculi noted within the bilateral kidneys. No ureteral calculi or hydronephrosis. Mild prostamegaly. Possible TURP defect within the central pr ostate. Mild nonspecific urinary bladder wall thickening. Atherosclerosis of the aorta with mild infrarenal ectasia measuring 2 cm. Small left inguinal hernia redemonstrated containing fat and trace fluid with adjacent surgical clips. No bowel obstruction or bowel wall thickening. Colonic diverticulosis without acute diverticulitis. Normal appendix. Unremarkable soft tissues. Degenerative changes of the spine, pelvis and hips. Chronic bilateral L5 pars defects. No acute fracture identified. IMPRESSION: 1. Bibasilar groundglass densities represent atelectasis versus a nonspecific infectious or inflammatory pneumonitis. 2. No bowel obstruction or bowel wall thickening. 3. Colonic diverticulosis. 4. Unchanged small fat and fluid filled left inguinal hernia. 5. Punctate nonobstructing nephrolithiasis. No ureteral calculi or hydronephrosis. 6. Additional findings as above. ACT 112: Negative or not required by law. The above report was generated using voice recognition software. It may contain grammatical, syntax or spelling errors. Electronically signed by: Ivan Garcia M.D. 08/27/2021 6:[address] 08/27/21 16:46 CT head/brain wo con CLINICAL HISTORY: 86 years-old Male with confusion. Acutely altered mental sta tus TECHNIQUE: Multiple axial CT images of the head were obtained without contrast. A dose lowering technique was utilized adhering to the principles of ALARA. CT DOSE: 939.49 mGy.cm COMPARISON: Head CT 03/06/2020 FINDINGS: No acute intracranial hemorrhage, midline shift, intracranial mass, hydrocephalus, territorial ischemia or abnormal extra-axial collection. Age- related involutional changes. White matter hypodensities suggest chronic microvascular ischemic disease. Cerebral vascular calcifications. The calvarium is intact. Mastoid air cells are clear. Mild polypoid mucosal thickening of the maxillary sinuses with moderate to severe mucosal thickening of the ethmoid air cells. Moderate because of thickening of the nasal turbina jad. Rightward bowing and spurring the nasal septum. Prior bilateral lens repair. IMPRESSION: No acute intracranial abnormality. ACT 112: Negative or not required by law. The above report was generated using voice recognition software. It may contain grammatical, syntax or spelling errors. Electronically signed by: Ivan Garcia M.D. 08/27/2021 6:22 PM Chest X-Ray 08/27/21 16:47 XR chest 1V portable HISTORY: 86 years-old Male weakness acute weakness COMPARISON: Chest radiograph 03/06/2020 TECHNIQUE: Portable AP view of the chest FINDINGS: Cardiac silhouette is enlarged. Prior median sternotomy. Left subclavian pacer. No pneumothorax or lobar airspace consolidation. Blunting of the lateral costophrenic angles. Mild interstitial coarsening of the mid to lower lung zones. Degenerative changes of the shoulders and spine. IMPRESSION: Cardiomegaly with mild mid to lower lung zone interstitial coarsening. This may represent atelectasis versus a nonspecific pneumonitis. ACT 112: Negative or not required by law. The above report was generated using voice recognition software. It may contain grammatical, syntax or spelling errors. Electronically signed by: Ivan Garcia M.D. 08/27/2021 5:23 PM Discharge Plan Visit Data Chief Complaint: Altered Mental Status ED Provider: Robbie Moses Discharge Problem: COVID-19, Leukopenia, Weakness, Acute confusion, Pneumonitis Patient Disposition: Admitted As Inpatient Forms Stand Alone Forms: [facility] Prescriptions Prescriptions: No Action metformin 500 mg Tablet 1,000 mg PO BID RF: 0 atorvastatin 20 mg tablet 20 mg PO PM RF: 0 albuterol sulfate 2.5 mg /3 mL (0.083 %) Solution For Nebulization 2.5 mg INHALATION DIRECTED PRN (Reason: Shortness Of Breath Or Wheezing) RF: 0 hydrocodone-acetaminophen 5-325 mg tablet 1 tab PO Q8H PRN (Reason: Pain) RF: 0 clopidogrel 75 mg tablet 75 mg PO QAM RF: 0 amlodipine 5 mg tablet 5 mg PO QAM RF: 0 metoprolol tartrate 50 mg tablet 50 mg PO BID RF: 0 omeprazole 20 mg capsule,delayed release(DR/EC) 20 mg PO BID RF: 0 aspirin 81 mg tablet,delayed release (DR/EC) 81 mg PO DAILY RF: 0 ascorbic acid (vitamin C) [Vitamin C] 500 mg Tablet 500 mg PO DAILY RF: 0 lorazepam 1 mg tablet 1 mg PO Q8 PRN (Reason: Anxiety) RF: 0 Breo Ellipta 200-25 mcg/dose blister with device 1 ea INHALATION DAILY RF: 0 Referrals Referrals: Kori Clarke MD [Primary Care Provider] -
[2021-08-27 17:24] LABS: Eosinophils # (auto) 0.02 K/uL (0-0.5); Eosinophils % (auto) 0.5 %; Hematocrit (blood only) 35.5 % (42-52); Hemoglobin 11.7 g/dL (14.0-18.0); Lymphocytes # (auto) 0.86 K/uL (1.2-3.4); Lymphocytes % (auto) 19.9 %; Mean Corpuscular Hemoglobin 29.8 pg (25-34); Mean Corpuscular Volume 90.6 fL (80-100); Mean Platelet Volume 10.3 fL (7.4-10.4); Monocytes # (auto) 0.54 K/uL (0.11-0.59); Monocytes % (auto) 12.5 %; Neutrophils % (auto) 67.1 %; Platelet Count 159 K/uL (130-400); RDW Coefficient of Variation 13.4 % (11.5-14.5); RDW Standard Deviation 44.2 fL (36.4-46.3); Red Blood Count 3.92 M/uL (4.7-6.1); White Blood Count 4.32 K/uL (4.8-10.8)
--- NOTE | 2021-08-27 17:24 | XRay Report ---
XR chest 1V portable HISTORY: 86 years-old Male weakness acute weakness COMPARISON: Chest radiograph 03/06/2020 TECHNIQUE: Portable AP view of the chest FINDINGS: Cardiac silhouette is enlarged. Prior median sternotomy. Left subclavian pacer. No pneumothorax or lo bar airspace consolidation. Blunting of the lateral costophrenic angles. Mild interstitial coarsening of the mid to lower lung zones. Degenerative changes of the shoulders and spine. IMPRESSION: Cardiomegaly with mild mid to lower lung zone interstitial coarsening. This may represent atelectasis versus a nonspecific pneumonitis. ACT 112: Negative or not required by law. The above report was generated using voice recognition software. It may contain grammatical, syntax o r spelling errors. Electronically signed by: Ivan Garcia M.D. 08/27/2021 5:23 PM
[2021-08-27 17:31] LABS: Appearance Urine Clear (Clear); Bacteria Urine Automated Negative (Negative); Bilirubin Urine Negative (Negative); Blood Urine Negative (Negative); Color Urine Yellow; Glucose Urine UA Negative (Negative); Ketones Urine 1+ (Negative); Leukocyte Esterase Urine Negative (Negative); Nitrite Urine Negative (Negative); Protein Urine Trace (Negative); RBC Urine Automated 0-4 /hpf (0-4); Urobilinogen Urine Negative (Negative); WBC Urine Automated 0 /hpf (0-5)
--- NOTE | 2021-08-27 18:24 | CT Scan Report ---
CT head/brain wo con CLINICAL HISTORY: 86 years-old Male with confusion. Acutely altered mental status TECHNIQUE: Multiple axial CT images of the head were obtained without contrast. A dose lowering tech nique was utilized adhering to the principles of ALARA. CT DOSE: 939.49 mGy.cm COMPARISON: Head CT 03/06/2020 FINDINGS: No acute intracranial hemorrhage, midline shift, intracranial mass, hydrocephalus, territorial ischem ia or abnormal extra-axial collection. Age-related involutional changes. White matter hypodensities s uggest chronic microvascular ischemic disease. Cerebral vascular calcifications. The calvarium is intact. Mastoid air cells are clear. Mild polypoid mucosal thickening of the maxill yara sinuses with moderate to severe mucosal thickening of the ethmoid air cells. Moderate because of thickening of the nasal turbinates. Rightward bowing and spurring the nasal septum. Prior bilateral l ens repair. IMPRESSION: No acute intracranial abnormality. ACT 112: Negative or not required by law. The above report was generated using voice recognition software. It may contain grammatical, syntax o r spelling errors. Electronically signed by: Ivan Garcia M.D. 08/27/2021 6:22 PM
--- NOTE | 2021-08-27 18:46 | CT Scan Report ---
ABDOMEN AND PELVIS CT WITHOUT CONTRAST HISTORY: Acute upper abdominal pain. COVID Positive. upper ab pain TECHNIQUE: Multiaxial CT images of the abdomen and pelvis were performed without contrast. A dose lo wering technique was utilized adhering to the principles of ALARA. COMPARISON STUDY: CT abdomen and pelvis 03/03/2020 FINDINGS: Prior median sternotomy. Moderate cardiomegaly with partially imaged pacer leads. Mild biba silar groundglass densities. Limited study secondary to upper Ailyn positioning and lack of contras t. No pneumatosis or pneumoperitoneum. The unenhanced spleen, mildly atrophic pancreas, gallbladder a nd adrenal glands are unremarkable. Liver also appears to be within normal limits. Mild nonspecific bilateral perinephric stranding. There are a few punctate nonobstructing calculi not ed within the bilateral kidneys. No ureteral calculi or hydronephrosis. Mild prostamegaly. Possible T URP defect within the central prostate. Mild nonspecific urinary bladder wall thickening. Atheroscler osis of the aorta with mild infrarenal ectasia measuring 2 cm. Small left inguinal hernia redemonstra gage containing fat and trace fluid with adjacent surgical clips. No bowel obstruction or bowel wall thickening. Colonic diverticulosis without acute diverticulitis. N ormal appendix. Unremarkable soft tissues. Degenerative changes of the spine, pelvis and hips. Chroni c bilateral L5 pars defects. No acute fracture identified. IMPRESSION: 1. Bibasilar groundglass densities represent atelectasis versus a nonspecific infectious or inflammat ory pneumonitis. 2. No bowel obstruction or bowel wall thickening. 3. Colonic diverticulosis. 4. Unchanged small fat and fluid filled left inguinal hernia. 5. Punctate nonobstructing nephrolithiasis. No ureteral calculi or hydronephrosis. 6. Additional findings as above. ACT 112: Negative or not required by law. The above report was generated using voice recognition software. It may contain grammatical, syntax o r spelling errors. Electronically signed by: Ivan Garcia M.D. 08/27/2021 6:44 PM
[2021-08-27 19:07] LABS: Troponin I 0.03 ng/ml (0-0.04)
[2021-08-27 20:00] LABS: Albumin Level 4.2 gm/dl (3.4-5.0); Bilirubin,Total 0.5 mg/dl (0.2-1.0)
[2021-08-27 20:06] LABS: Albumin Globulin Ratio 1.4 (0.9-2); BUN Creatinine Ratio 15.2 (10-20); Creatinine Clr Calc Pharmacy 43.9 ml/min; Est GFR (African American) 68.6 ml/min; Est GFR (Non-African American) 59.2 ml/min; Total Protein 7.2 gm/dl (6.0-8.3)
[2021-08-27] MEDS ORDERED: SODIUM CHLORIDE 0.9% 1000ML 1,000 ML IV ONE (20:20)
[2021-08-27] MEDS ORDERED: ONDANSETRON INJ 2 MG/ML 2 ML VIAL IV STA (20:43)
[2021-08-27] MEDS ORDERED: SODIUM CHLORIDE 0.9% 1000ML 500 ML IV ONE (20:43)
[2021-08-27] MEDS ORDERED: MAGNESIUM SULFATE / D5W 1 GM/100 ML BAG IV STA (21:29)
--- NOTE | 2021-08-27 21:51 | History & Physical Report ---
Date of Service August 27, 2021 Assessment & Plan (1) Altered mental status: Plan: hx mild cognitive impairment as per records Multifactorial : Dehydration from COVID-19 illness (patient currently without new respiratory symptoms, hx COPD/bronchiectasis as per records) Home narcotics/neuropsychotropic meds contributory hx CAD status post CABG/stent SSS sp PPM, A. fib status post Watchman procedure, paced rhythm DM2 on oral medications, reasonable control as of recent hemoglobin A1c of 8.17 April 2021 past history DVT as per records chronic anemia, at baseline mediastinal mass as per records, possibly thyroid goiter extension as per outpatient CT surgery note. OBS GMF IVF Appropriate to hold narcotics/neuropsychotropic meds until patient mentation back to baseline Supportive management for COVID-19 illness (Patient daughter requesting patient not be told of COVID-19 diagnosis.) Basal insulin, ISS BG goal 1 10-1 40, carb count coverage, update hemoglobin A1c PT OT eval DVT prophylaxis. Lovenox subcu DNR as per patient's prior directives. Patient daughter requesting updates from providers. She requests for providers to call her first prior to giving patient any new medications (e.g. steroids, antiviral Rx for worsening COVID-19 illness) Ms. Luzma Hernandez, contact #[phone]. Text document was generated using [employer] voice recognition software. It may contain grammatical or spelling errors. Kindly contact undersigned for clarification of any documentation item in question. History of Present Illness Chief Complaint: Confusion, decreased responsiveness Primary Care Provider: Kori Gutierrez MD History obtained from patient, family, and records. Patient is a fair historian. Medical history significant for CAD status post CABG/stent, SSS sp PPM, A. 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 Last confinement February 2020 for polypharmacy. Patient noted to be confused and slow to respond this morning. Patient denies chest pain/ shortness of breath/unusual cough symptoms. No known recent COVID- 19 contacts as per family. Patient has not received COVID-19 vaccination. Patient brought to the ER for evaluation. Medical History as above Surgical History : CABG, PPM, watchman device placement, inguinal hernia repair, kidney stone removal Family History : Heart disease Personal/Social history : Non-smoker, no EtOH intake, retired derrick hand, lives with Allergies Allergy/AdvReac Type Severity Reaction Status Date / Time Iodinated Contrast Media Allergy Severe Hives Verified 08/27/21 23:23 Sulfa (Sulfonamide Allergy Severe Rash Verified 08/27/21 23:23 Antibiotics) sertraline [From Zoloft] Allergy Unknown Verified 08/27/21 17:48 isosorbide AdvReac Severe GI SYMPTOMS Verified 08/27/21 23:22 Home Medications Medication Instructions Recorded Confirmed Type albuterol sulfate 2.5 mg INHALATION DIRECTED PRN 03/03/20 08/27/21 History amlodipine 5 mg tablet 5 mg PO QAM 03/03/20 08/27/21 History atorvastatin 20 mg tablet 20 mg PO PM 03/03/20 08/27/21 History clopidogrel 75 mg tablet 75 mg PO QAM 03/03/20 08/27/21 History hydrocodone 5 mg-acetaminophen 325 1 tab PO Q8H PRN 03/03/20 08/27/21 History mg tablet metformin 500 mg tablet 1,000 mg PO BID 03/03/20 08/27/21 History metoprolol tartrate 50 mg tablet 50 mg PO BID 03/03/20 08/27/21 History omeprazole 20 mg capsule,delayed 20 mg PO BID 03/03/20 08/27/21 History release ascorbic acid (vitamin C) 500 mg 500 mg PO DAILY 08/27/21 08/27/21 History tablet (Vitamin C) aspirin 81 mg tablet,delayed 81 mg PO DAILY 08/27/21 08/27/21 History release fluticasone furoate 200 1 ea INHALATION DAILY 08/27/21 08/27/21 History mcg-vilanterol 25 mcg/dose inhalation powder (Breo Ellipta) lorazepam 1 mg tablet 1 mg PO Q8 PRN 08/27/21 08/27/21 History Past Med/Surg History Medical History Anemia HX Anxiety and depression Bronchiectasis MONITORED BY PULM CAD (coronary artery disease) S/p 3 vessel CABG in 1985; s/p two stents - most recent stent 2009 Carotid stenosis On ASA and Plavix- follows with cardio- stable COPD (chronic obstructive pulmonary disease) WELL CONTROLLED, USUALLY WORSE IN WINTER Diabetes mellitus, type II NIDDM DVT (deep venous thrombosis) OVER 10 YRS AGO > FROM AN INJURY > RIGHT LEG GERD (gastroesophageal reflux disease) Hard of hearing GIVING HX HLD (hyperlipidemia) HTN (hypertension) Insomnia Ischemic cardiomyopathy EF previous 30%- did improve to 50% Kidney stones HX AND ALSO HAS SOME CURRENTLY Pacemaker PLACED 2010 SECONDARY TO SSS. LAST CHECKED LAST WEEK AT HOSPITAL PER PT. > [facility] Paroxysmal atrial fibrillation WATCHMAN PUT IN FOR THIS IN 2018 NO CARDIOVERSIONS> NO AC NEEDED Presence of Watchman left atrial appendage closure device 2018> [facility] > DR. CANTU Thyroid nodule Urinary frequency BLADDER STIMULATOR TO BE REPLACED WITHIN NEXT MONTH Surgical History Abdominal hernia WITH REPAIR H/O inguinal hernia repair X2 History of bladder surgery Has bladder stimulator, PLACED 8 YRS AGO> FOLLOWS A DR ANA FRANCO FOR THIS, History of cardiac cath X2, SEE STENT INFO History of cataract surgery BILAT History of colonoscopy History of esophagogastroduodenoscopy (EGD) History of heart artery stent 2 STENTS > LAST ONE OVER 10 YRS AGO History of lithotripsy History of prostate surgery IS UNSURE OF WHAT EXACTLY WAS DONE> YEARS AGO History of tonsillectomy History of tooth extraction Hx of CABG 1985 TRIPLE> FOLLOWS DR. GARCIA WITH [facility] Hx of toe surgery PLASTIC JOINT PLACED RIGHT BIG TOE Family History Father Diabetes Brother Diabetes Social History Smoking Status: Never smoker Second Hand Exposure: No; Hx Alcohol Use: No Hx Substance Use: No Preferred Language: Chinese Communication Ability: Effective Acquisition Marketing Coordinator Required: No Beliefs That Will Affect Care: None Current Living Situation: Spouse Current Living Situation Comment: independent living at [facility] with current occupational status: retired Feels Safe at Home: Yes Safety Concerns: Feels Safe At This Time Assistive Devices: Glasses and Walker Review of Systems Review of Systems: As per HPI, all 10 systems reviewed, all other ROS negative Physical Exam Physical Exam: GENERAL: Slightly anxious, slow response to some questions, oriented to year, no respiratory distress SKIN: Pallor,, warm HEENT: Partial alopecia, pale palpebral conjunctivae, no ptosis, dry buccal mucosa NECK : Supple, no tenderness CHEST : Decreased breath sounds, no tenderness HEART : RRR, no obvious murmurs ABDOMEN: Some distention, nontender EXTREMITIES : Minimal LE swelling, no LE tenderness, no other conspicuous deformities noted NEUROLOGIC : Coherent, slow response to some questions, oriented to year, no facial asymmetry, intention tremors, gait and stance not assessed Results & Data Results & Data ([facility]) Vital Signs (Past 12 Hours) Vital Signs Temp Pulse Pulse Resp BP BP Pulse Ox 08/27/21 20:00 73 18 144/73 H 95 08/27/21 19:00 68 22 136/70 97 08/27/21 18:30 76 23 96 08/27/21 18:00 69 16 115/65 08/27/21 17:30 70 25 H 94 08/27/21 17:00 72 21 153/71 H 95 08/27/21 16:42 37 C 74 18 144/74 H 96 Laboratory Results Laboratory Results WBC 4.32 K/uL (4.8-10.8) L 08/27/21 17:12 RBC 3.92 M/uL (4.7-6.1) L 08/27/21 17:12 Hgb 11.7 g/dL (14.0-18.0) L 08/27/21 17:12 Hct 35.5 % (42-52) L 08/27/21 17:12 MCV 90.6 fL (80-100) 08/27/21 17:12 MCH 29.8 pg (25-34) 08/27/21 17:12 MCHC 33.0 g/dL (32-36) 08/27/21 17:12 RDW Std Deviation 44.2 fL (36.4-46.3) 08/27/21 17:12 RDW Coeff of [place] 13.4 % (11.5-14.5) 08/27/21 17:12 Plt Count 159 K/uL (130-400) 08/27/21 17:12 MPV 10.3 fL (7.4-10.4) 08/27/21 17: Immature Gran % (Auto) 0.0 % 08/27/21 17:12 Neut % (Auto) 67.1 % 08/27/21 17:12 Lymph % (Auto) 19.9 % 08/27/21 17:12 [place] % (Auto) 12.5 % 08/27/21 17:12 Eos % (Auto) 0.5 % 08/27/21 17:12 Baso % (Auto) 0.0 % 08/27/21 17:12 Neut # (Auto) 2.90 K/uL (1.4-6.5) 08/27/21 17:12 Lymph # (Auto) 0.86 K/uL (1.2-3.4) L 08/27/21 17:12 [place] # (Auto) 0.54 K/uL (0.11-0.59) 08/27/21 17:12 Eos # (Auto) 0.02 K/uL (0-0.5) 08/27/21 17:12 Baso # (Auto) 0.00 K/uL (0-0.2) 08/27/21 17:12 Immature Gran # (Auto) 0.00 K/uL (0.00-0.02) 08/27/21 17:12 Sodium 134 mmol/L (136-145) L 08/27/21 17:12 Potassium 4.0 mmol/L (3.5-5.1) 08/27/21 17:12 Chloride 100 mmol/L (98-107) 08/27/21 17:12 Carbon Dioxide 21 mmol/L (21-32) 08/27/21 17:12 Anion Gap 13 (3-11) H 08/27/21 17:12 BUN 17 mg/dl (6-23) 08/27/21 17:12 Creatinine 1.12 mg/dl (0.6-1.4) 08/27/21 17:12 Est Cr Clr Drug Dosing 43.9 ml/min 08/27/21 17:12 Est GFR ( Amer) 68.6 ml/min 08/27/21 17:12 Est GFR (Non-Af Amer) 59.2 ml/min 08/27/21 17:12 BUN/Creatinine Ratio 15.2 (10-20) 08/27/21 17:12 Glucose 116 mg/dl (70-99) H 08/27/21 17:12 Calcium 9.0 mg/dl (8.5-10.1) 08/27/21 17:12 Magnesium 1.6 mg/dl (1.7-2.4) L 08/27/21 17:12 Total Bilirubin 0.5 mg/dl (0.2-1.0) 08/27/21 17:12 AST 26 U/L (13-39) 08/27/21 17:12 ALT 16 U/L (7-52) 08/27/21 17:12 Alkaline Phosphatase 57 U/L (34-104) 08/27/21 17:12 Troponin I 0.03 ng/ml (0-0.04) 08/27/21 17:12 Total Protein 7.2 gm/dl (6.0-8.3) 08/27/21 17:12 Albumin 4.2 gm/dl (3.4-5.0) 08/27/21 17:12 Globulin 3.0 gm/dl (2.5-4.0) 08/27/21 17:12 Albumin/Globulin Ratio 1.4 (0.9-2) 08/27/21 17:12 TSH 1.396 uIu/ml (0.300-4.500) 08/27/21 17:12 Urine Color Yellow 08/27/21 17:12 Urine Appearance Clear (Clear) 08/27/21 17:12 Urine pH 5.0 (4.5-7.5) 08/27/21 17:12 Ur Specific [place] 1.010 (1.000-1.030) 08/27/21 17:12 Urine Protein Trace (Negative) H 08/27/21 17:12 Urine Glucose (UA) Negative (Negative) 08/27/21 17:12 Urine Ketones 1+ (Negative) H 08/27/21 17:12 Urine Blood Negative (Negative) 08/27/21 17:12 Urine Nitrite Negative (Negative) 08/27/21 17:12 Urine Bilirubin Negative (Negative) 08/27/21 17:12 Urine Urobilinogen Negative (Negative) 08/27/21 17:12 Ur Leukocyte Esterase Negative (Negative) 08/27/21 17:12 Urine WBC (Auto) 0 /hpf (0-5) 08/27/21 17:12 Urine RBC (Auto) 0-4 /hpf (0-4) 08/27/21 17:12 U Hyaline Cast (Auto) 5-10 /lpf (0-5) H 08/27/21 17:12 U Epithel Cells (Auto) 5-10 /lpf (0-5) H 08/27/21 17:12 Urine Bacteria (Auto) Negative (Negative) 08/27/21 17:12 SARS-CoV-2, RNA, NAAT POSITIVE (NEGATIVE) A* 08/27/21 17:31 Impressions Abdomen/Pelvis CT 08/27/21 16:[address] WITHOUT CONTRAST HISTORY: Acute upper abdominal pain. COVID Positive. upper ab pain TECHNIQUE: Multiaxial CT images of the abdomen and pelvis were performed without contrast. A dose lowering technique was utilized adhering to the principles of ALARA. COMPARISON STUDY: CT abdomen and pelvis 03/03/2020 FINDINGS: Prior median sternotomy. Moderate cardiomegaly with partially imaged pacer leads. Mild bibasilar groundglass densities. Limited study secondary to upper Ailyn positioning and lack of contrast. No pneumatosis or pneumoperitoneum. The unenhanced spleen, mildly atrophic pancreas, gallbladder and adrenal glands are unremarkable. Liver also appears to be within normal limits. Mild nonspecific bilateral perinephric stranding. There are a few punctate nonobstructing calculi noted within the bilateral kidneys. No ureteral calculi or hydronephrosis. Mild prostamegaly. Possible TURP defect within the central prostate. Mild nonspecific urinary bladder wall thickening. Atherosclerosis of the aorta with mild infrarenal ectasia measuring 2 cm. Small left inguinal hernia redemonstrated containing fat and trace fluid with adjacent surgical clips. No bowel obstruction or bowel wall thickening. Colonic diverticulosis without acute diverticulitis. Normal appendix. Unremarkable soft tissues. Degenerative changes of the spine, pelvis and hips. Chronic bilateral L5 pars defects. No acute fracture identified. IMPRESSION: 1. Bibasilar groundglass densities represent atelectasis versus a nonspecific infectious or inflammatory pneumonitis. 2. No bowel obstruction or bowel wall thickening. 3. Colonic diverticulosis. 4. Unchanged small fat and fluid filled left inguinal hernia. 5. Punctate nonobstructing nephrolithiasis. No ureteral calculi or hydronephrosis. 6. Additional findings as above. ACT 112: Negative or not required by law. The above report was generated using voice recognition software. It may contain grammatical, syntax or spelling errors. Electronically signed by: Ivan Garcia M.D. 08/27/2021 6:[address] 08/27/21 16:46 CT head/brain wo con CLINICAL HISTORY: 86 years-old Male with confusion. Acutely altered mental status TECHNIQUE: Multiple axial CT images of the head were obtained without contrast. A dose lowering technique was utilized adhering to the principles of ALARA. CT DOSE: 939.49 mGy.cm COMPARISON: Head CT 03/06/2020 FINDINGS: No acute intracranial hemorrhage, midline shift, intracranial mass, hydrocephalus, territorial ischemia or abnormal extra-axial collection. Age- related involutional changes. White matter hypodensities suggest chronic microvascular ischemic disease. Cerebral vascular calcifications. The calvarium is intact. Mastoid air cells are clear. Mild polypoid mucosal thickening of the maxillary sinuses with moderate to severe mucosal thickening of the ethmoid air cells. Moderate because of thickening of the nasal turbinates. Rightward bowing and spurring the nasal septum. Prior bilateral lens repair. IMPRESSION: No acute intracranial abnormality. ACT 112: Negative or not required by law. The above report was generated using voice recognition software. It may contain grammatical, syntax or spelling errors. Electronically signed by: Ivan Garcia M.D. 08/27/2021 6:22 PM Chest X-Ray 08/27/21 16:47 XR chest 1V portable HISTORY: 86 years-old Male weakness acute weakness COMPARISON: Chest radiograph 03/06/2020 TECHNIQUE: Portable AP view of the chest FINDINGS: Cardiac silhouette is enlarged. Prior median sternotomy. Left subclavian pacer. No pneumothorax or lobar airspace consolidation. Blunting of the lateral costophrenic angles. Mild interstitial coarsening of the mid to lower lung zones. Degenerative changes of the shoulders and spine. IMPRESSION: Cardiomegaly with mild mid to lower lung zone interstitial coarsening. This may represent atelectasis versus a nonspecific pneumonitis. ACT 112: Negative or not required by law. The above report was generated using voice recognition software. It may contain grammatical, syntax or spelling errors. Electronically signed by: Ivan Garcia M.D. 08/27/2021 5:23 PM Diagnostic Findings EKG as per my interpretation: Rate 75, paced rhythm
[2021-08-27] MEDS ORDERED: ALBUTEROL HFA 8 GM INHALER INH PRN (21:59)
[2021-08-27] MEDS ORDERED: PROMETHAZINE HCL 6.25 MG in SODIUM CHLORIDE 0.9% 50 ML IV PRN (23:19)
[2021-08-27] MEDS ORDERED: GLUCOSE 10 TABS/TUBE PO PRN (23:19)
[2021-08-27] MEDS ORDERED: CARBOHYDRATES FOR HYPOGLYCEMIA PO PRN (23:19)
[2021-08-27] MEDS ORDERED: DEXTROSE 50% 50 ML SYRINGE IV PRN (23:19)
[2021-08-27] MEDS ORDERED: ACETAMINOPHEN 325 MG TAB PO PRN (23:19)
[2021-08-27] MEDS ORDERED: GLUCAGON FOR INJ 1 MG VIAL SQ PRN (23:19)
[2021-08-27] MEDS ORDERED: GLUCOSE 40% GEL 15 GM TUBE PO PRN (23:19)
[2021-08-27] MEDS ORDERED: MELATONIN 3 MG TAB PO PRN (23:58)
[2021-08-28] MEDS: METOPROLOL TARTRATE 50 MG TAB PO SCH ×2 (01:18→08:42)
[2021-08-28] MEDS: INSULIN ASPART PER UNIT SC SCH ×2 (01:18→08:55)
[2021-08-28 04:58] LABS: Eosinophils # (auto) 0.01 K/uL (0-0.5); Eosinophils % (auto) 0.2 %; Hematocrit (blood only) 33.2 % (42-52); Hemoglobin 10.8 g/dL (14.0-18.0); Lymphocytes # (auto) 0.74 K/uL (1.2-3.4); Mean Corpuscular Hgb Conc 32.5 g/dL (32-36); Mean Corpuscular Volume 92.2 fL (80-100); Mean Platelet Volume 9.7 fL (7.4-10.4); Monocytes # (auto) 0.48 K/uL (0.11-0.59); Monocytes % (auto) 11.7 %; Neutrophils # (auto) 2.87 K/uL (1.4-6.5); Neutrophils % (auto) 70.1 %; Platelet Count 158 K/uL (130-400); RDW Coefficient of Variation 13.5 % (11.5-14.5); RDW Standard Deviation 45.5 fL (36.4-46.3)
[2021-08-28 05:27] LABS: BUN Creatinine Ratio 12.6 (10-20); Calcium 8.4 mg/dl (8.5-10.1); Creatinine Clr Calc Pharmacy 51.7 ml/min; Est GFR (African American) 83.7 ml/min; Est GFR (Non-African American) 72.2 ml/min; Magnesium 1.7 mg/dl (1.7-2.4); Potassium 4.3 mmol/L (3.5-5.1)
[2021-08-28 05:54] LABS: Estimated Average Glucose 169 mg/dl; Hemoglobin A1C 7.5 % (4.5-5.6)
[2021-08-28] MEDS ORDERED: ASPIRIN 81 MG ECTAB PO SCH (09:00)
[2021-08-28] MEDS ORDERED: PANTOprazole 40 MG TAB PO SCH (09:00)
[2021-08-28] MEDS ORDERED: ENOXAPARIN INJ 30 MG/0.3 ML SYR SQ SCH (09:00)
[2021-08-28] MEDS ORDERED: amLODIPine BESYLATE 5 MG TAB PO SCH (09:00)
[2021-08-28] MEDS ORDERED: FLUTICASONE/VILANTEROL 200/25MCG 14 PUFFS/INHALER INH SCH (09:00)
[2021-08-28] MEDS ORDERED: INSULIN GLARGINE SOLOSTAR 100 UNITS/ML 3 ML PEN SC SCH (09:00)
[2021-08-28] MEDS ORDERED: CLOPIDOGREL BISULFATE 75 MG TAB PO SCH (09:00)
[2021-08-28] MEDS ORDERED: ATIVAN 1MG HOMEPACK PO PRN (11:28)
[2021-08-28] MEDS ORDERED: LORazepam 0.5 MG TAB PO PRN (11:30)
[2021-08-28 13:08] LABS: Influenza A virus by PCR Negative (Neg); Influenza B virus by PCR Negative (Neg); RSV by PCR Negative (Neg)
[2021-08-28 13:19] LABS: SARS CoV2 RNA(COVID-19) InHosp POSITIVE (Negative)
--- NOTE | 2021-08-28 15:02 | Hospitalist Progress Note ---
Date of Service August 28, 2021 Assessment & Plan (1) Altered mental status: Plan: Altered mental status H/O mild cognitive impairment as per records Likely acute metabolic encephalopathy due to COVID, meds, dehydration -CT head:No acute intracranial abnormality. Mental status seemed to be better today Hold Sedative meds as able Received IV fluids COVID-19 illness -CXR:Cardiomegaly with mild mid to lower lung zone interstitial coarsening. This may represent atelectasis versus a nonspecific pneumonitis. H/O COPD/bronchiectasis as per records Patient is unvaccinated as per family Isolation precautions Explained the risks and complications to the patient's family Despite explaining the risks and consequences of not being monitored or treated, patient's daughter would prefer patient to sign out AGAINST MEDICAL ADVICE CAD S/P CABG/stent SSS sp PPM Continue aspirin, Plavix, statin, metoprolol Hypomagnesemia Replace electrolytes as needed A. fib S/P Watchman procedure Paced rhythm Continue metoprolol DM II Hold oral medications Last HbA1C: 8.17 April 2021 Continue insulin therapy while hospitalized H/O DVT chronic anemia Monitor H/O Mediastinal mass as per records Possibly thyroid goiter extension as per outpatient CT surgery note. Follow up as outpatient DVT Px: Lovenox SQ Code Status DNR/DNI Disposition AGAINST MEDICAL ADVICE Admission and Anticipated Discharge Date Admission Date: August 27, 2021 Subjective Patient is seen and examined at bedside States feeling weak and tired Reports having minimal cough chronically which is unchanged Denies any chest pain, shortness of breath, dizziness, nausea, abdominal pain Discussed with patient's daughter at bedside for prolonged period of time Speech better today as per patient's family Review of Systems Review of Systems: All systems reviewed & are unremarkable except as noted in Subjective Physical Exam Physical Exam: Physical Exam: Vitals signs as noted above General Appearance: Elderly, chronic ill appearing, no apparent distress Head: normocephalic, Atraumatic Eyes: normal inspection, EOMI Neck: supple, Trachea midline Respiratory/Chest: Decreased breath sounds, basal crackles, No accessory muscle use Cardiovascular: S1, S2, No murmur Abdomen/GI:Soft, Non tender, Bowel sounds present Extremities/Musculoskeletal:normal inspection, Trace edema Neurologic/Psych:Alert, awake, oriented, grossly moves all extremities Skin: normal color, warm Results & Data Results & Data ([facility]) Vital Signs (Past 12 Hours) Vital Signs Pulse Resp BP Pulse Ox 08/28/21 13:56 60 20 127/59 L 93 08/28/21 11:54 93 08/28/21 08:09 74 20 111/61 93 08/28/21 06:43 75 16 104/59 L 93 08/28/21 04:09 78 16 104/64 93 Laboratory Results Short CBC 08/27/21 08/28/21 Range/Units 17:12 04:35 WBC 4.32 L 4.10 L (4.8-10.8) K/uL Hgb 11.7 L 10.8 L (14.0-18.0) g/dL Hct 35.5 L 33.2 L (42-52) % Plt Count 159 158 (130-400) K/uL BMP 08/27/21 08/28/21 17:12 04:35 Sodium 134 L 135 L Potassium 4.0 4.3 Chloride 100 103 Carbon Dioxide 21 22 BUN 17 12 Creatinine 1.12 0.95 Glucose 116 H 104 H Calcium 9.0 8.4 L Cardiac Enzymes 08/27/21 Range/Units 17:12 Troponin I 0.03 (0-0.04) ng/ml Liver Function 08/27/21 Range/Units 17:12 Total Bilirubin 0.5 (0.2-1.0) mg/dl AST 26 (13-39) U/L ALT 16 (7-52) U/L Alkaline Phosphatase 57 (34-104) U/L Albumin 4.2 (3.4-5.0) gm/dl Urine 08/27/21 Range/Units 17:12 Urine Color Yellow Urine Appearance Clear (Clear) Urine pH 5.0 (4.5-7.5) Ur Specific [place] 1.010 (1.000-1.030) Urine Protein Trace H (Negative) Urine Glucose (UA) Negative (Negative)
--- NOTE | 2021-08-28 17:00 | Discharge Summary ---
Date of Service August 28, 2021 Admission HPI Per Admitting Provider History obtained from patient, family, and records. Patient is a fair historian. Medical history significant for CAD status post CABG/stent, SSS sp PPM, A. fib status post watchman procedure, valvular heart disease (mild MR/TR, 03/2020), COPD/bronchiectasis as per records, DM2 on oral medications, mild cognitive impairment as per records, past history DVT as per records, chronic anemia (baseline hemoglobin 11-12), mediastinal mass as per records, anxiety/mood disorder. Last confinement February 2020 for polypharmacy. Patient noted to be confused and slow to respond this morning. Patient denies chest pain/ shortness of breath/unusual cough symptoms. No known recent COVID- 19 contacts as per family. Patient has not received COVID-19 vaccination. Patient brought to the ER for evaluation. Medical History as above Surgical History : CABG, PPM, watchman device placement, inguinal hernia repair, kidney stone removal Family History : Heart disease Personal/Social history : Non-smoker, no EtOH intake, retired automotive production worker, lives with Admission Exam Per Admitting Provider Physical Exam Physical Exam: GENERAL: Slightly anxious, slow response to some questions, oriented to year, no respiratory distress SKIN: Pallor,, warm HEENT: Partial alopecia, pale palpebral conjunctivae, no ptosis, dry buccal mucosa NECK : Supple, no tenderness CHEST : Decreased breath sounds, no tenderness HEART : RRR, no obvious murmurs ABDOMEN: Some distention, nontender EXTREMITIES : Minimal LE swelling, no LE tenderness, no other conspicuous deformities noted NEUROLOGIC : Coherent, slow response to some questions, oriented to year, no facial asymmetry, intention tremors, gait and stance not assessed Principal Diagnosis Altered mental status CVOID 19 infection Discharge Data Allergies Allergy/AdvReac Type Severity Reaction Status Date / Time Iodinated Contrast Media Allergy Severe Hives Verified 08/27/21 23:23 Sulfa (Sulfonamide Allergy Severe Rash Verified 08/27/21 23:23 Antibiotics) sertraline [From Zoloft] Allergy Unknown Verified 08/27/21 17:48 isosorbide AdvReac Severe GI SYMPTOMS Verified 08/27/21 23:22 Consultations 08/27/21 19:54 ED Decision to Admit Stat Ordered Studies 08/27/21 16:46 CT abd pelvis wo con Stat CT head/brain wo con Stat Hospital Course (1) Altered mental status: Altered mental status H/O mild cognitive impairment as per records Likely acute metabolic encephalopathy due to COVID, meds, dehydration -CT head:No acute intracranial abnormality. Mental status seemed to be better today Hold Sedative meds as able Received IV fluids COVID-19 illness -CXR:Cardiomegaly with mild mid to lower lung zone interstitial coarsening. This may represent atelectasis versus a nonspecific pneumonitis. H/O COPD/bronchiectasis as per records Patient is unvaccinated as per family Isolation precautions Explained the risks and complications to the patient's family Despite explaining the risks and consequences of not being monitored or treated, patient's daughter would prefer patient to sign out AGAINST MEDICAL ADVICE CAD S/P CABG/stent SSS sp PPM Continue aspirin, Plavix, statin, metoprolol Hypomagnesemia Replace electrolytes as needed A. fib S/P Watchman procedure Paced rhythm Continue metoprolol DM II Hold oral medications Last HbA1C: 8.17 April 2021 Continue insulin therapy while hospitalized H/O DVT chronic anemia Monitor H/O Mediastinal mass as per records Possibly thyroid goiter extension as per outpatient CT surgery note. Follow up as outpatient DVT Px: Lovenox SQ Code Status DNR/DNI Disposition AGAINST MEDICAL ADVICE Total Time Total Time Spent Total Time Spent (In Minutes): 45 minutes Discharge Plan Discharge Items Patient Disposition: Against Medical Advice Reason For Visit: AMS, COVID Discharge Diagnosis: pt being signed out AMA by Luzma daughter PODung Activity: Per Instructions section Non-emergency contact: Primary Care Provider Call non-emergency contact if: you have any medication questions, your symptoms worsen, your pain is unusual for you and your temperature is above 101 Follow-up/Referrals: Kori Clarke MD [Primary Care Provider] - Diet: Carb Consistent or DM2 Addtl Attending Provider Instructions: Follow-up with your primary care physician Dr. Joey Gutierrez in 1 week as advised Pending Studies at Discharge: No Stand-Alone Forms: My [facility], Smoking Cessation Medications and DC Order Prescriptions: Continued metformin 500 mg Tablet 1,000 mg PO BID RF: 0 atorvastatin 20 mg tablet 20 mg PO PM RF: 0 albuterol sulfate 2.5 mg /3 mL (0.083 %) Solution For Nebulization 2.5 mg INHALATION DIRECTED PRN (Reason: Shortness Of Breath Or Wheezing) RF: 0 hydrocodone-acetaminophen 5-325 mg tablet 1 tab PO Q8H PRN (Reason: Pain) RF: 0 clopidogrel 75 mg tablet 75 mg PO QAM RF: 0 amlodipine 5 mg tablet 5 mg PO QAM RF: 0 metoprolol tartrate 50 mg tablet 50 mg PO BID RF: 0 omeprazole 20 mg capsule,delayed release(DR/EC) 20 mg PO BID RF: 0 aspirin 81 mg tablet,delayed release (DR/EC) 81 mg PO DAILY RF: 0 ascorbic acid (vitamin C) [Vitamin C] 500 mg Tablet 500 mg PO DAILY RF: 0 lorazepam 1 mg tablet 1 mg PO Q8 PRN (Reason: Anxiety) RF: 0 Breo Ellipta 200-25 mcg/dose blister with device 1 ea INHALATION DAILY RF: 0 Discharge Orders: Left Against Medical Advice (Routine); Ordered 08/28/21 Ordered By: Devyn Chen/Other Patient Handouts: Managing Type 2 Diabetes Admission Data Admit Date/Time: 08/27/21 21:59 Attending Provider: Devyn Welsh Admit Provider: Kodi Patton Primary Care Provider: Kori Clarke Other Providers: Kodi Patton
--- NOTE | 2021-08-28 18:17 | Electrocardiogram Report ---
Test Reason : Blood Pressure : / mmHG Vent. Rate : 074 BPM Atrial Rate : 074 BPM P-R Int : 154 ms QRS Dur : 198 ms QT Int : 450 ms P-R-T Axes : 028 -72 102 degrees QTc Int : 499 ms Atrial-sensed ventricular-paced rhythm Abnormal ECG When compared with ECG of 06-MAR-2020 11:11, Vent. rate has increased BY 12 BPM Confirmed by Bob Goodrich ([id number]) on 08/28/2021 6:17:01 PM Referred By: Toño Duque Confirmed By:Bob Goodrich
[2021-08-28] MEDS ORDERED: ATORVASTATIN 20 MG TAB PO SCH (21:00)
== END 2021-08-28 15:00 | disposition left against medical advice (07) ==
LOC: ED 16:31 → EDINP 16:31

== ENCOUNTER 2022-11-21 15:44 | Inpatient (IN) ==
--- NOTE | 2022-11-21 16:23 | XRay Report ---
XR chest 1V portable CLINICAL HISTORY: Chest pain, nonspecific COMPARISON STUDY: Chest CT May 19, 2022. Chest radiograph November 19, 2022. FINDINGS: There are median sternotomy wires and a dual-lead left subclavian pacer. No pneumothorax is present. There may be a trace left pleural effusion. Left basilar airspace opacity is present. There may be minimal right basilar opacity. There is no evidence for pulmonary edema. Cardiomediastinal si lhouette is stable. IMPRESSION: 1. Bibasilar opacities, greater on the left. The findings may reflect pneumonia or aspiration pneumon itis. Radiographic follow-up to ensure resolution is recommended. 2. Suspected trace left pleural effusion. ACT 112: Negative or not required by law. Electronically signed by: Saul Harris M.D. 11/21/2022 4:21 PM
--- NOTE | 2022-11-21 16:34 | Emergency Department Note ---
Impression & Plan Pneumonia, Hypomagnesemia, Chest pain, Acute alteration in mental status ED Provider Note NAME: INDIO GEORGE AGE: 87 SEX: M : 1935 ARRIVES VIA: Ambulance INFORMANT: Patient, the patient's family members ED PROVIDER(S): Ruiz Naik DO CHIEF COMPLAINT: Chest pain HPI: The patient is an 87-year-old male who presented to the emergency department for an evaluation of chest pain. The patient presented with family members. The patient apparently has been having similar problems and was seen in our facility 3 days ago. The patient had a complete work-up including laboratory and radiographic studies. No definite cause could be found the patient was felt to be slightly dehydrated. He was feeling better. He was also treated with magnesium. The patient was having some trouble urinating last evening. He feels that he has been urinating more than usual. There is been no reported trauma. There is been no reported headaches. Today when the patient's daughter went to evaluate him at the request of the patient's significant other the patient complained of chest pain. He has had no vomiting. He has had no reported fever. He has been compliant with his outpatient medications. The patient took his own outpatient nitroglycerin with some relief of his pain. ROS: See above HPI for pertinent positives & negatives. A total of 10 systems reviewed and were otherwise negative. PAST MEDICAL HISTORY: See Below PAST SURGICAL HISTORY: See Below FAMILY HISTORY: See Below SOCIAL HISTORY: See Below HOME MEDICATIONS: See Below ALLERGIES: See Below VITALS: See Below PHYSICAL EXAMINATION: GENERAL: The patient is awake and alert. He is resting comfortably. EYES: The conjunctivae are clear. The pupils are round and reactive. EARS, NOSE, MOUTH AND THROAT: The nose is without any evidence of any deformity. NECK: The neck is nontender and supple. RESPIRATORY: Normal respiratory effort is noted there is no evidence of wheezing rhonchi or rales CARDIOVASCULAR: Regular rate and rhythm noted there no murmurs rubs or gallops normal S1 normal S2. GASTROINTESTINAL: The abdomen is soft. Abdomen is nontender. MUSCULOSKELETAL/EXTREMITIES: There is no evidence of gross deformity full range of motion is noted in the hips and shoulders. SKIN: Skin was cool and dry. Skin was pale. There is no significant edema. NEUROLOGIC: Patient is awake alert and oriented x3. Strength was symmetric but diminished. MEDICAL DECISION MAKING: The patient is an 87-year-old male who presented to the emergency department for an evaluation of what the family may be describing his rigors. The patient was seen in our facility recently for similar complaints but no definite cause for his symptoms could be found. I did review his previous CT. He does appear to h ave signs of an infiltrate at the base today. The patient was treated with IV fluids and IV antibiotics. EKG shows no acute ischemic change from previous but he does have a pacemaker. Troponin was negative. Given the patient's age and comorbidities I discussed his condition with the on-call [facility] group. They have agreed to evaluate the patient in the emergency department for further management and disposition. The patient was not felt to be a good candidate for 30 cc/kg bolus given his heart history. Triage Nursing notes reviewed. Prior medical records reviewed Vital Signs: reviewed and remarkable for borderline hypotension. Differential diagnosis: Cardiac ischemia, aortic dissection, pulmonary embolism, pneumothorax, pneumonia, pericarditis, myocarditis, esophageal rupture, GERD, cholecystitis, pancreatitis, musculoskeletal, as well as other pathologies. ER treatment provided: See below Diagnostics interpreted by me: ECG: EKG was obtained in the emergency department. My interpretation is ventricular sensed atrial paced rhythm at 60 bpm. Left bundle branch block pattern was noted. There is no [place] beats. This was compared to a tracing from November 19, 2022. No changes were noted. Cardiac Monitoring: An order was placed for continuous cardiac monitoring. The monitor shows a rate of 62 bpm with pacemaker rhythm. Laboratory studies: As stated above and show below. Imaging studies: See below. Radiographic imaging was reviewed by myself Consultation(s): I discussed this case with Marta who is on-call for the [facility] ED COURSE: The patient was felt to have pneumonia with some signs of sepsis however a full 30 cc/kg bolus was avoided given the patient's cardiac history. Past Med/Surg History Medical History Anemia HX Anxiety and depression Bronchiectasis MONITORED BY PULM CAD (coronary artery disease) S/p 3 vessel CABG in 1985; s/p two stents - most recent stent 2009 Carotid stenosis On ASA and Plavix- follows with cardio- stable COPD (chronic obstructive pulmonary disease) WELL CONTROLLED, USUALLY WORSE IN WINTER Diabetes mellitus, type II NIDDM DVT (deep venous thrombosis) OVER 10 YRS AGO > FROM AN INJURY > RIGHT LEG GERD (gastroesophageal reflux disease) Hard of hearing GIVING HX HLD (hyperlipidemia) HTN (hypertension) Insomnia Ischemic cardiomyopathy EF previous 30%- did improve to 50% Kidney stones HX AND ALSO HAS SOME CURRENTLY Pacemaker PLACED 2010 SECONDARY TO SSS. LAST CHECKED LAST WEEK AT HOSPITAL PER PT. > [facility] Paroxysmal atrial fibrillation WATCHMAN PUT IN FOR THIS IN 2018 NO CARDIOVERSIONS> NO AC NEEDED Presence of Watchman left atrial appendage closure device 2018> [facility] > DR. CANTU Thyroid nodule Urinary frequency BLADDER STIMULATOR TO BE REPLACED WITHIN NEXT MONTH Surgical History Abdominal hernia WITH REPAIR H/O inguinal hernia repair X2 History of bladder surgery Has bladder stimulator, PLACED 8 YRS AGO> FOLLOWS A DR ANA FRANCO FOR THIS, History of cardiac cath X2, SEE STENT INFO History of cataract surgery BILAT History of colonoscopy History of esophagogastroduodenoscopy (EGD) History of heart artery stent 2 STENTS > LAST ONE OVER 10 YRS AGO History of lithotripsy History of prostate surgery IS UNSURE OF WHAT EXACTLY WAS DONE> YEARS AGO History of tonsillectomy History of tooth extraction Hx of CABG 1985 TRIPLE> FOLLOWS DR. GARCIA WITH [facility] Hx of toe surgery PLASTIC JOINT PLACED RIGHT BIG TOE Family History Father Diabetes Brother Diabetes Social History Smoking Status: Never smoker Second Hand Exposure: No; Hx Alcohol Use: No Hx Substance Use: No Preferred Language: Slovak Communication Ability: Effective Pipelines Manager Required: No Beliefs That Will Affect Care: None marital status: Current Living Situation: Spouse Current Living Situation Comment: independent living at [facility] with current occupational status: retired Feels Safe at Home: Yes Assistive Devices: Walker Allergies Allergies Allergy/AdvReac Type Severity Reaction Status Date / Time Iodinated Contrast Media Allergy Severe Hives Verified 11/19/22 22:42 Sulfa (Sulfonamide Allergy Severe Rash Verified 11/19/22 22:42 Antibiotics) melatonin Allergy Unknown Unknown Verified 11/19/22 22:42 sertraline [From Zoloft] Allergy Unknown Verified 11/19/22 22:42 isosorbide AdvReac Severe GI SYMPTOMS Verified 11/19/22 22:42 Home Meds Home Medications Medication Instructions Recorded Confirmed albuterol sulfate 2.5 mg/3 mL 2.5 mg inhalation BID 03/03/20 11/21/22 (0.083 %) solution for nebulization atorvastatin 20 mg tablet 20 mg PO PM 03/03/20 11/21/22 clopidogrel 75 mg tablet 75 mg PO QAM 03/03/20 11/21/22 hydrocodone 5 mg-acetaminophen 325 1 tab PO Q8H PRN Pain 03/03/20 11/21/22 mg tablet metformin 500 mg tablet 1,000 mg PO AMPM 03/03/20 11/21/22 metoprolol tartrate 50 mg tablet 50 mg PO BID 03/03/20 11/21/22 omeprazole 20 mg capsule,delayed 20 mg PO AMPM 03/03/20 11/21/22 release ascorbic acid (vitamin C) 500 mg 500 mg PO DAILY 08/27/21 11/21/22 tablet (Vitamin C) aspirin 81 mg tablet,delayed 81 mg PO DAILY 08/27/21 11/21/22 release fluticasone furoate 200 1 ea inhalation DAILY 08/27/21 11/21/22 mcg-vilanterol 25 mcg/dose inhalation powder (Breo Ellipta) lorazepam 1 mg tablet 1 mg PO Q8 PRN Anxiety 08/27/21 11/21/22 fluticasone propionate 50 2 spray intranasal DAILY 05/19/22 11/21/22 mcg/actuation nasal spray,suspension guaifenesin 600 mg tablet, 600 mg PO Q12H PRN Cough 05/19/22 11/21/22 extended release 12 hr guaifenesin 400 mg tablet 400 mg PO QPM 11/19/22 11/21/22 ketoconazole 2 % topical cream 1 applic topical BID PRN when 11/19/22 11/21/22 flaring nitroglycerin 0.4 mg sublingual 0.4 mg sublingual .EVERY 5 MINUTES 11/19/22 11/21/22 tablet PRN Chest Pain cyanocobalamin (vitamin B-12) 500 500 mcg PO DAILY 11/21/22 11/21/22 mcg tablet Previous Rx's Medication Instructions Recorded magnesium oxide 400 mg PO BID #14 caps 11/19/22 Results & Data (ED) Vital Signs Vital Signs - 24 hr 11/21/22 15:50 11/21/22 15:50 11/21/22 15:57 Pulse Rate 61 61 61 Respiratory Rate 18 18 18 Blood Pressure 112/51 L Blood Pressure Mean 71 Blood Pressure Position Lying Pulse Oximetry 94 94 94 Oxygen Delivery Method Nasal Cannula Nasal Cannula Nasal Cannula Oxygen Flow Rate 2 2 2 Sepsis Recent Fever Within 48 Hours No Sepsis New/Unexplained Change in Mental Status No Sepsis Action Taken by Nursing No Action Required 11/21/22 16:31 Pulse Rate 62 Respiratory Rate Blood Pressure Blood Pressure Mean Blood Pressure Position Pulse Oximetry Oxygen Delivery Method Oxygen Flow Rate Sepsis Recent Fever Within 48 Hours Sepsis New/Unexplained Change in Mental Status Sepsis Action Taken by Fdc Medications Current Medication List: was personally reviewed by me Laboratory Data Attestation: I reviewed the patient's lab results. 11/21/22 16:05 11/21/22 16:05 Lab Results 11/21/22 11/21/22 11/21/22 Range/Units 16:05 16:05 16:05 WBC 13.26 H (4.8-10.8) K/ul RBC 2.96 L (4.70-6.10) M/uL Hgb 9.2 L (14.0-18.0) g/dl Hct 28.1 L (42.0-52.0) % MCV 94.9 (80.0-100.0) fL MCH 31.1 (25.0-34.0) pg MCHC 32.7 (32.0-36.0) g/dL RDW Std Deviation 45.9 (36.4-46.3) fL RDW Coeff of Ashley 13.4 (11.5-14.5) % Plt Count 206 (130-400) K/uL MPV 10.5 (9.4-12.4) fL Immature Gran % (Auto) 0.4 % Neut % (Auto) 84.7 % Lymph % (Auto) 8.6 % Bates % (Auto) 5.9 % Eos % (Auto) 0.2 % Baso % (Auto) 0.2 % Neut # (Auto) 11.23 H (1.40-6.50) K/uL Lymph # (Auto) 1.14 L (1.2-3.4) K/uL Bates # (Auto) 0.78 H (0.11-0.59) K/uL Eos # (Auto) 0.03 (0-0.50) K/uL Baso # (Auto) 0.03 (0-0.2) K/uL Immature Gran # (Auto) 0.05 (0.01-0.20) K/uL PT 10.9 (9.0-12.0) Seconds INR 1.0 (0.9-1.1) APTT 25.0 (21.0-31.0) Seconds PTT Ratio 0.9 Sodium 139 (136-145) mmol/L Potassium 5.0 (3.5-5.1) mmol/L Chloride 106 (98-107) mmol/L Carbon Dioxide 27 (21-32) mmol/L Anion Gap 6 (3-11) BUN 16 (6-23) mg/dl Creatinine 1.01 (0.6-1.4) mg/dl Est Cr Clr Drug Dosing Not Reportable Est GFR ( Amer) 77.2 ml/min Est GFR (Non-Af Amer) 66.6 ml/min BUN/Creatinine Ratio 15.8 (10-20) Glucose 148 H (70-99(Fasting)) mg/dl Lactate (0.4-2.0) mmol/L Calcium 9.0 (8.6-10.3) mg/dl Magnesium 1.3 L (1.7-2.4) mg/dl Total Bilirubin 0.7 (0.2-1.0) mg/dl AST 19 (13-39) U/L ALT 17 (7-52) U/L Alkaline Phosphatase 54 (34-104) U/L Troponin I High Sens 11.9 (0-20) pg/ml Total Protein 6.1 (6.0-8.3) gm/dl Albumin 3.6 (3.4-5.0) gm/dl Globulin 2.5 (2.5-4.0) gm/dl Albumin/Globulin Ratio 1.4 (0.9-2) Lipase 11 (11-82) U/L 11/21/22 Range/Units 17:12 WBC (4.8-10.8) K/ul RBC (4.70-6.10) M/uL Hgb (14.0-18.0) g/dl Hct (42.0-52.0) % MCV (80.0-100.0) fL MCH (25.0-34.0) pg MCHC (32.0-36.0) g/dL RDW Std Deviation (36.4-46.3) fL RDW Coeff of Ashley (11.5-14.5) % Plt Count (130-400) K/uL MPV (9.4-12.4) fL Immature Gran % (Auto) % Neut % (Auto) % Lymph % (Auto) % Bates % (Auto) % Eos % (Auto) % Baso % (Auto) % Neut # (Auto) (1.40-6.50) K/uL Lymph # (Auto) (1.2-3.4) K/uL Bates # (Auto) (0.11-0.59) K/uL Eos # (Auto) (0-0.50) K/uL Baso # (Auto) (0-0.2) K/uL Immature Gran # (Auto) (0.01-0.20) K/uL PT (9.0-12.0) Seconds INR (0.9-1.1) APTT (21.0-31.0) Seconds PTT Ratio Sodium (136-145) mmol/L Potassium (3.5-5.1) mmol/L Chloride (98-107) mmol/L Carbon Dioxide (21-32) mmol/L Anion Gap (3-11) BUN (6-23) mg/dl Creatinine (0.6-1.4) mg/dl Est Cr Clr Drug Dosing Est GFR ( Amer) ml/min Est GFR (Non-Af Amer) ml/min BUN/Creatinine Ratio (10-20) Glucose (70-99(Fasting)) mg/dl Lactate 1.7 (0.4-2.0) mmol/L Calcium (8.6-10.3) mg/dl Magnesium (1.7-2.4) mg/dl Total Bilirubin (0.2-1.0) mg/dl AST (13-39) U/L ALT (7-52) U/L Alkaline Phosphatase (34-104) U/L Troponin I High Sens (0-20) pg/ml Total Protein (6.0-8.3) gm/dl Albumin (3.4-5.0) gm/dl Globulin (2.5-4.0) gm/dl Albumin/Globulin Ratio (0.9-2) Lipase (11-82) U/L Administered Medications Magnesium Sulfate/Dextrose (Magnesium Sulfate / D5w) 1 gm in 100 mls @ 100 mls/hr IV Q1H RAZIA Stop: 11/21/22 19:18 Last Admin: 11/21/22 18:19 Dose: 100 mls/hr Documented By: MARY KATE Discontinued Medications Piperacillin Sod/Tazobactam Sod (Zosyn) 4.5 gm in 120 mls @ 240 mls/hr IV NOW ONE Stop: 11/21/22 17:09 Last Admin: 11/21/22 17:30 Dose: 240 mls/hr Documented By: MARY KATE Imaging Data Attestation: I personally reviewed and interpreted this imaging study as follows: My Impression: Chest x-ray was obtained in the emergency department. My interpretation is left basilar infiltrate, no free air, final report below. Radiologist's Impression: Chest X-Ray 11/21/22 15:57 XR chest 1V portable CLINICAL HISTORY: Chest pain, nonspecific COMPARISON STUDY: Chest CT May 19, 2022. Chest radiograph November 19, 2022. FINDINGS: There are median sternotomy wires and a dual-lead left subclavian pacer. No pneumothorax is present. There may be a trace left pleural effusion. Left basilar airspace opacity is present. There may be minimal right basilar opacity. There is no evidence for pulmonary edema. Cardiomediastinal silhouette is stable. IMPRESSION: 1. Bibasilar opacities, greater on the left. The findings may reflect pneumonia or aspiration pneumonitis. Radiographic follow-up to ensure resolution is recommended. 2. Suspected trace left pleural effusion. ACT 112: Negative or not required by law. Electronically signed by: Saul Harris M.D. 11/21/2022 4:21 PM Discharge Plan Visit Data Chief Complaint: Chest Pain Stated Complaint: CHEST PAIN ED Provider: Ruiz Naik Discharge Problem: Pneumonia, Hypomagnesemia, Chest pain, Acute alteration in mental status Patient Disposition: Being Evaluated by Hospitalist Forms Stand Alone Forms: My [facility] Prescriptions Prescriptions: No Action metformin 500 mg Tablet 1,000 mg PO AMPM atorvastatin 20 mg tablet 20 mg PO PM albuterol sulfate 2.5 mg /3 mL (0.083 %) Solution For Nebulization 2.5 mg INHALATION BID hydrocodone-acetaminophen 5-325 mg tablet 1 tab PO Q8H PRN (Reason: Pain) clopidogrel 75 mg tablet 75 mg PO QAM metoprolol tartrate 50 mg tablet 50 mg PO BID omeprazole 20 mg capsule,delayed release(DR/EC) 20 mg PO AMPM aspirin 81 mg tablet,delayed release (DR/EC) 81 mg PO DAILY ascorbic acid (vitamin C) [Vitamin C] 500 mg Tablet 500 mg PO DAILY lorazepam 1 mg tablet 1 mg PO Q8 PRN (Reason: Anxiety) fluticasone furoate-vilanterol [Breo Ellipta] 200-25 mcg/dose blister with device 1 ea INHALATION DAILY guaifenesin 600 mg Tablet Extended Release 12hr 600 mg PO Q12H PRN (Reason: Cough) fluticasone propionate [Flonase] 50 mcg/actuation [place],Suspension 2 spray INTRANASAL DAILY Rx Instructions: administer into each nostril nitroglycerin 0.4 mg tablet, sublingual 0.4 mg sublingual .EVERY 5 MINUTES PRN (Reason: Chest Pain) ketoconazole 2 % cream 1 applic TOPICAL BID PRN (Reason: when flaring) guaifenesin 400 mg Tablet 400 mg PO QPM magnesium oxide 400 mg magnesium capsule 400 mg PO BID Qty: 14 0RF cyanocobalamin (vitamin B-12) 500 mcg Tablet 500 mcg PO DAILY Referrals Referrals: Kori Damon MD [Primary Care Provider] -
[2022-11-21 16:38] LABS: Basophils # (auto) 0.03 K/uL (0-0.2); Basophils % (auto) 0.2 %; Eosinophils # (auto) 0.03 K/uL (0-0.50); Eosinophils % (auto) 0.2 %; Hematocrit (blood only) 28.1 % (42.0-52.0); Hemoglobin 9.2 g/dl (14.0-18.0); Immature Granulocytes # (auto) 0.05 K/uL (0.01-0.20); Immature Granulocytes % (auto) 0.4 %; Lymphocytes # (auto) 1.14 K/uL (1.2-3.4); Lymphocytes % (auto) 8.6 %; Mean Corpuscular Hemoglobin 31.1 pg (25.0-34.0); Mean Corpuscular Hgb Conc 32.7 g/dL (32.0-36.0); Mean Corpuscular Volume 94.9 fL (80.0-100.0); Mean Platelet Volume 10.5 fL (9.4-12.4); Monocytes # (auto) 0.78 K/uL (0.11-0.59); Monocytes % (auto) 5.9 %; Neutrophils # (auto) 11.23 K/uL (1.40-6.50); Neutrophils % (auto) 84.7 %; Platelet Count 206 K/uL (130-400); RDW Coefficient of Variation 13.4 % (11.5-14.5); RDW Standard Deviation 45.9 fL (36.4-46.3); Red Blood Count 2.96 M/uL (4.70-6.10); White Blood Count 13.26 K/ul (4.8-10.8)
[2022-11-21] MEDS ORDERED: PIPERACILLIN/TAZOBACTAM 4.5 GM/120 ML BAG IV ONE (16:40)
[2022-11-21 16:57] LABS: Alanine Aminotransferase 17 U/L (7-52); Albumin Globulin Ratio 1.4 (0.9-2); Albumin Level 3.6 gm/dl (3.4-5.0); Alkaline Phosphatase 54 U/L (34-104); Anion Gap 6 (3-11); Aspartate Aminotransferase 19 U/L (13-39); BUN Creatinine Ratio 15.8 (10-20); Bilirubin,Total 0.7 mg/dl (0.2-1.0); Blood Urea Nitrogen 16 mg/dl (6-23); Carbon Dioxide 27 mmol/L (21-32); Chloride 106 mmol/L (98-107); Est GFR (African American) 77.2 ml/min; Est GFR (Non-African American) 66.6 ml/min; Globulin 2.5 gm/dl (2.5-4.0); Glucose 148 mg/dl (70-99(Fasting)); Lipase 11 U/L (11-82); Magnesium 1.3 mg/dl (1.7-2.4); Sodium 139 mmol/L (136-145); Total Protein 6.1 gm/dl (6.0-8.3)
[2022-11-21 17:02] LABS: Troponin I High Sensitivity 11.9 pg/ml (0-20)
[2022-11-21 17:11] LABS: Partial Thromboplastin Ratio 0.9; Prothrombin Time 10.9 Seconds (9.0-12.0)
[2022-11-21] MEDS ORDERED: SODIUM CHLORIDE 0.9% 1000ML 1,000 ML IV ONE (17:21)
--- NOTE | 2022-11-21 17:38 | History & Physical Report ---
Date of Service November 21, 2022 Assessment & Plan (1) Sepsis: (2) Infectious encephalopathy: (3) Pneumonitis: (4) Bronchiectasis: (5) COPD (chronic obstructive pulmonary disease): (6) Chronic respiratory failure with hypoxia: Plan This is an 87-year-old male who has a significant past medical history of COPD, chronic hypoxic resp failure on 2L of O2, bronchiectasis, atrial fibrillation, history of SSS status post pacemaker, CAD with history of cardiac stent and CABG, presence of Watchman left atrial appendage closure device, T2DM, hyperlipidemia, HTN, GERD, anemia, memory loss who presents to ED secondary to Chest pain x1 day. Sepsis pt with leukocytosis and altered mental status concerning for sepsis Infectious encephalopathy B/L pneumonitis concerning for aspiration Known Bronchiectasis COPD with chronic hypoxic resp failure on 2L of O2, no exac admit to med tele continue broad spectrum antibiotic with IV zosyn source:possible pneumonitis, can't rule out UTI/bacteremia yet obtain UA and send for culture blood cultures pending will hold sedating/mood altering meds gentle IVF LR @ 80cc/hr x 2L continue breo, as needed nebulizer obtain procalcitonin speech consult Chest pain per daughter pt took 2 ntg at home ekg stable, trop negative no CP in ED and hx difficult to obtain will cycle trops for completeness PAF with hx of watchmen device no anticoag in setting of watchmen continue metoprolol T2DM hold metformin a1c 7.2 in July, repeat insulin per protocol Hypomagnesemia replace DVT ppx: SQ lovenox Dispo: med tele, pt will need PT/OT consults when medically appropriate DNR/DNI PCP: Joey Gutierrez A total of 75 minutes was spent with greater than 50% of that time personally viewing all current laboratory work and diagnostic imaging studies obtained in the ED. Additionally, I was able to view the patients past medication reconciliation and history with direct visualization in the patients chart. Included in the time above, a portion of that time was spent assessing the patient while discussing and collaborating with specialists, if necessary, and making medical decision making on treatment plan. All of the above was collaborated with Dr. Garcia. Please see addendum for further details. History of Present Illness Chief Complaint: Chest pain x1 day Primary Care Provider: Kori Damon MD This is an 87-year-old male who has a significant past medical history of COPD, chronic hypoxic resp failure on 2L of O2, bronchiectasis, atrial fibrillation, history of SSS status post pacemaker, CAD with history of cardiac stent and CABG, presence of Watchman left atrial appendage closure device, T2DM, hyperlipidemia, HTN, GERD, anemia, memory loss who presents to ED secondary to Chest pain x1 day. Of significance patient was seen in ED 2 days prior secondary to fever and rigors. At that time work-up revealed a WBC 14.8 K, hypomagnesemia at 1.0, hypophosphatemia at 1.8, negative urinalysis for infection and negative [employer] respiratory panel. CT abdomen pelvis was performed which was negative for any acute abnormality. Head CT was also negative for any acute or cranial finding. He was discharged to home with magnesium replacement, phosphorus replacement, Pepcid and Zofran. Today patient complained of substernal chest pain and requested nitro. He received nitro x2 administered by daughter. She then summoned EMS. When patient arrived at the ER daughter noted patient to become more confused and wanting to leave. This is new for the patient. She states 2 days ago he did have a mild elevated fever at 100.3, rigors, but denies any further elevated temp. ROS unable to be obtained from patient as he is alert but confused. Daughter does complain of mild cough; however, he has been maintaining on his chronic 2 L of oxygen. She denies any syncope, nausea, vomiting, diarrhea or abdominal pain. In ED patient continues to have mild leukocytosis, H&H 9.2 and 28.1, BUN 16, creatinine 1.01, mag 1.3 And chest x-ray revealed bibasilar opacities, greater on the left, these findings may reflect pneumonia or aspiration pneumonitis, suspected trace pleural effusion. He received IV Zosyn in ED. Due to acute onset confusion head CT was performed which was negative for any acute intracranial abnormality. Allergies Allergy/AdvReac Type Severity Reaction Status Date / Time Iodinated Contrast Media Allergy Severe Hives Verified 11/19/22 22:42 Sulfa (Sulfonamide Allergy Severe Rash Verified 11/19/22 22:42 Antibiotics) melatonin Allergy Unknown Unknown Verified 11/19/22 22:42 sertraline [From Zoloft] Allergy Unknown Verified 11/19/22 22:42 isosorbide AdvReac Severe GI SYMPTOMS Verified 11/19/22 22:42 Home Medications Medication Instructions Recorded Confirmed Type albuterol sulfate 2.5 mg/3 mL 2.5 mg inhalation BID 03/03/20 11/21/22 History (0.083 %) solution for nebulization atorvastatin 20 mg tablet 20 mg PO PM 03/03/20 11/21/22 History clopidogrel 75 mg tablet 75 mg PO QAM 03/03/20 11/21/22 History hydrocodone 5 mg-acetaminophen 325 1 tab PO Q8H PRN Pain 03/03/20 11/21/22 History mg tablet metformin 500 mg tablet 1,000 mg PO AMPM 03/03/20 11/21/22 History metoprolol tartrate 50 mg tablet 50 mg PO BID 03/03/20 11/21/22 History omeprazole 20 mg capsule,delayed 20 mg PO AMPM 03/03/20 11/21/22 History release ascorbic acid (vitamin C) 500 mg 500 mg PO DAILY 08/27/21 11/21/22 History tablet (Vitamin C) aspirin 81 mg tablet,delayed 81 mg PO DAILY 08/27/21 11/21/22 History release fluticasone furoate 200 1 ea inhalation DAILY 08/27/21 11/21/22 History mcg-vilanterol 25 mcg/dose inhalation powder (Breo Ellipta) lorazepam 1 mg tablet 1 mg PO Q8 PRN Anxiety 08/27/21 11/21/22 History fluticasone propionate 50 2 spray intranasal DAILY 05/19/22 11/21/22 History mcg/actuation nasal spray,suspension guaifenesin 600 mg tablet, 600 mg PO Q12H PRN Cough 05/19/22 11/21/22 History extended release 12 hr guaifenesin 400 mg tablet 400 mg PO QPM 11/19/22 11/21/22 History ketoconazole 2 % topical cream 1 applic topical BID PRN when 11/19/22 11/21/22 History flaring magnesium oxide 400 mg PO BID #14 caps 11/19/22 11/21/22 Rx nitroglycerin 0.4 mg sublingual 0.4 mg sublingual .EVERY 5 MINUTES 11/19/22 11/21/22 History tablet PRN Chest Pain cyanocobalamin (vitamin B-12) 500 500 mcg PO DAILY 11/21/22 11/21/22 History mcg tablet Past Med/Surg History Medical History Anemia HX Anxiety and depression Bronchiectasis MONITORED BY PULM CAD (coronary artery disease) S/p 3 vessel CABG in 1985; s/p two stents - most recent stent 2009 Carotid stenosis On ASA and Plavix- follows with cardio- stable COPD (chronic obstructive pulmonary disease) WELL CONTROLLED, USUALLY WORSE IN WINTER Diabetes mellitus, type II NIDDM DVT (deep venous thrombosis) OVER 10 YRS AGO > FROM AN INJURY > RIGHT LEG GERD (gastroesophageal reflux disease) Hard of hearing GIVING HX HLD (hyperlipidemia) HTN (hypertension) Insomnia Ischemic cardiomyopathy EF previous 30%- did improve to 50% Kidney stones HX AND ALSO HAS SOME CURRENTLY Pacemaker PLACED 2010 SECONDARY TO SSS. LAST CHECKED LAST WEEK AT HOSPITAL PER PT. > [facility] Paroxysmal atrial fibrillation WATCHMAN PUT IN FOR THIS IN 2017 NO CARDIOVERSIONS> NO AC NEEDED Presence of Watchman left atrial appendage closure device 2018> [facility] > DR. CANTU Thyroid nodule Urinary frequency BLADDER STIMULATOR TO BE REPLACED WITHIN NEXT MONTH Surgical History Abdominal hernia WITH REPAIR H/O inguinal hernia repair X2 History of bladder surgery Has bladder stimulator, PLACED 8 YRS AGO> FOLLOWS A DR ANA FRANCO FOR THIS, History of cardiac cath X2, SEE STENT INFO History of cataract surgery BILAT History of colonoscopy History of esophagogastroduodenoscopy (EGD) History of heart artery stent 2 STENTS > LAST ONE OVER 10 YRS AGO History of lithotripsy History of prostate surgery IS UNSURE OF WHAT EXACTLY WAS DONE> YEARS AGO History of tonsillectomy History of tooth extraction Hx of CABG 1985 TRIPLE> FOLLOWS DR. GARCIA WITH [facility] Hx of toe surgery PLASTIC JOINT PLACED RIGHT BIG TOE Family History Father Diabetes Brother Diabetes Social History Smoking Status: Never smoker Second Hand Exposure: No; Hx Alcohol Use: No Hx Substance Use: No Preferred Language: Tanzanian Communication Ability: Effective Dowel Maker Required: No Beliefs That Will Affect Care: None marital status: Current Living Situation: Spouse Current Living Situation Comment: independent living at [facility] with current occupational status: retired Feels Safe at Home: Yes Assistive Devices: Walker Review of Systems Review of Systems: Unobtainable due to cognitive status Physical Exam Physical Exam: Constitutional: WD/WN,toxic appearing, Elderly, M, vitals as above, NAD, sitting up in bed, pleasant but confused Head: Normocephalic, Atraumatic Eyes: PERRL, conjunctivae normal, anicteric sclerae ENMT: external ear and nose normal, oropharynx normal Neck: trachea midline, no thyromegaly normal visual inspection Respiratory: normal respiratory effort, lungs clear to auscultation, no wheeze, rales, rhonchi. Normal insp/exp effort, no accessory muscle use Cardiovascular: RRR, no murmur, no edema Vessels: no JVD or carotid bruit Chest: normal inspection of chest Abdomen: normal bowel sounds, soft, nontender, no hepatosplenomegaly Musculoskeletal: no cyanosis or clubbing, AROM x 4 Skin: no rashes, warm and dry normal turgor Neurologic: PERRL, EOMI, accommodation nl, no face palsy, no dysarthria CN's II-XI intact bilaterally and moves all extremities Psychiatric: A+Ox1, euthymic affect Lymphatic: no cervical or axillary lymphadenopathy : deferred Results & Data Results & Data Vital Signs (Past 12 Hours) Vital Signs Pulse Resp BP Pulse Ox O2 Del Method O2 Flow Rate 11/21/22 16:31 62 11/21/22 15:57 61 18 94 Nasal Cannula 2 11/21/22 15:50 61 18 94 Nasal Cannula 2 11/21/22 15:50 61 18 112/51 L 94 Nasal Cannula 2 Diagnostic Findings Chest X-Ray 11/21/22 15:57 XR chest 1V portable CLINICAL HISTORY: Chest pain, nonspecific COMPARISON STUDY: Chest CT May 19, 2022. Chest radiograph November 19, 2022. FINDINGS: There are median sternotomy wires and a dual-lead left subclavian pacer. No pneumothorax is present. There may be a trace left pleural effusion. Left basilar airspace opacity is present. There may be minimal right basilar opacity. There is no evidence for pulmonary edema. Cardiomediastinal silhouette is stable. IMPRESSION: 1. Bibasilar opacities, greater on the left. The findings may reflect pneumonia or aspiration pneumonitis. Radiographic follow-up to ensure resolution is recommended. 2. Suspected trace left pleural effusion. ACT 112: Negative or not required by law. Electronically signed by: Saul Harris M.D. 11/21/2022 4:[address] 11/21/22 18:01 CT OF THE HEAD WITHOUT CONTRAST CLINICAL HISTORY: Altered mental status. COMPARISON STUDY: Head CT November 19, 2022 and May 19, 2022. CT DOSE: 614.27 mGy.cm TECHNIQUE: Helical axial images of the head were obtained without IV contrast. Automated exposure control was utilized for the study. A dose lowering technique was utilized adhering to the principles of ALARA. FINDINGS: No acute intracranial hemorrhage, midline shift or mass effect is present. The ventricular system is stable. White matter hypodensities are u nchanged and favor small vessel disease. The basal cisterns are patent. No extra-axial collections are present. There are no findings to suggest acute dural sinus thrombosis or acute territorial infarct. No significant calvarial abnormalities are present. Visualized portions of the sinuses and mastoid air cells are clear. IMPRESSION: No acute intracranial findings. ACT 112: Negative or not required by law. Electronically signed by: Saul Harris M.D. 11/21/2022 6:59 PM ECG Rate (beats per minute): 60 Additional Comments: paced rhythm COVID-19 Results Results COVID-19 Adm Lab Results: RBC 2.96 M/uL (4.70-6.10) L 11/21/22 WBC 13.26 K/ul (4.8-10.8) H 11/21/22 Hgb 9.2 g/dl (14.0-18.0) L 11/21/22 Hct 28.1 % (42.0-52.0) L 11/21/22 Plt Count 206 K/uL (130-400) 11/21/22 Neutrophils (%) (Auto) 84.7 % 11/21/22 Lymphocytes (%) (Auto) 8.6 % 11/21/22 Monocytes # (Auto) 0.78 K/uL (0.11-0.59) H 11/21/22 Eosinophils # (Auto) 0.03 K/uL (0-0.50) 11/21/22 Immature Granulocyte % (Auto) 0.4 % 11/21/22 Neutrophils # (Auto) 11.23 K/uL (1.40-6.50) H 11/21/22 Lymphocytes # (Auto) 1.14 K/uL (1.2-3.4) L 11/21/22 Monocytes # (Auto) 0.78 K/uL (0.11-0.59) H 11/21/22 Eosinophils # (Auto) 0.03 K/uL (0-0.50) 11/21/22 Basophils # (Auto) 0.03 K/uL (0-0.2) 11/21/22 Immature Granulocyte # (Auto) 0.05 K/uL (0.01-0.20) 3 Na 139 mmol/L (136-145) 11/21/22 K 5.0 mmol/L (3.5-5.1) 11/21/22 Cl 106 mmol/L (98-107) 11/21/22 CO2 27 mmol/L (21-32) 11/21/22 Anion Gap 6 (3-11) 11/21/22 BUN 16 mg/dl (6-23) 11/21/22 Creatinine 1.01 mg/dl (0.6-1.4) 11/21/22 BUN/Creatinine Ratio 15.8 (10-20) 11/21/22 Glucose Level 148 mg/dl (70-99(Fasting)) H 11/21/22 Ca 9.0 mg/dl (8.6-10.3) 11/21/22 Total Bilirubin 0.7 mg/dl (0.2-1.0) 11/21/22 AST/SGOT 19 U/L (13-39) 11/21/22 ALT/SGPT 17 U/L (7-52) 11/21/22 Alkaline Phosphatase 54 U/L (34-104) 11/21/22 Total Protein 6.1 gm/dl (6.0-8.3) 11/21/22 Albumin 3.6 gm/dl (3.4-5.0) 11/21/22 Globulin 2.5 gm/dl (2.5-4.0) 11/21/22 Albumin/Globulin Ratio 1.4 (0.9-2) 11/21/22 Procalcitonin Pending 11/21/22 PTT 25.0 Seconds (21.0-31.0) 11/21/22 INR 1.0 (0.9-1.1) 11/21/22 Chest X-Ray 11/21/22 Code Status & VTE Plan Code Status DNR/DNI VTE Prophylaxis Plan VTE Prophylaxis will be ordered: Yes Supervising Physician Co-Signing Physician Notes Patient was seen and examined at bedside with Marta GUTIERREZ in presence of dion tanner. Chart reviewed. Case discussed with Marta and agree with the documentation above with regard to history, physical exam, assessment and plan. In summary, this is a 87-year-old male with medical problems as stated being admitted for sepsis with pneumonia and encephalopathy. On exam, patient is lying comfortably in bed with nasal cannula. He is awake alert but confused and not answering questions appropriately. Fair with some bilaterally, normal heart sounds, abdomen benign, no lower extremity edema. Labs, with leukocytosis and hypomagnesemia, chest x-ray with pneumonia, concern for aspiration given recent vomiting episode 2 days back. Agree with empiric antibiotics pending blood culture results. Rest as per the note above.
[2022-11-21] MEDS: MAGNESIUM SULFATE / D5W 1 GM/100 ML BAG IV SCH ×3 (18:19→23:57)
--- NOTE | 2022-11-21 19:01 | CT Scan Report ---
CT OF THE HEAD WITHOUT CONTRAST CLINICAL HISTORY: Altered mental status. COMPARISON STUDY: Head CT November 19, 2022 and May 19, 2022. CT DOSE: 614.27 mGy.cm TECHNIQUE: Helical axial images of the head were obtained without IV contrast. Automated exposure con trol was utilized for the study. A dose lowering technique was utilized adhering to the principles o f ALARA. FINDINGS: No acute intracranial hemorrhage, midline shift or mass effect is present. The ventricular system is stable. White matter hypodensities are unchanged and favor small vessel disease. The basal cisterns are patent. No extra-axial collections are present. There are no findings to suggest acute d ural sinus thrombosis or acute territorial infarct. No significant calvarial abnormalities are presen t. Visualized portions of the sinuses and mastoid air cells are clear. IMPRESSION: No acute intracranial findings. ACT 112: Negative or not required by law. Electronically signed by: Saul Harris M.D. 11/21/2022 6:59 PM
[2022-11-21 20:50] LABS: Appearance Urine Clear (Clear); Bacteria Urine Automated Negative (Negative); Bilirubin Urine Negative (Negative); Blood Urine Negative (Negative); Color Urine Yellow; Glucose Urine UA Negative (Negative); Ketones Urine Trace (Negative); Leukocyte Esterase Urine Negative (Negative); Nitrite Urine Negative (Negative); Protein Urine 1+ (Negative); RBC Urine Automated 0-4 /hpf (0-4); Specific Gravity Urine 1.023 (1.000-1.030); Urobilinogen Urine Negative (Negative)
[2022-11-21 21:19] LABS: Uric Acid Crystals Urine Present (None Prsent)
[2022-11-21] MEDS ORDERED: CARBOHYDRATES FOR HYPOGLYCEMIA PO PRN (22:02)
[2022-11-21] MEDS ORDERED: GLUCAGON FOR INJ 1 MG VIAL SQ PRN (22:02)
[2022-11-21] MEDS ORDERED: ONDANSETRON INJ 2 MG/ML 2 ML VIAL IV PRN (22:02)
[2022-11-21] MEDS ORDERED: GLUCOSE 10 TAB/TUBE PO PRN (22:02)
[2022-11-21] MEDS ORDERED: GLUCOSE 40% GEL 15 GM TUBE PO PRN (22:02)
[2022-11-21] MEDS ORDERED: ALUMINUM/MAGNESIUM SUSP 30 ML UDC PO PRN (22:02)
[2022-11-21] MEDS ORDERED: MAGNESIUM HYDROXIDE SUSP 30 ML UDC PO PRN (22:02)
[2022-11-21] MEDS ORDERED: ACETAMINOPHEN 325 MG TAB PO PRN (22:02)
[2022-11-21] MEDS ORDERED: POLYETHYLENE (MIRALAX) 17 GM PACK PO PRN (22:02)
[2022-11-21] MEDS ORDERED: DEXTROSE 50% 50 ML SYRINGE IV PRN (22:02)
[2022-11-21] MEDS ORDERED: ALBUT/IPRATROP 3MG/0.5MG NEB 3 ML VIAL NEB PRN (22:02)
--- NOTE | 2022-11-21 22:11 | Electrocardiogram Report ---
Test Reason : Blood Pressure : / mmHG Vent. Rate : 060 BPM Atrial Rate : 060 BPM P-R Int : 164 ms QRS Dur : 186 ms QT Int : 458 ms P-R-T Axes : 117 270 111 degrees QTc Int : 458 ms AV dual-paced rhythm Abnormal ECG When compared with ECG of 19-NOV-2022 18:51, No significant change was found Confirmed by Steven Hernandez ([id number]) on 11/21/2022 10:10:42 PM Referred By: Confirmed By:Steven Hernandez
[2022-11-21] MEDS: LACTATED RINGER'S 1,000 ML IV SCH (23:14)
[2022-11-21] MEDS: ATORVASTATIN 20 MG TAB PO SCH (23:21)
[2022-11-21] MEDS: METOPROLOL TARTRATE 50 MG TAB PO SCH (23:22)
[2022-11-21] MEDS: ENOXAPARIN INJ 40 MG/0.4 ML SYR SQ SCH (23:23)
[2022-11-21] MEDS: MAGNESIUM OXIDE 400 MG TAB PO SCH (23:24)
[2022-11-21] MEDS: PANTOprazole 40 MG TAB PO SCH (23:26)
[2022-11-21] MEDS: INSULIN ASPART PER UNIT CHARGE SC SCH (23:41)
[2022-11-22] MEDS: MAGNESIUM SULFATE / D5W 1 GM/100 ML BAG IV SCH (01:46)
[2022-11-22] MEDS: PIPERACILLIN/TAZOBACTAM 3.375 GM in DEXTROSE 5% 100 ML IV SCH ×3 (02:07→16:36)
[2022-11-22 06:31] LABS: Basophils # (auto) 0.04 K/uL (0-0.2); Basophils % (auto) 0.3 %; Eosinophils # (auto) 0.01 K/uL (0-0.50); Eosinophils % (auto) 0.1 %; Hematocrit (blood only) 24.4 % (42.0-52.0); Immature Granulocytes # (auto) 0.09 K/uL (0.01-0.20); Immature Granulocytes % (auto) 0.7 %; Lymphocytes # (auto) 1.54 K/uL (1.2-3.4); Lymphocytes % (auto) 12.1 %; Mean Corpuscular Hemoglobin 30.7 pg (25.0-34.0); Mean Corpuscular Hgb Conc 32.8 g/dL (32.0-36.0); Mean Corpuscular Volume 93.5 fL (80.0-100.0); Mean Platelet Volume 10.3 fL (9.4-12.4); Monocytes % (auto) 7.1 %; Neutrophils # (auto) 10.18 K/uL (1.40-6.50); Neutrophils % (auto) 79.7 %; Platelet Count 173 K/uL (130-400); RDW Coefficient of Variation 13.6 % (11.5-14.5); RDW Standard Deviation 46.6 fL (36.4-46.3); Red Blood Count 2.61 M/uL (4.70-6.10); White Blood Count 12.76 K/ul (4.8-10.8)
[2022-11-22 06:51] LABS: Albumin Globulin Ratio 1.5 (0.9-2); Albumin Level 3.1 gm/dl (3.4-5.0); BUN Creatinine Ratio 13.5 (10-20); Bilirubin,Total 0.9 mg/dl (0.2-1.0); Calcium 8.5 mg/dl (8.6-10.3); Creatinine Clr Calc Pharmacy 39.1 ml/min; Est GFR (African American) 68.8 ml/min; Est GFR (Non-African American) 59.4 ml/min; Globulin 2.1 gm/dl (2.5-4.0); Magnesium 2.5 mg/dl (1.7-2.4); Potassium 3.9 mmol/L (3.5-5.1); Total Protein 5.2 gm/dl (6.0-8.3)
[2022-11-22] MEDS: guaiFENesin 600 MG TABCR PO PRN ×2 (08:28→20:41)
[2022-11-22] MEDS: CLOPIDOGREL BISULFATE 75 MG TAB PO SCH (08:28)
[2022-11-22] MEDS: PANTOprazole 40 MG TAB PO SCH ×2 (08:28→20:41)
[2022-11-22] MEDS: ASCORBIC ACID 500 MG TAB PO SCH (08:32)
[2022-11-22] MEDS: METOPROLOL TARTRATE 50 MG TAB PO SCH ×2 (08:32→20:41)
[2022-11-22] MEDS: ASPIRIN 81 MG ECTAB PO SCH (08:32)
[2022-11-22] MEDS: MAGNESIUM OXIDE 400 MG TAB PO SCH ×2 (08:32→20:41)
[2022-11-22] MEDS: FLUTICASONE PROPIONATE NA SPR 16 GM BTL SCH (08:33)
[2022-11-22] MEDS: FLUTICASONE/VILANTEROL 200/25MCG 14 PUFFS/INHALER INH SCH (08:33)
[2022-11-22] MEDS: CYANOCOBALAMIN (B-12) 500 MCG TABLET PO SCH (08:34)
[2022-11-22] MEDS: INSULIN ASPART PER UNIT CHARGE SC SCH ×4 (08:35→20:42)
[2022-11-22 08:55] LABS: Estimated Average Glucose 148 mg/dl; Hemoglobin A1C 6.8 % (4.5-5.6)
--- NOTE | 2022-11-22 12:14 | Hospitalist Progress Note ---
Date of Service November 22, 2022 Assessment & Plan (1) Sepsis: (2) Infectious encephalopathy: (3) Pneumonitis: (4) Bronchiectasis: (5) COPD (chronic obstructive pulmonary disease): (6) Chronic respiratory failure with hypoxia: Plan This is an 87-year-old male who has a significant past medical history of COPD, chronic hypoxic resp failure on 2L of O2, bronchiectasis, atrial fibrillation, history of SSS status post pacemaker, CAD with history of cardiac stent and CABG, presence of Watchman left atrial appendage closure device, T2DM, hyperlipidemia, HTN, GERD, anemia, memory loss who presents to ED secondary to Chest pain x1 day. Sepsis due to aspiration pneumonia with encephalopathy Known Bronchiectasis COPD with chronic hypoxic resp failure on 2L of O2, no exacerbation -Had vomiting 2 days back, fever and chills at home and presenting with sepsis. - WBC improving. Lactate normal, procalcitonin negative. UA unremarkable. Negative. -Continue Zosyn pending culture results. - DELIVERY ROOM CLERK evaluation CT chest 1. Bibasilar opacities, greater on the left. The findings may reflect pneumonia or aspiration pneumonitis. Radiographic follow-up to ensure resolution is recommended. 2. Suspected trace left pleural effusion. Head CT with no abnormality Chest pain -Likely from pneumonia. Currently no chest pain. Trops trend not significant. PAF with hx of watchman device no anticoag in setting of watchman continue metoprolol T2DM hold metformin a1c 7.2 in July, repeat insulin per protocol Hypomagnesemia Resolved with repletion Normocytic anemia- Hb 8. Relatively stable. In setting of sepsis. Monitor. DVT ppx:SQ lovenox Dispo: med tele, pending medical stability, PT OT evaluation DNR/DNI Admission and Anticipated Discharge Date Admission Date: November 21, 2022 Subjective Patient was seen and examined at bedside. He is more awake alert and conversive today. He knows his name date of . He knows he is in a hospital in [place]. He knows it is Easter today. States he feels better. Review of Systems Review of Systems: All systems reviewed & are unremarkable except as noted in Subjective Physical Exam Physical Exam: General: Sitting comfortably in bed eating breakfast, not in distress, on NC HEENT: EOMI, BANDAR, MMM Chest: Fair breath sounds bilaterally, no wheezes or crackles CVS: Regular rate and rhythm, normal heart sounds, no murmur Abdomen: Soft, non tender, not distended, normal bowel sounds Neuro: Awake, alert, oriented, conversing well, non focal Extremities: No cyanosis, clubbing or edema Results & Data Results & Data Vital Signs (Past 12 Hours) Vital Signs Temp Pulse Pulse Resp BP Pulse Ox O2 Del Method 11/22/22 11:38 36.5 C 60 18 120/69 98 Nasal Cannula 11/22/22 07:22 36.7 C 61 16 124/58 L 98 Nasal Cannula 11/22/22 03:29 36.8 C 60 16 105/46 L 97 Nasal Cannula 11/22/22 00:39 60 O2 Flow Rate 11/22/22 11:38 2 11/22/22 07:22 2 11/22/22 03:29 2 11/22/22 00:39 Laboratory Results Short CBC 11/21/22 11/22/22 Range/Units 16:05 06:05 WBC 13.26 H 12.76 H (4.8-10.8) K/ul Hgb 9.2 L 8.0 L (14.0-18.0) g/dl Hct 28.1 L 24.4 L (42.0-52.0) % Plt Count 206 173 (130-400) K/uL BMP 11/21/22 11/22/22 16:05 06:05 Sodium 139 139 Potassium 5.0 3.9 D Chloride 106 106 Carbon Dioxide 27 29 BUN 16 15 Creatinine 1.01 1.11 Glucose 148 H 158 H Calcium 9.0 8.5 L Liver Function 11/21/22 11/22/22 Range/Units 16:05 06:05 Total Bilirubin 0.7 0.9 (0.2-1.0) mg/dl AST 19 21 (13-39) U/L ALT 17 15 (7-52) U/L Alkaline Phosphatase 54 46 (34-104) U/L Albumin 3.6 3.1 L (3.4-5.0) gm/dl Urine 11/21/22 Range/Units 20:30 Urine Color Yellow Urine Appearance Clear (Clear) Urine pH 5.0 (4.5-7.5) Ur Specific Plover 1.023 (1.000-1.030) Urine Protein 1+ H (Negative) Urine Glucose (UA) Negative (Negative) Medications Administered Current Inpatient Medications Acetaminophen (Acetaminophen 325 Mg Tab) 650 mg PO Q4H PRN PRN Reason: Pain or Fever Stop: 12/21/22 22:01 Al Hydrox/Mg Hydrox/Simethicone (Aluminum/Magnesium Susp 30 Ml Udc) 15 ml PO Q4H PRN PRN Reason: Dyspepsia Stop: 12/21/22 22:01 Albuterol (Albut/Ipratrop 3mg/0.5mg Neb 3 Ml Vial) 3 ml NEB QIDR PRN; Protocol PRN Reason: sob/wheezing Stop: 12/21/22 22:01 Ascorbic Acid (Ascorbic Acid 500 Mg Tab) 500 mg PO DAILY RAZIA Stop: 12/22/22 08:59 Last Admin: 11/22/22 08:32 Dose: 500 mg Aspirin (Aspirin 81 Mg Ectab) 81 mg PO DAILY RAZIA Stop: 12/22/22 08:59 Last Admin: 11/22/22 08:32 Dose: 81 mg Atorvastatin Calcium (Atorvastatin 20 Mg Tab) 20 mg PO PM RAZIA Stop: 12/21/22 22:01 Last Admin: 11/21/22 23:21 Dose: 20 mg Clopidogrel Bisulfate (Clopidogrel Bisulfate 75 Mg Tab) 75 mg PO QAM RAZIA Stop: 12/22/22 08:59 Last Admin: 11/22/22 08:28 Dose: 75 mg Cyanocobalamin (Cyanocobalamin (B-12) 500 Mcg Tablet) 500 mcg PO DAILY RAZIA Stop: 12/22/22 08:59 Last Admin: 11/22/22 08:34 Dose: 500 mcg Dextrose (Dextrose 50% 50 Ml Syringe) 25 - 50 ml IV UD PRN; Protocol PRN Reason: Hypoglycemia Protocol Stop: 12/21/22 22:01 Enoxaparin Sodium (Enoxaparin Inj 40 Mg/0.4 Ml Syr) 40 mg SQ HS [facility] Stop: 12/21/22 22:59 Last Admin: 11/21/22 23:23 Dose: 40 mg Fluticasone Propionate (Fluticasone Propionate Na Spr 16 Gm Btl) 2 sprays NA DAILY RAZIA Stop: 12/22/22 08:59 Last Admin: 11/22/22 08:33 Dose: 2 sprays Fluticasone/Vilanterol (Fluticasone/Vilanterol 200/25mcg 14 Puffs/Inhaler) 1 puffs INH DAILY [facility] Stop: 12/22/22 08:59 Last Admin: 11/22/22 08:33 Dose: 1 puffs Glucagon (Glucagon For Inj 1 Mg Vial) 1 mg SQ UD PRN; Protocol PRN Reason: Hypoglycemia Protocol Stop: 12/21/22 22:01 Glucose (Glucose 10 Tab/Tube) 4 - 8 tab PO UD PRN; Protocol PRN Reason: Hypoglycemia Treatment Stop: 12/21/22 22:01 Glucose (Glucose 40% Gel 15 Gm Tube) 15 - 30 gm PO UD PRN; Protocol PRN Reason: Hypoglycemia Protocol Stop: 12/21/22 22:01 Guaifenesin (Guaifenesin 600 Mg Tabcr) 600 mg PO Q12H PRN PRN Reason: Cough Stop: 12/21/22 22:01 Last Admin: 11/22/22 08:28 Dose: 600 mg Piperacillin Sod/Tazobactam (Sod 3.375 gm/ Dextrose) 115 mls @ 28.75 mls/hr IV Q8H [facility]; Protocol Stop: 11/29/22 00:00 Last Admin: 11/22/22 08:41 Dose: 28.8 mls/hr Lactated Ringer's (Lr) 1,000 mls @ 80 mls/hr IV .[id number] [facility] Stop: 11/22/22 23:59 Last Admin: 11/21/22 23:14 Dose: 80 mls/hr Insulin Aspart (Insulin Aspart Per Unit Charge) 0 units SC ACHS RAZIA Stop: 12/21/22 22:59 Last Admin: 11/22/22 08:35 Dose: Not Given Magnesium Hydroxide (Magnesium Hydroxide Susp 30 Ml Udc) 30 ml PO Q12H PRN PRN Reason: Constipation Stop: 12/21/22 22:01 Magnesium Oxide (Magnesium Oxide 400 Mg Tab) 400 mg PO BID RAZIA Stop: 12/21/22 22:59 Last Admin: 11/22/22 08:32 Dose: 400 mg Metoprolol Tartrate (Metoprolol Tartrate 50 Mg Tab) 50 mg PO BID RAZIA Stop: 12/21/22 22:01 Last Admin: 11/22/22 08:32 Dose: 50 mg Miscellaneous (Carbohydrates For Hypoglycemia ) 15 - 30 gm PO UD PRN PRN Reason: Hypoglycemia Protocol Stop: 12/21/22 22:01 Ondansetron HCl (Ondansetron Inj 2 Mg/Ml 2 Ml Vial) 4 mg IV Q6H PRN PRN Reason: Nausea Stop: 12/21/22 22:01 Pantoprazole Sodium (Pantoprazole 40 Mg Tab) 40 mg PO BID RAZIA Stop: 12/21/22 22:59 Last Admin: 11/22/22 08:28 Dose: 40 mg Polyethylene Glycol (Polyethylene (Miralax) 17 Gm Pack) 17 gm PO DAILY PRN PRN Reason: Constipation Stop: 12/21/22 22:01
[2022-11-22] MEDS: LACTATED RINGER'S 1,000 ML IV SCH (14:33)
[2022-11-22] MEDS: ENOXAPARIN INJ 40 MG/0.4 ML SYR SQ SCH (20:40)
[2022-11-22] MEDS: ATORVASTATIN 20 MG TAB PO SCH (20:40)
[2022-11-23] MEDS ORDERED: LORazepam 0.5 MG TAB PO PRN (00:12)
[2022-11-23] MEDS: PIPERACILLIN/TAZOBACTAM 3.375 GM in DEXTROSE 5% 100 ML IV SCH ×2 (00:48→08:19)
[2022-11-23 06:39] LABS: Hematocrit (blood only) 25.8 % (42.0-52.0); Hemoglobin 8.5 g/dl (14.0-18.0); Mean Corpuscular Hemoglobin 30.1 pg (25.0-34.0); Mean Corpuscular Hgb Conc 32.9 g/dL (32.0-36.0); Mean Corpuscular Volume 91.5 fL (80.0-100.0); Mean Platelet Volume 10.3 fL (9.4-12.4); Platelet Count 202 K/uL (130-400); RDW Coefficient of Variation 13.2 % (11.5-14.5); RDW Standard Deviation 44.2 fL (36.4-46.3); Red Blood Count 2.82 M/uL (4.70-6.10); White Blood Count 8.56 K/ul (4.8-10.8)
[2022-11-23 06:58] LABS: BUN Creatinine Ratio 11.5 (10-20); Calcium 8.8 mg/dl (8.6-10.3); Creatinine Clr Calc Pharmacy 41.7 ml/min; Est GFR (African American) 74.5 ml/min; Est GFR (Non-African American) 64.3 ml/min; Potassium 3.9 mmol/L (3.5-5.1)
[2022-11-23] MEDS: ASCORBIC ACID 500 MG TAB PO SCH (08:17)
[2022-11-23] MEDS: MAGNESIUM OXIDE 400 MG TAB PO SCH ×2 (08:18→20:12)
[2022-11-23] MEDS: ASPIRIN 81 MG ECTAB PO SCH (08:18)
[2022-11-23] MEDS: PANTOprazole 40 MG TAB PO SCH ×2 (08:18→20:13)
[2022-11-23] MEDS: CYANOCOBALAMIN (B-12) 500 MCG TABLET PO SCH (08:18)
[2022-11-23] MEDS: CLOPIDOGREL BISULFATE 75 MG TAB PO SCH (08:18)
[2022-11-23] MEDS: METOPROLOL TARTRATE 50 MG TAB PO SCH ×2 (08:18→20:12)
[2022-11-23] MEDS: FLUTICASONE/VILANTEROL 200/25MCG 14 PUFFS/INHALER INH SCH (08:19)
[2022-11-23] MEDS: FLUTICASONE PROPIONATE NA SPR 16 GM BTL SCH (08:19)
[2022-11-23] MEDS: INSULIN ASPART PER UNIT CHARGE SC SCH ×4 (08:23→21:00)
--- NOTE | 2022-11-23 12:55 | Hospitalist Progress Note ---
Date of Service November 23, 2022 Assessment & Plan (1) Sepsis: (2) Infectious encephalopathy: (3) Pneumonitis: (4) Bronchiectasis: (5) COPD (chronic obstructive pulmonary disease): (6) Chronic respiratory failure with hypoxia: Plan This is an 87-year-old male who has a significant past medical history of COPD, chronic hypoxic resp failure on 2L of O2, bronchiectasis, atrial fibrillation, history of SSS status post pacemaker, CAD with history of cardiac stent and CABG, presence of Watchman left atrial appendage closure device, T2DM, hyperlipidemia, HTN, GERD, anemia, memory loss who was admitted for sepsis due to aspiration pneumonia Sepsis due to aspiration pneumonia with encephalopathy-sepsis resolved. Encephalopathy resolved. Known Bronchiectasis COPD with chronic hypoxic resp failure on 2L of O2, no exacerbation -Had vomiting 2 days prior to admission, fever and chills at home and presenting with sepsis. - WBC normalized. Lactate normal, procalcitonin negative. UA unremarkable. Negative. -Continue Zosyn. Will change to Augmentin at discharge CT chest 1. Bibasilar opacities, greater on the left. The findings may reflect pneumonia or aspiration pneumonitis. Radiographic follow-up to ensure resolution is recommended. 2. Suspected trace left pleural effusion. Head CT with no abnormality PAF with hx of watchman device no anticoag in setting of watchman continue metoprolol T2DM- hold metformin a1c 6.8, insulin per protocol Normocytic anemia- Hb 8.5. Relatively stable. No bleeding DVT ppx:SQ lovenox Dispo: Pending PT OT evaluation. Admission and Anticipated Discharge Date Admission Date: November 21, 2022 Subjective Patient was seen and examined at bedside. He feels he is doing better. States he felt good when he woke to the bathroom. States his body is stiff from lying in bed and would like some movements. No fever, chills, chest pain or shortness of breath nausea or vomiting. denies any other issues. Review of Systems Review of Systems: All systems reviewed & are unremarkable except as noted in Subjective Physical Exam Physical Exam: General: Sitting comfortably in bed eating breakfast, not in distress, on NC HEENT: EOMI, BANDAR, MMM Chest: Fair breath sounds bilaterally, no wheezes or crackles CVS: Regular rate and rhythm, normal heart sounds, no murmur Abdomen: Soft, non tender, not distended, normal bowel sounds Neuro: Awake, alert, oriented, conversing well, non focal Extremities: No cyanosis, clubbing or edema Results & Data Results & Data Vital Signs (Past 12 Hours) Vital Signs Temp Pulse Resp BP Pulse Ox O2 Del Method O2 Flow Rate 11/23/22 08:56 Nasal Cannula 2 11/23/22 07:19 36.9 C 60 14 137/67 98 Nasal Cannula 2 11/23/22 01:25 Nasal Cannula 2 Laboratory Results Short CBC 11/23/22 Range/Units 05:39 WBC 8.56 (4.8-10.8) K/ul Hgb 8.5 L (14.0-18.0) g/dl Hct 25.8 L (42.0-52.0) % Plt Count 202 (130-400) K/uL BMP 11/23/22 05:39 Sodium 141 Potassium 3.9 Chloride 106 Carbon Dioxide 30 BUN 12 Creatinine 1.04 Glucose 126 H Calcium 8.8 Medications Administered Current Inpatient Medications Acetaminophen (Acetaminophen 325 Mg Tab) 650 mg PO Q4H PRN PRN Reason: Pain or Fever Stop: 12/21/22 22:01 Al Hydrox/Mg Hydrox/Simethicone (Aluminum/Magnesium Susp 30 Ml Udc) 15 ml PO Q4H PRN PRN Reason: Dyspepsia Stop: 12/21/22 22:01 Albuterol (Albut/Ipratrop 3mg/0.5mg Neb 3 Ml Vial) 3 ml NEB QIDR PRN; Protocol PRN Reason: sob/wheezing Stop: 12/21/22 22:01 Ascorbic Acid (Ascorbic Acid 500 Mg Tab) 500 mg PO DAILY [facility] Stop: 12/22/22 08:59 Last Admin: 11/23/22 08:17 Dose: 500 mg Aspirin (Aspirin 81 Mg Ectab) 81 mg PO DAILY [facility] Stop: 12/22/22 08:59 Last Admin: 11/23/22 08:18 Dose: 81 mg Atorvastatin Calcium (Atorvastatin 20 Mg Tab) 20 mg PO PM [facility] Stop: 12/21/22 22:01 Last Admin: 11/22/22 20:40 Dose: 20 mg Clopidogrel Bisulfate (Clopidogrel Bisulfate 75 Mg Tab) 75 mg PO QAM [facility] Stop: 12/22/22 08:59 Last Admin: 11/23/22 08:18 Dose: 75 mg Cyanocobalamin (Cyanocobalamin (B-12) 500 Mcg Tablet) 500 mcg PO DAILY [facility] Stop: 12/22/22 08:59 Last Admin: 11/23/22 08:18 Dose: 500 mcg Dextrose (Dextrose 50% 50 Ml Syringe) 25 - 50 ml IV UD PRN; Protocol PRN Reason: Hypoglycemia Protocol Stop: 12/21/22 22:01 Enoxaparin Sodium (Enoxaparin Inj 40 Mg/0.4 Ml Syr) 40 mg SQ HS [facility] Stop: 12/21/22 22:59 Last Admin: 11/22/22 20:40 Dose: 40 mg Fluticasone Propionate (Fluticasone Propionate Na Spr 16 Gm Btl) 2 sprays NA DAILY [facility] Stop: 12/22/22 08:59 Last Admin: 11/23/22 08:19 Dose: 2 sprays Fluticasone/Vilanterol (Fluticasone/Vilanterol 200/25mcg 14 Puffs/Inhaler) 1 puffs INH DAILY [facility] Stop: 12/22/22 08:59 Last Admin: 11/23/22 08:19 Dose: 1 puffs Glucagon (Glucagon For Inj 1 Mg Vial) 1 mg SQ UD PRN; Protocol PRN Reason: Hypoglycemia Protocol Stop: 12/21/22 22:01 Glucose (Glucose 10 Tab/Tube) 4 - 8 tab PO UD PRN; Protocol PRN Reason: Hypoglycemia Treatment Stop: 12/21/22 22:01 Glucose (Glucose 40% Gel 15 Gm Tube) 15 - 30 gm PO UD PRN; Protocol PRN Reason: Hypoglycemia Protocol Stop: 12/21/22 22:01 Guaifenesin (Guaifenesin 600 Mg Tabcr) 600 mg PO Q12H PRN PRN Reason: Cough Stop: 12/21/22 22:01 Last Admin: 11/22/22 20:41 Dose: 600 mg Piperacillin Sod/Tazobactam (Sod 3.375 gm/ Dextrose) 115 mls @ 28.75 mls/hr IV Q8H [facility]; Protocol Stop: 11/29/22 00:00 Last Infusion: 11/23/22 12:05 Dose: Infused Insulin Aspart (Insulin Aspart Per Unit Charge) 0 units SC ACHS [facility] Stop: 12/21/22 22:59 Last Admin: 11/23/22 12:22 Dose: Not Given Lorazepam (Lorazepam 0.5 Mg Tab) 0.25 mg PO TID PRN PRN Reason: Anxiety Stop: 12/23/22 00:11 Last Admin: 11/23/22 00:48 Dose: 0.25 mg Magnesium Hydroxide (Magnesium Hydroxide Susp 30 Ml Udc) 30 ml PO Q12H PRN PRN Reason: Constipation Stop: 12/21/22 22:01 Magnesium Oxide (Magnesium Oxide 400 Mg Tab) 400 mg PO BID [facility] Stop: 12/21/22 22:59 Last Admin: 11/23/22 08:18 Dose: 400 mg Metoprolol Tartrate (Metoprolol Tartrate 50 Mg Tab) 50 mg PO BID [facility] Stop: 12/21/22 22:01 Last Admin: 11/23/22 08:18 Dose: 50 mg Miscellaneous (Carbohydrates For Hypoglycemia ) 15 - 30 gm PO UD PRN PRN Reason: Hypoglycemia Protocol Stop: 12/21/22 22:01 Ondansetron HCl (Ondansetron Inj 2 Mg/Ml 2 Ml Vial) 4 mg IV Q6H PRN PRN Reason: Nausea Stop: 12/21/22 22:01 Pantoprazole Sodium (Pantoprazole 40 Mg Tab) 40 mg PO BID [facility] Stop: 12/21/22 22:59 Last Admin: 11/23/22 08:18 Dose: 40 mg Polyethylene Glycol (Polyethylene (Miralax) 17 Gm Pack) 17 gm PO DAILY PRN PRN Reason: Constipation Stop: 12/21/22 22:01
[2022-11-23] MEDS: AMPICILLIN/SULBACTAM SOD 3,000 MG in 0.9 % SODIUM CHLORIDE 100 ML IV SCH ×2 (16:07→21:44)
[2022-11-23] MEDS: ENOXAPARIN INJ 40 MG/0.4 ML SYR SQ SCH (20:12)
[2022-11-23] MEDS: ATORVASTATIN 20 MG TAB PO SCH (20:13)
[2022-11-24] MEDS: AMPICILLIN/SULBACTAM SOD 3,000 MG in 0.9 % SODIUM CHLORIDE 100 ML IV SCH ×2 (03:52→11:03)
[2022-11-24] MEDS: FLUTICASONE/VILANTEROL 200/25MCG 14 PUFFS/INHALER INH SCH (08:57)
[2022-11-24] MEDS: FLUTICASONE PROPIONATE NA SPR 16 GM BTL SCH (08:57)
[2022-11-24] MEDS: METOPROLOL TARTRATE 50 MG TAB PO SCH (08:57)
[2022-11-24] MEDS: guaiFENesin 600 MG TABCR PO PRN (08:58)
[2022-11-24] MEDS: MAGNESIUM OXIDE 400 MG TAB PO SCH (08:58)
[2022-11-24] MEDS: CLOPIDOGREL BISULFATE 75 MG TAB PO SCH (08:58)
[2022-11-24] MEDS: ASPIRIN 81 MG ECTAB PO SCH (08:58)
[2022-11-24] MEDS: PANTOprazole 40 MG TAB PO SCH (08:58)
[2022-11-24] MEDS: ASCORBIC ACID 500 MG TAB PO SCH (08:59)
[2022-11-24] MEDS: CYANOCOBALAMIN (B-12) 500 MCG TABLET PO SCH (08:59)
[2022-11-24] MEDS ORDERED: SACCHAROMYCES BOULARDII 250 MG CAP PO SCH (09:00)
[2022-11-24] MEDS: INSULIN ASPART PER UNIT CHARGE SC SCH ×2 (09:00→12:40)
--- NOTE | 2022-11-24 15:50 | Discharge Summary ---
Date of Service November 24, 2022 Admission HPI Per Admitting Provider This is an 87-year-old male who has a significant past medical history of COPD, chronic hypoxic resp failure on 2L of O2, bronchiectasis, atrial fibrillation, history of SSS status post pacemaker, CAD with history of cardiac stent and CABG, presence of Watchman left atrial appendage closure device, T2DM, hyperlipidemia, HTN, GERD, anemia, memory loss who presents to ED secondary to Chest pain x1 day. Of significance patient was seen in ED 2 days prior secondary to fever and rigors. At that time work-up revealed a WBC 14.8 K, hypomagnesemia at 1.0, hypophosphatemia at 1.8, negative urinalysis for infection and negative [employer] respiratory panel. CT abdomen pelvis was performed which was negative for any acute abnormality. Head CT was also negative for any acute or cranial finding. He was discharged to home with magnesium replacement, phosphorus replacement, Pepcid and Zofran. Today patient complained of substernal chest pain and requested nitro. He received nitro x2 administered by daughter. She then summoned EMS. When patient arrived at the ER daughter noted patient to become more confused and wanting to leave. This is new for the patient. She states 2 days ago he did have a mild elevated fever at 100.3, rigors, but denies any further elevated temp. ROS unable to be obtained from patient as he is alert but confused. Daughter does complain of mild cough; however, he has been maintaining on his chronic 2 L of oxygen. She denies any syncope, nausea, vomiting, diarrhea or abdominal pain. In ED patient continues to have mild leukocytosis, H&H 9.2 and 28.1, BUN 16, creatinine 1.01, mag 1.3 And chest x-ray revealed bibasilar opacities, greater on the left, these findings may reflect pneumonia or aspiration pneumonitis, suspected trace pleural effusion. He received IV Zosyn in ED. Due to acute onset confusion head CT was performed which was negative for any acute intracranial abnormality. Admission Exam Per Admitting Provider Constitutional: WD/WN,toxic appearing, Elderly, M, vitals as above, NAD, sitting up in bed, pleasant but confused Head: Normocephalic, Atraumatic Eyes: PERRL, conjunctivae normal, anicteric sclerae ENMT: external ear and nose normal, oropharynx normal Neck: trachea midline, no thyromegaly normal visual inspection Respiratory: normal respiratory effort, lungs clear to auscultation, no wheeze, rales, rhonchi. Normal insp/exp effort, no accessory muscle use Cardiovascular: RRR, no murmur, no edema Vessels: no JVD or carotid bruit Chest: normal inspection of chest Abdomen: normal bowel sounds, soft, nontender, no hepatosplenomegaly Musculoskeletal: no cyanosis or clubbing, AROM x 4 Skin: no rashes, warm and dry normal turgor Neurologic: PERRL, EOMI, accommodation nl, no face palsy, no dysarthria CN's II-XI intact bilaterally and moves all extremities Psychiatric: A+Ox1, euthymic affect Lymphatic: no cervical or axillary lymphadenopathy : deferred Principal Diagnosis Sepsis with metabolic cephalopathy due to aspiration pneumonia Discharge Exam General: Sitting comfortably in chair, not in distress, on NC HEENT: EOMI, BANDAR, MMM Chest: Fair breath sounds bilaterally, no wheezes or crackles CVS: Regular rate and rhythm, normal heart sounds, no murmur Abdomen: Soft, non tender, not distended, normal bowel sounds Neuro: Awake, alert, oriented, conversing well, non focal Extremities: No cyanosis, clubbing or edema Discharge Data Allergies Allergy/AdvReac Type Severity Reaction Status Date / Time Iodinated Contrast Media Allergy Severe Hives Verified 11/19/22 22:42 Sulfa (Sulfonamide Allergy Severe Rash Verified 11/19/22 22:42 Antibiotics) melatonin Allergy Unknown Unknown Verified 11/19/22 22:42 sertraline [From Zoloft] Allergy Unknown Verified 11/19/22 22:42 isosorbide AdvReac Severe GI SYMPTOMS Verified 11/19/22 22:42 Consultations 11/21/22 17:24 ED Decision to Admit Stat Ordered Studies 11/21/22 18:[address] [CT head/brain wo con] Stat Laboratory Results WBC 8.56 K/ul (4.8-10.8) 11/23/22 05:39 RBC 2.82 M/uL (4.70-6.10) L 11/23/22 05:39 Hgb 8.5 g/dl (14.0-18.0) L 11/23/22 05:39 Hct 25.8 % (42.0-52.0) L 11/23/22 05:39 MCV 91.5 fL (80.0-100.0) 11/23/22 05:39 MCH 30.1 pg (25.0-34.0) 11/23/22 05:39 MCHC 32.9 g/dL (32.0-36.0) 11/23/22 05:39 RDW Std Deviation 44.2 fL (36.4-46.3) 11/23/22 05:39 RDW Coeff of [place] 13.2 % (11.5-14.5) 11/23/22 05:39 Plt Count 202 K/uL (130-400) 11/23/22 05:39 MPV 10.3 fL (9.4-12.4) 11/23/22 05:39 Immature Gran % (Auto) 0.7 % 11/22/22 06:05 Neut % (Auto) 79.7 % 11/22/22 06:05 Lymph % (Auto) 12.1 % 11/22/22 06:05 [place] % (Auto) 7.1 % 11/22/22 06:05 Eos % (Auto) 0.1 % 11/22/22 06:05 Baso % (Auto) 0.3 % 11/22/22 06:05 Neut # (Auto) 10.18 K/uL (1.40-6.50) H 11/22/22 06:05 Lymph # (Auto) 1.54 K/uL (1.2-3.4) 11/22/22 06:05 [place] # (Auto) 0.90 K/uL (0.11-0.59) H 11/22/22 06:05 Eos # (Auto) 0.01 K/uL (0-0.50) 11/22/22 06:05 Baso # (Auto) 0.04 K/uL (0-0.2) 11/22/22 06:05 Immature Gran # (Auto) 0.09 K/uL (0.01-0.20) 11/22/22 06:05 PT 10.9 Seconds (9.0-12.0) 11/21/22 16:05 INR 1.0 (0.9-1.1) 11/21/22 16:05 APTT 25.0 Seconds (21.0-31.0) 11/21/22 16:05 PTT Ratio 0.9 11/21/22 16:05 Sodium 141 mmol/L (136-145) 11/23/22 05:39 Potassium 3.9 mmol/L (3.5-5.1) 11/23/22 05:39 Chloride 106 mmol/L (98-107) 11/23/22 05:39 Carbon Dioxide 30 mmol/L (21-32) 11/23/22 05:39 Anion Gap 5 (3-11) 11/23/22 05:39 BUN 12 mg/dl (6-23) 11/23/22 05:39 Creatinine 1.04 mg/dl (0.6-1.4) 11/23/22 05:39 Est Cr Clr Drug Dosing 41.7 ml/min 11/23/22 05:39 Est GFR ( Amer) 74.5 ml/min 11/23/22 05:39 Est GFR (Non-Af Amer) 64.3 ml/min 11/23/22 05:39 BUN/Creatinine Ratio 11.5 (10-20) 11/23/22 05:39 Glucose 126 mg/dl (70-99(Fasting)) H 11/23/22 05:39 POC Glucose 115 mg/dl (70-99) H 11/24/22 11:59 Estimat Average Glucose 148 mg/dl 11/22/22 06:05 Hemoglobin A1c 6.8 % (4.5-5.6) H 11/22/22 06:05 Lactate 1.7 mmol/L (0.4-2.0) 11/21/22 17:12 Calcium 8.8 mg/dl (8.6-10.3) 11/23/22 05:39 Magnesium 2.5 mg/dl (1.7-2.4) H 11/22/22 06:05 Total Bilirubin 0.9 mg/dl (0.2-1.0) 11/22/22 06:05 AST 21 U/L (13-39) 11/22/22 06:05 ALT 15 U/L (7-52) 11/22/22 06:05 Alkaline Phosphatase 46 U/L (34-104) 11/22/22 06:05 Troponin I High Sens 19.8 pg/ml (0-20) 11/22/22 06:05 Total Protein 5.2 gm/dl (6.0-8.3) L 11/22/22 06:05 Albumin 3.1 gm/dl (3.4-5.0) L 11/22/22 06:05 Globulin 2.1 gm/dl (2.5-4.0) L 11/22/22 06:05 Albumin/Globulin Ratio 1.5 (0.9-2) 11/22/22 06:05 Lipase 11 U/L (11-82) 11/21/22 16:05 Procalcitonin 0.07 ng/ml (0-0.5) 11/21/22 16:26 Urine Color Yellow 11/21/22 20:30 Urine Appearance Clear (Clear) 11/21/22 20:30 Urine pH 5.0 (4.5-7.5) 11/21/22 20:30 Ur Specific [place] 1.023 (1.000-1.030) 11/21/22 20:30 Urine Protein 1+ (Negative) H 11/21/22 20:30 Urine Glucose (UA) Negative (Negative) 11/21/22 20:30 Urine Ketones Trace (Negative) H 11/21/22 20:30 Urine Blood Negative (Negative) 11/21/22 20:30 Urine Nitrite Negative (Negative) 11/21/22 20:30 Urine Bilirubin Negative (Negative) 11/21/22 20:30 Urine Urobilinogen Negative (Negative) 11/21/22 20:30 Ur Leukocyte Esterase Negative (Negative) 11/21/22 20:30 Urine WBC (Auto) 1-5 /hpf (0-5) 11/21/22 20:30 Urine RBC (Auto) 0-4 /hpf (0-4) 11/21/22 20:30 U Hyaline Cast (Auto) 1-5 /lpf (0-5) 11/21/22 20:30 U Epithel Cells (Auto) 5-10 /lpf (0-5) H 11/21/22 20:30 Urine Bacteria (Auto) Negative (Negative) 11/21/22 20:30 Uric Acid Crystals Present (None Prsent) A 11/21/22 20:30 Urine Yeast Not Reportable 11/21/22 20:30 SARS-CoV-2, RNA, NAAT NEGATIVE (NEGATIVE) 11/21/22 19:40 Impressions Chest X-Ray 11/21/22 15:57 XR chest 1V portable CLINICAL HISTORY: Chest pain, nonspecific COMPARISON STUDY: Chest CT May 19, 2022. Chest radiograph November 19, 2022. FINDINGS: There are median sternotomy wires and a dual-lead left subclavian pacer. No pneumothorax is present. There may be a trace left pleural effusion. Left basilar airspace opacity is present. There may be minimal right basilar opacity. There is no evidence for pulmonary edema. Cardiomediastinal silhouette is stable. IMPRESSION: 1. Bibasilar opacities, greater on the left. The findings may reflect pneumonia or aspiration pneumonitis. Radiographic follow-up to ensure resolution is recommended. 2. Suspected trace left pleural effusion. ACT 112: Negative or not required by law. Electronically signed by: Saul Harris M.D. 11/21/2022 4:[address] 11/21/22 18:01 CT OF THE HEAD WITHOUT CONTRAST CLINICAL HISTORY: Altered mental status. COMPARISON STUDY: Head CT November 19, 2022 and May 19, 2022. CT DOSE: 614.27 mGy.cm TECHNIQUE: Helical axial images of the head were obtained without IV contrast. Automated exposure control was utilized for the study. A dose lowering technique was utilized adhering to the principles of ALARA. FINDINGS: No acute intracranial hemorrhage, midline shift or mass effect is present. The ventricular system is stable. White matter hypodensities are unchanged and favor small vessel disease. The basal cisterns are patent. No extra-axial collections are present. There are no findings to suggest acute dural sinus thrombosis or acute territorial infarct. No significant calvarial abnormalities are present. Visualized portions of the sinuses and mastoid air cells are clear. IMPRESSION: No acute intracranial findings. ACT 112: Negative or not required by law. Electronically signed by: Saul Harris M.D. 11/21/2022 6:59 PM Hospital Course (1) Sepsis: (2) Infectious encephalopathy: (3) Pneumonitis: (4) Bronchiectasis: (5) COPD (chronic obstructive pulmonary disease): (6) Chronic respiratory failure with hypoxia: Plan This is an 87-year-old male who has a significant past medical history of COPD, chronic hypoxic resp failure on 2L of O2, bronchiectasis, atrial fibrillation, history of SSS status post pacemaker, CAD with history of cardiac stent and CABG, presence of Watchman left atrial appendage closure device, T2DM, hyperlipidemia, HTN, GERD, anemia, memory loss who was admitted for sepsis with metabolic encephalopathy due to aspiration pneumonia. Started on empiric antibiotics with improvement in his symptoms. He is back to his baseline and is anxious to go home. Cleared by physical therapy. No discharge needs identified. Spoke to family at bedside yesterday regarding discharge plan. He is comfortable and stable for discharge home. Sepsis due to aspiration pneumonia with encephalopathy-sepsis resolved. Encephalopathy resolved. Known Bronchiectasis COPD with chronic hypoxic resp failure on 2L of O2, no exacerbation -Had vomiting 2 days prior to admission, fever and chills at home and presenting with sepsis. - WBC normalized. Lactate normal, procalcitonin negative. UA unremarkable. -Status post Zosyn-> Unasyn. Being changed to Augmentin at discharge to complete 7-day of antibiotic course. Also started on probiotic. CT chest 1. Bibasilar opacities, greater on the left. The findings may reflect pneumonia or aspiration pneumonitis. Radiographic follow-up to ensure resolution is recommended. 2. Suspected trace left pleural effusion. Head CT with no abnormality PAF with hx of watchman device no anticoag in setting of watchman continue metoprolol [id number] home metformin, A1c 6.8 Normocytic anemia- Hb 8.5. Relatively stable. No bleeding Total Time Total Time Spent Total Time Spent (In Minutes): 35 Discharge Plan Discharge Items Patient Disposition: Home - Self-Care Reason For Visit: ASPIRATION PNA Discharge Diagnosis: Sepsis with metabolic encephalopathy due to aspiration pneumonia, bronchiectasis Activity: Resume your previous activity Non-emergency contact: Primary Care Provider Call non-emergency contact if: you have any medication questions, your symptoms worsen and you have a fever Follow-up/Referrals: Kori Damon MD [Primary Care Provider] - 11/27/22 11:20 am (Date & Time 11/27/2022 11:20 AM Provider Kori Gutierrez MD Department Family Medicine [facility] ) Diet: Regular Addtl Attending Provider Instructions: Continue Augmentin twice daily for 4 more days starting tonight Continue probiotic Follow-up with your family doctor in a week Pending Studies at Discharge: No Stand-Alone Forms: [employer], Smoking Cessation Medications and DC Order Prescriptions: New Saccharomyces boulardii [Florastor] 250 mg Capsule 250 mg PO DAILY Qty: 10 0RF amoxicillin-pot clavulanate 875-125 mg tablet 1 tab PO Q12H Qty: 8 0RF Continued metformin 500 mg Tablet 1,000 mg PO AMPM atorvastatin 20 mg tablet 20 mg PO PM albuterol sulfate 2.5 mg /3 mL (0.083 %) Solution For Nebulization 2.5 mg INHALATION BID hydrocodone-acetaminophen 5-325 mg tablet 1 tab PO Q8H PRN (Reason: Pain) clopidogrel 75 mg tablet 75 mg PO QAM metoprolol tartrate 50 mg tablet 50 mg PO BID omeprazole 20 mg capsule,delayed release(DR/EC) 20 mg PO AMPM aspirin 81 mg tablet,delayed release (DR/EC) 81 mg PO DAILY ascorbic acid (vitamin C) [Vitamin C] 500 mg Tablet 500 mg PO DAILY lorazepam 1 mg tablet 1 mg PO Q8 PRN (Reason: Anxiety) fluticasone furoate-vilanterol [Breo Ellipta] 200-25 mcg/dose blister with device 1 ea INHALATION DAILY guaifenesin 600 mg Tablet Extended Release 12hr 600 mg PO Q12H PRN (Reason: Cough) fluticasone propionate 50 mcg/actuation [place],Suspension 2 spray INTRANASAL DAILY Rx Instructions: administer into each nostril nitroglycerin 0.4 mg tablet, sublingual 0.4 mg sublingual .EVERY 5 MINUTES PRN (Reason: Chest Pain) ketoconazole 2 % cream 1 applic TOPICAL BID PRN (Reason: when flaring) guaifenesin 400 mg Tablet 400 mg PO QPM magnesium oxide 400 mg magnesium capsule 400 mg PO BID Qty: 14 0RF cyanocobalamin (vitamin B-12) 500 mcg Tablet 500 mcg PO DAILY Discharge Orders: Discharge Order (Routine); Ordered 11/24/22 Ordered By: Benjie Chen/Other Patient Handouts: Managing Type 2 Diabetes, Preventing Deep Vein Thrombosis Admission Data Admit Date/Time: 11/21/22 17:33 Attending Provider: Benjie Garcia Admit Provider: Benjie Garcia Primary Care Provider: Kori Damon Other Providers: Benjie Garcia Other Interventions: Discharge Summary Assessment (RN) Last Done: 11/24/22 14:00
== END 2022-11-24 15:45 | disposition home or self-care (01) | DRG 871 ==
LOC: ED 15:44 → 2W 17:33 → 3N 11-23 01:10